=== PATIENT | female | born 1980 | race Two or more races ===

== ENCOUNTER → 2020-04-23 10:27 | Outpatient (BNVA) | payer MEDICAID, SELFPAY | PROVIDERS: PCP Internal Medicine Geriatric Medicine; Referring Provider Internal Medicine Geriatric Medicine; Visit Provider Physician Assistant | DX: K21.9 Gastro-esophageal reflux disease without esophagitis (principal); R19.7 Diarrhea, unspecified | CPT/HCPCS: 99213 ==

== ENCOUNTER 2020-05-05 09:58 | Outpatient (REF) | payer MEDICAID, SELFPAY ==
--- NOTE | 2020-05-05 | US_ITS ---
EXAMINATION: US RETROPERITONEAL LIMITED (RENAL ONLY) CLINICAL INFORMATION: Renal stones. COMPARISON: Limited retroperitoneal ultrasound study dated 12/25/2018 and 12/26/2017. KUB dated 03/03/2016. CT abdomen and pelvis without and with contrast dated 02/02/2016. TECHNIQUE: Real-time imaging of the kidneys. FINDINGS: RIGHT KIDNEY: 10.0 x 4.8 x 4.6 cm (SAG x AP x TRV). The kidney is normal in size, contour, and echogenicity. Renal cortical thickness is normal. No calculi or focal parenchymal lesions. No hydronephrosis. LEFT KIDNEY: 9.8 x 4.6 x 4.8 cm (SAG x AP x TRV). The kidney is normal in size, contour, and echogenicity. Renal cortical thickness is normal. No calculi or focal parenchymal lesions. No hydronephrosis. There is an extrarenal left kidney pelvis noted. US/US renal BI IMPRESSION: Unremarkable kidney exam. There is an extrarenal left kidney pelvis.
== END 2020-05-05 09:59 | disposition home or self-care (01) ==
LOC: HO.US 09:58
PROVIDERS: PCP Internal Medicine Geriatric Medicine; Visit Provider Urology
DX: N20.0 Calculus of kidney (principal); Z87.442 Personal history of urinary calculi
CPT/HCPCS: 76775

== ENCOUNTER → 2020-05-28 09:46 | Outpatient (BNVA) | payer MEDICAID, SELFPAY | PROVIDERS: PCP Internal Medicine Geriatric Medicine; Referring Provider Internal Medicine Geriatric Medicine; Visit Provider Internal Medicine Gastroenterology | DX: Z13.89 Encounter for screening for other disorder (principal) ==

== ENCOUNTER → 2020-06-30 08:06 | Outpatient (REF) | payer MEDICAID, SELFPAY ==
--- NOTE | 2020-06-30 08:09 | NM_ITS ---
EXAMINATION: RADIONUCLIDE SOLID FOOD GASTRIC EMPTYING 4-HOUR STUDY CLINICAL INFORMATION: Gastroesophageal reflux disease. GERD with esophagitis, bloated comment abdominal pain, COMPARISON: No previous gastric emptying study is available for comparison. TECHNIQUE: A standard meal consisting of 4 oz of Egg Beaters brand equivalent tagged with 1.0 mCi Tc-99m Sulfur Colloid, 8 oz water and 2 slices of toast with jelly was administered orally to the patient. Images were obtained using a dual head gamma camera in the anterior and posterior projections over of the stomach immediately post ingestion and at hourly intervals up to 4 hours post ingestion. The anterior and posterior counts at each time interval were averaged using the geometric mean and expressed as percentage of the immediate post ingestion counts. FINDINGS: There is good visualization of activity in the stomach immediately post ingestion. As the study progresses, there is fair clearance of activity from the stomach and visualization of progressively increasing small bowel activity there is however at the end of the study there is mild abnormal retention of activity in the stomach at 4 hours. Retention in the stomach at each time interval was: 1 hour 53% (normal 37%-90%) 2 hours 36% (normal 30%-60%) 3 hours 26% 4 hours 20% (normal 0%-10%) NM/NM gastric emptying study IMPRESSION: Abnormal study. There is mild abnormal retention of solid food in the stomach at 4 hours.
== END ==
LOC: HO.NUCMED 08:06
PROVIDERS: Visit Provider Internal Medicine Gastroenterology
DX: K21.9 Gastro-esophageal reflux disease without esophagitis (principal)
CPT/HCPCS: 78264; A9541

== ENCOUNTER → 2020-07-14 09:28 | Outpatient (BNVA) | payer MEDICAID, SELFPAY | PROVIDERS: PCP Internal Medicine Geriatric Medicine; Visit Provider Urology | DX: N20.0 Calculus of kidney (principal); R39.15 Urgency of urination; N39.3 Stress incontinence (female) (male) | CPT/HCPCS: 51798; 81002; 99212 ==

== ENCOUNTER → 2020-07-28 09:04 | Outpatient (BNVA) | payer MEDICAID, SELFPAY | PROVIDERS: PCP Internal Medicine Geriatric Medicine; Visit Provider Urology | DX: N39.3 Stress incontinence (female) (male) (principal); N20.0 Calculus of kidney; R39.15 Urgency of urination | CPT/HCPCS: 51798; 81002; 99212 ==

== ENCOUNTER 2020-08-07 09:11 | Outpatient (REF) | payer MEDICAID, SELFPAY ==
[2020-08-08 09:14] LABS: BV Int Neg Control Negative (Negative); BV Int Pos Control Positive (Positive)
[2020-08-08 13:13] LABS: C. trachomatis RNA TMA NOT DETECTED (NOT DETECTED); N. gonorrhoeae RNA TMA NOT DETECTED (NOT DETECTED)
== END 2020-08-07 09:12 | disposition home or self-care (01) ==
LOC: HO.LAB 09:11
PROVIDERS: PCP Internal Medicine Geriatric Medicine; Visit Provider Advanced Practice Midwife
DX: R10.2 Pelvic and perineal pain (principal)
CPT/HCPCS: 36415; 87480; 87491; 87510; 87591; 87660; 99212

== ENCOUNTER 2020-08-20 11:00 | Outpatient (REF) | payer MEDICAID, SELFPAY ==
--- NOTE | ~2020-08-20 | US_ITS ---
EXAMINATION: PELVIC ULTRASOUND CLINICAL INFORMATION: Pain COMPARISON: Previous pelvic ultrasound November 2019 TECHNIQUE: Transabdominal and transvaginal pelvic ultrasound was performed. Transvaginal exam was performed for better visualization of the uterus and ovaries. FINDINGS: The uterus is retroverted and measures 7.1 x 4.8 x 5.2 cm in dimension. There is a 2.5 x 2.3 x 2.3 cm hypoechoic lesion in the posterior upper uterine body and fundus suggestive of an intramural fibroid. This is minimally increased from November 2019 exam when this measured 2.1 x 1.9 x 2.2 cm. No other focal uterine lesion is seen. Endometrial thickness is normal measuring 0.5 cm. The ovaries are normal. The right ovary measures 3.1 x 1.9 x 1.9 cm and the left ovary measures 3.8 x 1.3 x 2.8 cm. There is no fluid in the pelvis. US/US pelvic complete IMPRESSION: Uterine fibroid slightly increased in size from November 2019 exam. Otherwise unremarkable exam.
--- NOTE | ~2020-08-20 | US_ITS ---
EXAMINATION: PELVIC ULTRASOUND CLINICAL INFORMATION: Pain COMPARISON: Previous pelvic ultrasound November 2019 TECHNIQUE: Transabdominal and transvaginal pelvic ultrasound was performed. Transvaginal exam was performed for better visualization of the uterus and ovaries. FINDINGS: The uterus is retroverted and measures 7.1 x 4.8 x 5.2 cm in dimension. There is a 2.5 x 2.3 x 2.3 cm hypoechoic lesion in the posterior upper uterine body and fundus suggestive of an intramural fibroid. This is minimally increased from November 2019 exam when this measured 2.1 x 1.9 x 2.2 cm. No other focal uterine lesion is seen. Endometrial thickness is normal measuring 0.5 cm. The ovaries are normal. The right ovary measures 3.1 x 1.9 x 1.9 cm and the left ovary measures 3.8 x 1.3 x 2.8 cm. There is no fluid in the pelvis. US/US transvaginal IMPRESSION: Uterine fibroid slightly increased in size from November 2019 exam. Otherwise unremarkable exam.
== END 2020-08-20 11:01 | disposition home or self-care (01) ==
LOC: HO.US 11:00
PROVIDERS: Visit Provider Advanced Practice Midwife
DX: R10.2 Pelvic and perineal pain (principal)
CPT/HCPCS: 76830; 76856

== ENCOUNTER → 2020-08-22 10:52 | Outpatient (BNV) | payer MEDICAID, SELFPAY | PROVIDERS: PCP Internal Medicine Geriatric Medicine; Visit Provider Internal Medicine Medical Oncology | DX: D50.9 Iron deficiency anemia, unspecified (principal) | CPT/HCPCS: 99213; 99214 ==

== ENCOUNTER 2020-09-03 08:48 | Outpatient (REF) | payer MEDICAID, SELFPAY ==
[2020-09-04 10:18] LABS: BV Int Neg Control Negative (Negative); BV Int Pos Control Positive (Positive)
[2020-09-06 06:12] LABS: HPV mRNA E6/E7 rflx Not Detected (Not Detected)
== END 2020-09-03 08:49 | disposition home or self-care (01) ==
LOC: HO.LAB 08:48
PROVIDERS: PCP Internal Medicine Geriatric Medicine; Visit Provider Advanced Practice Midwife
DX: Z01.419 Encounter for gynecological examination (general) (routine) without abnormal findings (principal); Z11.51 Encounter for screening for human papillomavirus (HPV); L98.9 Disorder of the skin and subcutaneous tissue, unspecified
CPT/HCPCS: 36415; 87255; 87480; 87510; 87624; 87660; 88142

== ENCOUNTER → 2020-09-10 09:42 | Outpatient (BNVA) | payer MEDICAID, SELFPAY | PROVIDERS: PCP Internal Medicine Geriatric Medicine; Visit Provider Internal Medicine | DX: R00.2 Palpitations (principal); R06.02 Shortness of breath | CPT/HCPCS: 93005; 99202 ==

== ENCOUNTER → 2020-09-12 08:53 | Outpatient (REF) | payer MEDICAID, SELFPAY ==
--- NOTE | 2020-09-12 12:00 | ECG_ITS ---
Hook-up date: 2020-09-12 10:10:00 Duration: 47:59:00 Test Indications: PALPITATIONS Medications: [id number] QRS complexes * Ventricular ectopics which represent % of total QRS comp. * Supraventricular ectopics which represent % of total QRS comp. * Paced QRS complexs which represent % of total QRS comp. VENTRICULAR ECTOPY * Isolated * Bigeminal Cycles * Couplets * Runs * Beats in Runs * Beats LONGEST at * BPM at :: -- * Beats FASTEST at * BPM at :: -- SUPRAVENTRICULAR ECTOPY * Isolated * Couplets * Runs * Beats in Runs * Beats LONGEST at * BPM at :: -- * Beats FASTEST at * BPM at :: -- HEART RATES 52 MIN at 23:54:29 2020-09-13 80 AVG 140 MAX at 12:13:40 2020-09-12 LONGEST RR 1.2560 secs at 23:54:25 2020-09-13 S-T LEVELS Channel 1 - 128 mm at 10:10:00 2020-09-12 - 128 mm at 10:10:00 2020-09-12 Channel 2 - 128 mm at 10:10:00 2020-09-12 - 128 mm at 10:10:00 2020-09-12 Channel 3 - 128 mm at 02:92:91 -- - 128 mm at 02:92:91 Underlying rhythm is sinus; Average ventricular rate 80/min; range 52 to 140/min; About 10% of the time, ventricular rate >100/min; No significant ectopy, tachy or ashwin arrhythmias; Patient diary not available for review. Referred By: Pina Blair Overread By: PINA BLAIR
== END ==
LOC: HO.CARD 08:53
PROVIDERS: PCP Internal Medicine Geriatric Medicine; Visit Provider Internal Medicine
DX: R00.2 Palpitations (principal)
CPT/HCPCS: 93226

== ENCOUNTER 2020-09-17 09:27 | Outpatient (REF) | payer MEDICAID, SELFPAY | END 2020-09-17 09:28 | disposition home or self-care (01) | LOC: HO.LAB 09:27 | PROVIDERS: PCP Internal Medicine Geriatric Medicine; Visit Provider Advanced Practice Midwife | DX: L98.9 Disorder of the skin and subcutaneous tissue, unspecified (principal) | CPT/HCPCS: 87255; 99212 ==

== ENCOUNTER → 2020-10-09 11:29 | Outpatient (BNVA) | payer MEDICAID, SELFPAY | PROVIDERS: Visit Provider Advanced Practice Midwife ==

== ENCOUNTER 2020-10-14 11:19 | Outpatient (REF) | payer MEDICAID, SELFPAY ==
[2020-10-14 12:22] LABS: COVID-19 Test Negative (Negative); IDNOW Serial# 55D5AD1C
== END 2020-10-14 11:20 | disposition home or self-care (01) ==
LOC: HO.LAB 11:19
PROVIDERS: Visit Provider Internal Medicine
DX: Z20.822 Contact with and (suspected) exposure to COVID-19 (principal)
CPT/HCPCS: 36415; 87635; C9803

== ENCOUNTER → 2020-10-21 09:37 | Outpatient (REF) | payer MEDICAID, SELFPAY ==
--- NOTE | 2020-10-21 09:40 | CA_ITS ---
Transthoracic Echocardiogram Patient (Last, First, Middle): Jen Marrero M Gender: Female Date of : 1980 Age: 40 Procedure Date: 10/21/2020 Procedure Type: Transthoracic Echocardiogram Location: OP Height: 149.86 cm Weight: 57.61 kg BSA: 1.52 m2 Heart Rate: bpm BP: 122 / 60 mmHg Sustainability Executive Director: Referring MD: Alton Pena MD Symptoms: R06.02 - Shortness of breath Study Quality: Good ECG Rhythm: Sinus Conclusions: - The left ventricular systolic function is normal. The visually estimated ejection fraction is between 60-65%. - No obvious valvular pathology seen on this study. Findings Left Ventricle Normal left ventricular cavity size. There is normal left ventricular wall thickness. The left ventricular systolic function is normal. The visually estimated ejection fraction is between 60-65%. There is no evidence of regional wall motion abnormalities. Diastolic function is normal for age. Right Ventricle Normal right ventricular cavity size and systolic function. Atria The left atrium is normal in size. The right atrium is normal in size. Aortic Valve The aortic valve was not well visualized. The aortic valve structure and function is likely normal. There is no aortic valve stenosis. There is no aortic valve regurgitation. Mitral Valve The mitral valve appears normal. There is trace mitral valve regurgitation. There is no mitral valve stenosis. Pulmonic Valve The pulmonic valve was not well visualized. Tricuspid Valve Normal tricuspid valve structure. There is mild tricuspid valve regurgitation. The pulmonary artery systolic pressure is normal. Great Vessels The aortic annulus, sinuses of valsalva, and asc aorta are normal in size. Venous The inferior vena cava is normal in size and collapses greater than 50% with inspiration. Pericardium/Pleural There is no evidence of pericardial effusion. Prior Study Comparison No prior study available for comparison. Recommendations, Care & Conclusions No obvious valvular pathology seen on this study. Measurements 2D Linear Measurements IVSd: 0.87 0.6-0.9/0.6-1.0 cm LVIDd: 3.70 3.9-5.3/4.2-5.9 cm LVIDd Index: 2.43 2.4-3.2/2.2-3.1 cm/m2 LVIDs: 2.34 2.0-3.6 cm LVPWd: 0.99 0.7-1.1 cm Ao Root: 2.00 2.1-3.5 cm LA Diam: 2.60 2.7-3.8/3.0-4.0 cm LAIDs Index: 1.71 1.5-2.3 cm/m2 LV Mass: 125.50 67-162/88-224 g LV Mass Index: 82.56 43-95/49-115 g/m2 LVOT Diam: 2.00 3.0+(-)1.3 cm 2D Systolic Function EF 4C: 68.20 >55% EF 2C: 57.60 >55% EF BiP: 60.80 >55% Mitral Valve MV Pk E: 1.01 MV PK A: 0.49 MV Decel Time: 243.00 E/A: 2.10 E'Lateral: 18.20 E'Medial: 10.90 E/E' Med: 9.30 E/E' Lat: 5.50 PHT: 71.00 MVA PHT: 3.10 Decel Rawlins: 4.18 Aortic Valve AoV Pk Manan: 1.27 AoV Mn Manan: 0.86 AoV VTI: 0.33 AoV Pk Grad: 6.00 Aov Mn Grad: 3.00 RYAN Cont.VTI: 2.24 LVOT LVOT Pk Manan: 0.92 LVOT Mn Manan: 0.62 LVOT VTI: 0.24 LVOT Pk Grad: 3.00 LVOT Mn Grad: 2.00 LVOT Diam: 2.00 LVOT Area: 3.14 Diastolic Function MV Pk E: 1.01 MV Pk A: 0.49 E/A: 2.10 E'Medial: 10.90 E/E' Med: 9.30 E' Laterial: 18.20 E/E' Lat: 5.50 Tricuspid Valve TR Pk Manan: 2.06 TR Pk Grad: 17.00 RA Press: 3.00 RVSP: 20.00 Great Vessels Aorta Ao Root-2D: 2.00 2.0-3.7 cm Ao Asc: 2.20 2.1-3.4 cm Pulmonary Valve PV Pk Manan: 0.88 Peak PV Grad: 3.00 Updated in Other Vendor System with Status of Final Alton Pena MD electronically signed on 10/21/2020 11:01:27 AM with status of Final
--- NOTE | 2020-10-21 10:30 | ECG_ITS ---
Hook-up date: 2020-10-21 10:46:00 Duration: 25:46:00 Test Indications: PALPITATIONS Medications: [id number] QRS complexes * Ventricular ectopics which represent % of total QRS comp. 5 Supraventricular ectopics which represent <1 % of total QRS comp. * Paced QRS complexs which represent % of total QRS comp. VENTRICULAR ECTOPY * Isolated * Bigeminal Cycles * Couplets * Runs * Beats in Runs * Beats LONGEST at * BPM at :: -- * Beats FASTEST at * BPM at :: -- SUPRAVENTRICULAR ECTOPY 5 Isolated 0 Couplets 0 Runs 0 Beats in Runs * Beats LONGEST at * BPM at :: -- * Beats FASTEST at * BPM at :: -- HEART RATES 53 MIN at 09:49:38 2020-10-22 80 AVG 132 MAX at 16:41:23 2020-10-21 LONGEST RR 1.2080 secs at 06:03:58 2020-10-22 S-T LEVELS Channel 1 - 128 mm at 10:46:00 2020-10-21 - 128 mm at 10:46:00 2020-10-21 Channel 2 - 128 mm at 10:46:00 2020-10-21 - 128 mm at 10:46:00 2020-10-21 Channel 3 - 128 mm at 03:00:51 -- - 128 mm at 03:00:51 Basic rhythm Normal sinus rhythm No long pause or profound bradycardia No dangerous dysrhythm periods Patient did not report any symptoms in the diary Referred By: Alton Pena Overread By: MARYBEL RICE MD
== END ==
LOC: HO.CARD 09:37
PROVIDERS: Visit Provider Internal Medicine
DX: R00.2 Palpitations (principal); R06.02 Shortness of breath
CPT/HCPCS: 93225; 93226; 93306

== ENCOUNTER → 2020-10-31 09:48 | Outpatient (BNVA) | payer MEDICAID, SELFPAY | PROVIDERS: Visit Provider Urology | DX: N39.3 Stress incontinence (female) (male) (principal); R39.15 Urgency of urination; N20.0 Calculus of kidney | CPT/HCPCS: 81002; 99212 ==

== ENCOUNTER → 2020-11-03 12:03 | Outpatient (BNVA) | payer MEDICAID, SELFPAY | PROVIDERS: PCP Internal Medicine Geriatric Medicine; Referring Provider Internal Medicine Geriatric Medicine; Visit Provider Nurse Practitioner Family | DX: R00.2 Palpitations (principal); R06.02 Shortness of breath | CPT/HCPCS: 99212 ==

== ENCOUNTER → 2020-11-19 10:48 | Outpatient (REF) | payer MEDICAID, SELFPAY ==
--- NOTE | 2020-11-19 11:11 | HM_ITS ---
INDICATION FOR TEST: Palpitations. INTERPRETATION: The patient was hooked up to cardiac event monitor from 11/19/2020 to 12/19/2020 for a total of 30 days. Only 1 rhythm strip presented which showed sinus rhythm. There were no other arrhythmias recorded or reported. There were no patient reported events. CONCLUSION: Event monitor is remarkable for: 1. Baseline normal sinus rhythm with no arrhythmias. 2. No patient reported events. Eric Sanchez MD NRS/MODL / [id number]
== END ==
LOC: HO.CARD 10:48
PROVIDERS: Visit Provider Nurse Practitioner Family
DX: R00.2 Palpitations (principal)
CPT/HCPCS: 93270

== ENCOUNTER 2020-12-22 10:16 | Outpatient (REF) | payer MEDICAID, SELFPAY ==
[2020-12-25 15:37] LABS: HPV mRNA E6/E7 rflx Not Detected (Not Detected)
== END 2020-12-22 10:17 | disposition home or self-care (01) ==
LOC: HO.LAB 10:16
PROVIDERS: Visit Provider Advanced Practice Midwife
DX: Z01.419 Encounter for gynecological examination (general) (routine) without abnormal findings (principal); E78.00 Pure hypercholesterolemia, unspecified; R00.2 Palpitations; Z79.899 Other long term (current) drug therapy
CPT/HCPCS: 87624; 88142; 99212

== ENCOUNTER → 2021-01-07 13:06 | Outpatient (BNVA) | payer MEDICAID, SELFPAY | PROVIDERS: PCP Internal Medicine Geriatric Medicine; Referring Provider Internal Medicine Geriatric Medicine; Visit Provider Nurse Practitioner Family | DX: Z01.810 Encounter for preprocedural cardiovascular examination (principal); R00.2 Palpitations; R06.02 Shortness of breath | CPT/HCPCS: 93005; 99212 ==

== ENCOUNTER → 2021-02-05 11:00 | Outpatient (BNVA) | payer MEDICAID, SELFPAY | PROVIDERS: PCP Internal Medicine Geriatric Medicine; Visit Provider Urology | DX: R10.2 Pelvic and perineal pain (principal); R39.15 Urgency of urination; N39.3 Stress incontinence (female) (male) | CPT/HCPCS: 99212 ==

== ENCOUNTER → 2021-03-30 09:08 | Outpatient (BNVA) | payer MEDICAID, SELFPAY | PROVIDERS: PCP Internal Medicine Geriatric Medicine; Visit Provider Advanced Practice Midwife | DX: D21.9 Benign neoplasm of connective and other soft tissue, unspecified (principal); N92.4 Excessive bleeding in the premenopausal period; D50.9 Iron deficiency anemia, unspecified; Z30.09 Encounter for other general counseling and advice on contraception | CPT/HCPCS: 99212 ==

== ENCOUNTER 2021-04-16 11:29 | Outpatient (REF) | payer MEDICAID, SELFPAY ==
--- NOTE | ~2021-04-16 | US_ITS ---
EXAMINATION: US PELVIC AND TRANSVAGINAL CLINICAL INFORMATION: Excessive bleeding. LMP 04/09/2021. COMPARISON: Pelvic ultrasound dated 08/20/2020 TECHNIQUE: Ultrasound of the pelvis is performed using both transabdominal and transvaginal transducers along with Doppler. Transvaginal imaging is performed due to inadequate visualization transabdominally. FINDINGS: Uterus: The uterus is anteverted and measures 9 x 3.4 x 5.1 cm. There are nabothian cysts. The double wall endometrial thickness is 0.6 mm. The uterus is smooth in contour and has normal myometrial echogenicity. Posterior uterine body fibroid measuring 2.9 x 2.6 x 3.2 cm (previously 2.5 x 2.3 x 2.3 cm). Adnexa: Both ovaries are visualized. There is normal color-flow to the adnexa. There is no ovarian torsion. There is no pelvic ascites or fluid collection. Right ovary measures 2.7 x 1.9 x 2.1 cm. Right ovarian volume of 5.6 mL. Left ovary measures 2.6 x 1.5 x 2.4 cm. Left ovarian volume of 4.9 mL. US/US pelvic and transvaginal IMPRESSION: Posterior uterine fibroid measuring up to 3.2 cm, slightly increased in size when compared to the prior examination. This previously measured up to 2.5 cm. No new myometrial lesion. Unremarkable endometrium and ovaries.
== END 2021-04-16 11:30 | disposition home or self-care (01) ==
LOC: HO.US 11:29
PROVIDERS: PCP Internal Medicine Geriatric Medicine; Visit Provider Advanced Practice Midwife
DX: N92.4 Excessive bleeding in the premenopausal period (principal); D21.9 Benign neoplasm of connective and other soft tissue, unspecified; D50.9 Iron deficiency anemia, unspecified
CPT/HCPCS: 76830; 76856

== ENCOUNTER 2021-04-30 10:06 | Outpatient (REF) | payer MEDICAID, SELFPAY ==
[2021-04-30 12:08] LABS: HCG Quantitative < 2 mIU/mL; TSH reflex Free T4 2.21 uIU/mL (0.32-4.0)
[2021-04-30 14:42] LABS: CT PCR NOT DETECTED (Not Detect.); NG PCR NOT DETECTED (Not Detect.)
== END 2021-04-30 10:07 | disposition home or self-care (01) ==
LOC: HO.LAB 10:06
PROVIDERS: PCP Internal Medicine Geriatric Medicine; Visit Provider Obstetrics & Gynecology
DX: Z11.3 Encounter for screening for infections with a predominantly sexual mode of transmission (principal); N92.4 Excessive bleeding in the premenopausal period; N93.9 Abnormal uterine and vaginal bleeding, unspecified; D21.9 Benign neoplasm of connective and other soft tissue, unspecified
CPT/HCPCS: 36415; 84443; 84702; 87491; 87591; 99212

== ENCOUNTER 2021-05-07 13:00 | Outpatient (RCR) | payer MEDICAID, SELFPAY ==
--- NOTE | 2020-11-14 10:37 | MHC.PT.EP ---
[place] Office [place] Office [place] Office [address] Sarah Lemus [address] [phone] F: [phone] F: [phone] F: [phone] F: [phone] Physical Therapy Plan of Care Date of Evaluation: Date of Surgery: Diagnosis: urinary incontinence Assessment: The patient arrived with c/o urinary incontinence and pain in her bladder after she urinates. She has significant weakness in her pelvic floor and 1st degree uterine prolapse. Her cervix is felt low in the vaginal canal. She had good pelvic floor excursion, but poor muscular endurance. Intiially she had poor kinesthetic awareness to make a good PF contraction, but this improved with cueing. I also introduced functional bracing and pre activation of the pelvic floor before coughing, laughing, sneezing. Education given to cross legs before cough laugh or sneeze to use hip adductors as a co contractor. She is an excellent candidate for skilled Pelvic floor therapy. Frequency and Duration: The patient will be seen 1x/week x 6 weeks Short Term Goals: 1. Pt to be able to correctly activate her PFM to allow improved support to bowel and bladder. 2. Pt to be able to demonstrate a pre contraction before a cough Electric Vehicle Electrician Goals: 1. Pt to be able to show improved PFM contraction during functional movements such as a bridge or squat to help prevent or limit POP. 2. Pt to reduce # of episodes of NICK during the day by 50% to help improve quality of life and reduce pad usage. 3. Pt to be independent with her final HEP for PFM in order to help maintain gains made in therapy. Treatment Plan: Modalities to reduce pain, spasms and effusion. Manual therapy to restore motion and function. Therapeutic exercise to improve strength and flexibility. Neuromuscular re-education for posture and balance. Therapeutic activities to return to functional activities of daily living. Electronically signed by: Sharon Quinones PT DPT Please sign and return to therapist. Thank you for your referral.
--- NOTE | 2021-03-06 15:43 | MHC.PT.RE ---
[facility] [place] Office [place] Office [place] Office [address] Sarah Lemus [address] [phone] F: [phone] F: [phone] F: [phone] F: [phone] Physical Therapy Re-evaluation Diagnosis: urinary incontinence Date of Surgery: Date of Evaluation: 11/14/20 Treatments to Date: 7 Cancellations to Date: No Shows to Date: Subjective: The patient has not been seen for 6 weeks. In this time she reports she has been globally more fatigued. She feels she has no energy. She has pain with penetration. She has not been exercising. She feels too tired to do anything. She has returned to her medical doctor who discussed the fatigue could be coming from her fibroids in her uterus. The patient was told to consider surgery. The patient has not been doing her PFM exercises. She reports a lot of pressure in her lower abdomen. She feels it is occurring internally. Pain Score: 2 Pain Location: Objective Measures: PERF 01/16/21 PERF 03/06/21 Assessment: The patient's uterus was felt at 1.5 knuckles deep in the vaginal. she has a Grade 1+ uterine prolapse. The patient would likely be a good candidate for pessary placement. I recommended she speak to her STEWARD/[employer]. I strongly urged her to medically manage her symptoms of fatigue. She will f/u with her STEWARD/[employer]/primary care doctor regarding her fibroids. She initially had pain in the anterior vaginal wall internally, but this soreness dissipated fairly quickly with sweeping and bimanual technique. The patient was encouraged to resume her pelvic floor HEP since she has had a decline in coordination and strength since January. Short Term Goals: 1. Pt to be able to correctly activate her PFM to allow improved support to bowel and bladder. 2. Pt to be able to demonstrate a pre contraction before a cough 3 Pt to have a consult with STEWARD/[employer] for pessary placement. 4. pt to be medically managed for new onset of fatigue. Nutritionist Public Health Goals: 1. Pt to be able to show improved PFM contraction during functional movements such as a bridge or squat to help prevent or limit POP. 2. Pt to reduce # of episodes of NICK during the day by 50% to help improve quality of life and reduce pad usage. 3. Pt to be independent with her final HEP for PFM in order to help maintain gains made in therapy. Frequency and Duration: The patient will be seen 1x every 2 weeks. Treatment Plan: Therapeutic Exercise Dynamic Therapeutic Activities Neuromuscular Re-ed Manual Therapies Home Exercise Program Patient Education Pelvic Floor Therapy Pelvic Floor Therapy Reviewed/ Agreed with Student Documentation: Therapist: Electronically signed by: Sharon Quinones PT DPT Please sign and return to therapist. Thank you for your referral.
--- NOTE | 2021-05-07 15:38 | MHC.PT.DC ---
[facility] [place] Office [place] Office [place] Office [address] Sarah Lemus [address] [phone] F: [phone] F: [phone] F: [phone] F: [phone] Physical Therapy Discharge Report Diagnosis: urinary incontinence Date of Surgery: Date of Evaluation: 11/14/20 Date of Discharge: Treatments to Date: 10 Cancellations to Date: No Shows to Date: Discharge Status: Discharge Summary: Pt's strength was reassessed. Overall, she has significant improvement in the endurance of her pelvic floor, but no improvement since April in her power. She no longer had pelvic pain today. No pain in her lower abdomen which has been consistent. She is very pleased with all of the information she has learned. She can comfortably have a bowel movement. No changes currently in her urine stream. The patient's cervix is still 2 knuckles away from her introitus. I educated her if she has trouble with urine stream, bowel movements, pelvic pain, or falling out she should return to her OBGYN and discuss a pessary as an option. The patient reports she has had to push her cervix back in manually with her finger This was a few months ago when she was ill. Pt educated on pressure modulation of her abdomen to reduce pressure or strain on the PFM. I reviewed safe ways to have a bowel movement, use of stool or squatty potty. She is independent with her exercises for pelvic floor muscle activation as well as how to safely progress them. She will be d/c from skilled PT at this time with a HEP. Electronically signed by: Please sign and return to therapist. Thank you for your referral.
== END 2021-05-07 15:42 | disposition home or self-care (01) ==
LOC: HO.PT 13:00
PROVIDERS: Visit Provider Urology
DX: Z13.89 Encounter for screening for other disorder (principal)
CPT/HCPCS: 97110; 97112; 97140; 97161; 97530

== ENCOUNTER 2021-05-18 11:33 | Outpatient (REF) | payer MEDICAID, SELFPAY ==
[2021-05-18 14:02] LABS: Syphilis Screen Nonreactive (Nonreactive)
[2021-05-18 14:53] LABS: CT PCR NOT DETECTED (Not Detect.); NG PCR NOT DETECTED (Not Detect.)
[2021-05-19 09:15] LABS: BV Int Neg Control Negative (Negative); BV Int Pos Control Positive (Positive)
[2021-05-20 08:53] LABS: HIV AB/AG Nonreactive (Nonreactive); HIV Num 1 0.07 S/CO (0.00-0.99)
[2021-05-20 09:08] LABS: HBsAGNum1 0.17 S/CO (0.00-0.99); Hepatitis B Surface Antigen Negative (Negative); ~HepC Num1 0.11 S/CO (0.00-0.79); ~Hepatitis C Antibody Nonreactive (Nonreactive)
== END 2021-05-18 11:34 | disposition home or self-care (01) ==
LOC: HO.LAB 11:33
PROVIDERS: PCP Internal Medicine Geriatric Medicine; Visit Provider Obstetrics & Gynecology
DX: N76.6 Ulceration of vulva (principal); N92.4 Excessive bleeding in the premenopausal period
CPT/HCPCS: 36415; 58100; 86780; 86803; 87255; 87340; 87389; 87480; 87491; 87510; 87591; 87660; 88305; 99212

== ENCOUNTER 2021-05-27 12:54 | Outpatient (REF) | payer MEDICAID, SELFPAY ==
--- NOTE | ~2021-05-27 | US_ITS ---
EXAMINATION: US RETROPERITONEAL LIMITED (RENAL ONLY) CLINICAL INFORMATION: Calculus of kidney. COMPARISON: Renal ultrasound 05/05/2020 and 12/25/2018. KUB 03/03/2016. CT abdomen and pelvis 02/02/2016. TECHNIQUE: Real-time imaging of the kidneys. FINDINGS: RIGHT KIDNEY: 9.3 x 3.9 x 3.6 cm (SAG x AP x TRV). The kidney is normal in size, contour, and echogenicity. Renal cortical thickness is normal. No focal parenchymal lesions or hydronephrosis. There are echogenic stones without shadowing. They measure 0.4 x 0.4 cm in upper pole, 0.3 cm in midpole and 0.4 cm in the lower pole. LEFT KIDNEY: 8.7 x 4.1 x 4.5 cm (SAG x AP x TRV). The kidney is normal in size, contour, and echogenicity. Renal cortical thickness is normal. No focal parenchymal lesions or hydronephrosis. There is an echogenic stone in the upper pole measuring 0.3 x 0.3 cm with an extrarenal kidney pelvis. US/US renal BI IMPRESSION: Nonobstructive bilateral echogenic renal calculi. No hydronephrosis seen. There is an extrarenal right kidney pelvis.
== END 2021-05-27 12:55 | disposition home or self-care (01) ==
LOC: HO.US 12:54
PROVIDERS: PCP Internal Medicine Geriatric Medicine; Visit Provider Urology
DX: N20.0 Calculus of kidney (principal)
CPT/HCPCS: 76775

== ENCOUNTER → 2021-06-03 09:01 | Outpatient (BNVA) | payer MEDICAID, SELFPAY | PROVIDERS: PCP Internal Medicine Geriatric Medicine | DX: N20.0 Calculus of kidney (principal); N39.46 Mixed incontinence | CPT/HCPCS: 51798; 99212 ==

== ENCOUNTER 2021-06-08 09:00 | Outpatient (REF) | payer MEDICAID, SELFPAY | END 2021-06-08 09:01 | disposition home or self-care (01) | LOC: HO.LAB 09:00 | PROVIDERS: PCP Internal Medicine Geriatric Medicine; Visit Provider Obstetrics & Gynecology | DX: N76.6 Ulceration of vulva (principal); N92.4 Excessive bleeding in the premenopausal period | CPT/HCPCS: 87255; 99212 ==

== ENCOUNTER → 2021-06-24 12:45 | Outpatient (BNVA) | payer MEDICAID, SELFPAY | PROVIDERS: PCP Internal Medicine Geriatric Medicine; Visit Provider Obstetrics & Gynecology | DX: N76.6 Ulceration of vulva (principal) | CPT/HCPCS: 99212 ==

== ENCOUNTER 2021-08-05 12:25 | Outpatient (REF) | payer MEDICAID, SELFPAY ==
--- NOTE | ~2021-08-05 | US_ITS ---
EXAMINATION: US RETROPERITONEAL LIMITED (RENAL ONLY) CLINICAL INFORMATION: Calculus of kidney. COMPARISON: Ultrasound renal 05/27/2021 and 05/05/2020. X-ray KUB 03/03/2016. TECHNIQUE: Real-time imaging of the kidneys. FINDINGS: RIGHT KIDNEY: 9.2 x 3.7 x 5.4 cm (SAG x AP x TRV). The kidney is normal in size, contour, and echogenicity. Renal cortical thickness is normal. No focal parenchymal lesions or hydronephrosis. There is multiple echogenic foci seen without shadowing. There are 2 small echogenic stones. A lower pole stone measures 0.2 x 0.12 cm, an upper pole stone measures 0.3 x 0.24 cm. LEFT KIDNEY: 10.2 x 4.5 x 4.4 cm (SAG x AP x TRV). The kidney is normal in size, contour, and echogenicity. Renal cortical thickness is normal. No focal parenchymal lesions or hydronephrosis. There is an echogenic stone in the midpole measuring 0.3 cm x 0.33 cm. There are several echogenic foci question calcification versus small stones. US/US renal BI IMPRESSION: Multiple echogenic foci or small stones versus calcification. There are slightly prominent echogenic stones in both kidneys but no caliectasis or hydronephrosis seen.
== END 2021-08-05 12:26 | disposition home or self-care (01) ==
LOC: HO.US 12:25
PROVIDERS: PCP Internal Medicine Geriatric Medicine
DX: N20.0 Calculus of kidney (principal)
CPT/HCPCS: 76775

== ENCOUNTER 2021-09-04 13:51 | Outpatient (REF) | payer MEDICAID, SELFPAY ==
[2021-09-05 06:22] LABS: CT PCR NOT DETECTED (Not Detect.); NG PCR NOT DETECTED (Not Detect.)
[2021-09-05 10:00] LABS: BV Int Neg Control Negative (Negative); BV Int Pos Control Positive (Positive)
== END 2021-09-04 13:52 | disposition home or self-care (01) ==
LOC: HO.LAB 13:51
PROVIDERS: PCP Internal Medicine Geriatric Medicine; Visit Provider Advanced Practice Midwife
DX: Z01.411 Encounter for gynecological examination (general) (routine) with abnormal findings (principal); Z20.2 Contact with and (suspected) exposure to infections with a predominantly sexual mode of transmission; D21.9 Benign neoplasm of connective and other soft tissue, unspecified; N92.4 Excessive bleeding in the premenopausal period; N76.6 Ulceration of vulva; B00.9 Herpesviral infection, unspecified
CPT/HCPCS: 87480; 87491; 87510; 87591; 87660

== ENCOUNTER → 2021-09-14 22:05 | Outpatient (REF) | payer MEDICAID, SELFPAY | LOC: HO.SL 22:05 | PROVIDERS: PCP Internal Medicine Geriatric Medicine; Visit Provider Emergency Medicine | DX: G47.19 Other hypersomnia (principal) | CPT/HCPCS: 95810 ==

== ENCOUNTER → 2021-09-18 10:38 | Outpatient (BNVA) | payer MEDICAID, SELFPAY | DX: Z13.89 Encounter for screening for other disorder (principal) ==

== ENCOUNTER 2021-10-07 11:36 | Outpatient (REF) | payer MEDICAID, SELFPAY ==
--- NOTE | ~2021-10-07 | US_ITS ---
EXAMINATION: US PELVIS CLINICAL INFORMATION: Follow-up fibroids COMPARISON: Previous pelvic ultrasound most recent April 2021 TECHNIQUE: Ultrasound of the pelvis is performed using both transabdominal and transvaginal transducers along with Doppler. Transvaginal imaging is performed due to inadequate visualization transabdominally. FINDINGS: The uterus is anteverted and retroflexed and measures 8.5 x 4.7 x 4.6 cm in dimension. There is a 3.3 x 2.4 x 3.4 cm lesion in the uterine body suggestive of a fibroid. This measured 2.9 x 2.6 x 3.2 cm on most recent previous exam. No other focal uterine lesion is seen. Endometrial thickness is normal measuring 0.5 cm. There are nabothian cysts in the cervix. The right ovary measures 2.7 x 1.6 x 1.7 cm. The left ovary measures 3.3 x 1.2 x 2.4 cm. There is a small amount of fluid in the pelvis. US/US pelvic and transvaginal IMPRESSION: Slight interval increase in size in the uterine fibroid.
== END 2021-10-07 11:37 | disposition home or self-care (01) ==
LOC: HO.US 11:36
PROVIDERS: Visit Provider Advanced Practice Midwife
DX: D21.9 Benign neoplasm of connective and other soft tissue, unspecified (principal); N92.4 Excessive bleeding in the premenopausal period
CPT/HCPCS: 76830; 76856

== ENCOUNTER → 2021-10-21 13:56 | Outpatient (BNVA) | payer MEDICAID, SELFPAY | PROVIDERS: Visit Provider Advanced Practice Midwife | DX: Z13.89 Encounter for screening for other disorder (principal) ==

== ENCOUNTER 2021-11-05 07:41 | Outpatient (REF) | payer MEDICAID, SELFPAY ==
--- NOTE | ~2021-11-05 | MM_ITS ---
EXAMINATION: MM SCREENING DIGITAL BREAST TOMOSYNTHESIS, BILATERAL CLINICAL INFORMATION: Screening. Asymptomatic. The lifetime risk of breast cancer based on the Tyrer-Cuzick Model is 15.3%. COMPARISON: Mammography: None TECHNIQUE: Digital breast tomosynthesis is performed in both the craniocaudal and mediolateral oblique views along with computer-aided detection (CAD). Synthesized 2D images are generated from the tomosynthesis. FINDINGS: The breasts are heterogeneously dense, which may obscure small masses (ACR BI-RADS breast composition Category c). There are no significant masses, abnormal calcifications, or other abnormalities. MM/MM tomosynthesis screening BI IMPRESSION: No mammographic evidence of malignancy. ASSESSMENT: BI-RADS 1: Negative RECOMMENDATION: Routine annual mammography screening. This patient's information was entered into a reminder system with a target due date for their next mammogram.
== END 2021-11-05 07:42 | disposition home or self-care (01) ==
LOC: HO.MAMMO 07:41
PROVIDERS: Visit Provider Internal Medicine Geriatric Medicine
DX: Z12.31 Encounter for screening mammogram for malignant neoplasm of breast (principal)
CPT/HCPCS: 77063; 77067

== ENCOUNTER 2021-11-18 08:03 | Outpatient (REF) | payer MEDICAID, SELFPAY | END 2021-11-18 08:04 | disposition home or self-care (01) | LOC: HO.LAB 08:03 | PROVIDERS: Visit Provider Obstetrics & Gynecology | DX: N93.9 Abnormal uterine and vaginal bleeding, unspecified (principal); D21.9 Benign neoplasm of connective and other soft tissue, unspecified | CPT/HCPCS: 58100; 88305; 99212 ==

== ENCOUNTER → 2021-12-02 08:31 | Outpatient (BNVA) | payer MEDICAID, SELFPAY | PROVIDERS: PCP Internal Medicine Geriatric Medicine; Visit Provider Obstetrics & Gynecology | DX: N93.9 Abnormal uterine and vaginal bleeding, unspecified (principal) | CPT/HCPCS: 99212 ==

== ENCOUNTER → 2021-12-03 09:12 | Outpatient (BNVA) | payer MEDICAID, SELFPAY | PROVIDERS: PCP Internal Medicine Geriatric Medicine; Referring Provider Internal Medicine Geriatric Medicine; Visit Provider Internal Medicine | DX: R06.02 Shortness of breath (principal) | CPT/HCPCS: 93005; 99212 ==

== ENCOUNTER → 2021-12-21 09:46 | Outpatient (REF) | payer MEDICAID, SELFPAY ==
--- NOTE | 2021-12-21 09:48 | CA_ITS ---
Acquisition Time: 2021-12-21 10:02:03 Total Exercise Time: 00:12:00 Test Indications: Weakness and tired Medications: see med sheet Protocol: YONG Max HR: 190 BPM 105% of Pred: 180 BPM Max BP: 156/072 mmHG Max Work Load: 13.7 METS Exercise stress test with exercise 12 min of Yong protocol, achieving 105% MPHR, 13.4 METs, without anginal symptoms, without arrythmia, with normotensive response to exercise, without EKG changes meeting criteria for ischemia. Test reviewed with Dr Sanchez. Referred By: Alton Pena Overread By: FLORA BARLOW
== END ==
LOC: HO.CARD 09:46
PROVIDERS: Visit Provider Internal Medicine
DX: R06.02 Shortness of breath (principal)
CPT/HCPCS: 93017

== ENCOUNTER → 2022-01-18 09:23 | Outpatient (REF) | payer MEDICAID, SELFPAY ==
--- NOTE | 2022-01-18 09:26 | CA_ITS ---
Transthoracic Echocardiogram Patient (Last, First, Middle): Jen Marrero M Gender: Female Date of : 1980 Age: 41 Procedure Date: 01/18/2022 Procedure Type: Transthoracic Echocardiogram Location: OP Height: 149.86 cm Weight: 61.24 kg BSA: 1.56 m2 Heart Rate: bpm BP: 124 / 70 mmHg Staging Technician: Referring MD: Alotn Pena MD Trash Truck Driver: Eric Sanchez MD Symptoms: R06.02 - Shortness of breath Study Quality: Good ECG Rhythm: Sinus Conclusions: - 1. Normal LV systolic function with grade 1 diastolic dysfunction 2. Normal cardiac valvular Doppler 3. Normal RV systolic pressure 4. No gross pericardial effusion Findings Left Ventricle Normal left ventricular size, thickness, and systolic function. The visually estimated ejection fraction is between 60-65%. Spectral Doppler is indicative of an impaired relaxation filling pattern. E/E prime ratio is <8, consistent with normal filling pressures. Right Ventricle Normal right ventricular cavity size and systolic function. Atria Both atria are normal in size. There is no evidence of interatrial shunt. Aortic Valve Normal aortic valve structure and function. There is no aortic valve stenosis. There is no aortic valve regurgitation. Mitral Valve Normal mitral valve structure and function. There is no mitral valve regurgitation. There is no mitral valve stenosis. Pulmonic Valve The pulmonic valve is likely normal. Tricuspid Valve Normal tricuspid valve structure. There is trace tricuspid valve regurgitation. The right ventricular systolic pressure is normal. The right ventricular systolic pressure is 16 mmHg. Normal right atrial pressure. There is no evidence of pulmonary hypertension. Great Vessels All visible segments of the aorta are normal in size. The pulmonary artery was not well visualized. Venous The inferior vena cava is normal in size and collapses greater than 50% with inspiration. Pericardium/Pleural There is no evidence of pericardial effusion. Prior Study Comparison No significant change compared to prior study dated: 10/21/2021. Measurements 2D Linear Measurements IVSd: 0.91 0.6-0.9/0.6-1.0 cm LVIDd: 4.01 3.9-5.3/4.2-5.9 cm LVIDd Index: 2.57 2.4-3.2/2.2-3.1 cm/m2 LVIDs: 2.67 2.0-3.6 cm LVPWd: 0.84 0.7-1.1 cm Ao Root: 2.00 2.1-3.5 cm LA Diam: 3.20 2.7-3.8/3.0-4.0 cm LAIDs Index: 2.05 1.5-2.3 cm/m2 LV Mass: 132.00 67-162/88-224 g LV Mass Index: 84.61 43-95/49-115 g/m2 LVOT Diam: 1.90 3.0+(-)1.3 cm Mitral Valve MV Pk E: 1.06 MV PK A: 0.44 MV Decel Time: 137.00 E/A: 2.40 E'Lateral: 15.60 E'Medial: 11.40 E/E' Med: 9.30 E/E' Lat: 6.80 PHT: 40.00 MVA PHT: 5.50 Decel Bethel: 7.76 Aortic Valve AoV Pk Manan: 1.19 AoV Mn Manan: 0.77 AoV VTI: 0.29 AoV Pk Grad: 6.00 Aov Mn Grad: 3.00 RYAN Cont.VTI: 2.02 LVOT LVOT Pk Manan: 0.87 LVOT Mn Manan: 0.56 LVOT VTI: 0.20 LVOT Pk Grad: 3.00 LVOT Mn Grad: 2.00 LVOT Diam: 1.90 LVOT Area: 2.84 Diastolic Function MV Pk E: 1.06 MV Pk A: 0.44 E/A: 2.40 E'Medial: 11.40 E/E' Med: 9.30 E' Laterial: 15.60 E/E' Lat: 6.80 Tricuspid Valve TR Pk Manan: 1.77 TR Pk Grad: 13.00 RA Press: 3.00 RVSP: 16.00 Great Vessels Aorta Ao Root-2D: 2.00 2.0-3.7 cm Pulmonary Valve PV Pk Manan: 0.92 Peak PV Grad: 3.00 Updated in Other Vendor System with Status of Final Eric Sanchez MD electronically signed on 01/18/2022 11:08:19 AM with status of Final
== END ==
LOC: HO.CARD 09:23
PROVIDERS: PCP Internal Medicine Geriatric Medicine; Visit Provider Internal Medicine
DX: R06.02 Shortness of breath (principal)
CPT/HCPCS: 93306

== ENCOUNTER 2022-02-15 09:25 | Outpatient (REF) | payer MEDICAID, SELFPAY ==
--- NOTE | ~2022-02-15 | US_ITS ---
EXAMINATION: US RETROPERITONEAL LIMITED (RENAL ONLY) CLINICAL INFORMATION: Calculus of kidney. COMPARISON: US retroperitoneal limited (renal only) 08/05/2021 and 05/27/2021. XR abdomen KUB 03/03/2016. CT abdomen and pelvis without and with contrast 02/02/2016. TECHNIQUE: Real-time imaging of the kidneys. FINDINGS: RIGHT KIDNEY: 10.7 x 4.1 x 4.8 cm (SAG x AP x TRV). The kidney is normal in size, contour, and echogenicity. Renal cortical thickness is normal. No calculi or focal parenchymal lesions. No hydronephrosis. LEFT KIDNEY: 10.0 x 4.2 x 5.0 cm (SAG x AP x TRV). The kidney is normal in size, contour, and echogenicity. Renal cortical thickness is normal. No renal calculi or hydronephrosis. A simple cyst of the lower pole measures up to 3.1 cm. No renal imaging follow-up is recommended for a simple cyst. US/US renal BI IMPRESSION: No renal calculi are identified on this follow-up examination. No hydronephrosis.
== END 2022-02-15 09:26 | disposition home or self-care (01) ==
LOC: HO.US 09:25
PROVIDERS: PCP Internal Medicine Geriatric Medicine
DX: N20.0 Calculus of kidney (principal)
CPT/HCPCS: 76775

== ENCOUNTER 2022-05-17 09:00 | Outpatient (RCR) | payer MEDICAID, SELFPAY ==
--- NOTE | 2022-04-29 10:24 | MHC.OT.OP ---
[address] [phone] F: [phone] Occupational Therapy Progress Note Diagnosis: Left DeQuervains tendonitis Date of Surgery: Date of Evaluation: 03/24/22 Treatments to Date: 6 Cancellations to Date: 1 No Shows to Date: 0 Subjective: 04/29: It's definitely getting better. I can use it more. Pt. reports starting new medication for joint pain/stiffness. Pt reports pain primarily at left thumb MP jt flexion Pain Score: 4 Pain Location: L thumb/wrist Objective Measures: L wrist flex/ext: 55/65 MCP flexion R: 50 degrees L: 45 degrees Opposition: Able to touch SF crease Gross grasp: R: 40# L: 10# Lateral pinch R: 14# L: 5# Functional Dexterity Test: L: 36.3 seconds Status: Progressing Assessment: Pt. was seen for OT re-eval this date. Jen is progressing well in OT and met 3/5 STG's set on admission. Functional gains as follows: Pt. is able to make full composite fist without pain. Wrist and thumb AROM is WFL's. Pt. reports improved functional use of left hand with ADL's/IADL's and fine motor improvement is improving as evidenced by 9 second improvement on FDT. Limitations remain 4/10 pain in left radial wrist, and decreased left grasp strength 10# (compared to 40 on the R). Pt. would benefit from continued OT services to for pain management and strengthening as tolerated. 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
--- NOTE | 2022-05-17 09:42 | MHC.OT.DC ---
[address] [phone] F: [phone] Occupational Therapy Discharge Note Provider: Rosa Perera Diagnosis: Left DeQuervains tendonitis Date of Surgery: Date of Evaluation: 03/24/22 Date of Discharge: Treatments to Date: 8 Cancellations to Date: No Shows to Date: Discharge Status: Achieved Goals Improved Function Discharge Summary: Left wrist and hand pain improved. 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 Improved hand dexterity now WNL Pt is indep with her HEP and should continue to improve LUE strength . Skilled OT not needed at this time Electronically Signed By: Jeanne Gasca OT CHT CLT Reviewed/agree with student documentation: N/A Therapist: Please Sign and return to therapist, thank you for your referral.
== END 2022-05-17 09:43 | disposition home or self-care (01) ==
LOC: HO.OT 09:00
PROVIDERS: PCP Internal Medicine Geriatric Medicine; Visit Provider Internal Medicine
DX: M65.4 Radial styloid tenosynovitis [de Quervain] (principal)
CPT/HCPCS: 97033; 97035; 97110; 97140; 97165

== ENCOUNTER → 2022-06-09 10:08 | Outpatient (BNVA) | payer MEDICAID, SELFPAY | PROVIDERS: PCP Internal Medicine Geriatric Medicine; Visit Provider Orthopaedic Surgery | DX: M25.532 Pain in left wrist (principal) | CPT/HCPCS: 99202 ==

== ENCOUNTER → 2022-07-30 15:22 | Outpatient (BNVA) | payer MEDICAID, SELFPAY | PROVIDERS: PCP Internal Medicine Geriatric Medicine; Visit Provider Orthopaedic Surgery | DX: M25.532 Pain in left wrist (principal) | CPT/HCPCS: 99212 ==

== ENCOUNTER 2023-03-11 11:36 | Outpatient (REF) | payer MEDICAID, SELFPAY ==
--- NOTE | ~2023-03-11 | US_ITS ---
EXAMINATION: US RETROPERITONEAL LIMITED (RENAL ONLY) CLINICAL INFORMATION: Calculus of kidney. COMPARISON: Renal ultrasound 02/15/2022 and 08/05/2021. X-ray KUB 03/03/2016. CT abdomen and pelvis 02/02/2016. TECHNIQUE: Real-time imaging of the kidneys. FINDINGS: RIGHT KIDNEY: 10.1 x 4.5 x 5.1 cm (SAG x AP x TRV). The kidney is normal in size, contour, and echogenicity. Renal cortical thickness is normal. No calculi or focal parenchymal lesions. No hydronephrosis. LEFT KIDNEY: 9.6 x 4.3 x 4.9 cm (SAG x AP x TRV). The kidney is normal in size, contour, and echogenicity. Renal cortical thickness is normal. No calculi or focal parenchymal lesions. No hydronephrosis. There is mild fullness of the renal pelvis. US/US renal BI IMPRESSION: No renal calculi identified.
== END 2023-03-11 11:37 | disposition home or self-care (01) ==
LOC: HO.US 11:36
PROVIDERS: PCP Internal Medicine Geriatric Medicine; Visit Provider Urology
DX: N20.0 Calculus of kidney (principal)
CPT/HCPCS: 76775

== ENCOUNTER → 2023-03-18 08:00 | Outpatient (BNV) | payer MEDICAID, SELFPAY | PROVIDERS: PCP Internal Medicine Geriatric Medicine; Visit Provider Radiology Diagnostic Radiology | DX: Z12.31 Encounter for screening mammogram for malignant neoplasm of breast (principal) | CPT/HCPCS: 77063; 77067 ==

== ENCOUNTER 2023-03-18 08:01 | Outpatient (REF) | payer MEDICAID, SELFPAY ==
--- NOTE | ~2023-03-18 | MM_ITS ---
EXAMINATION: MM SCREENING DIGITAL BREAST TOMOSYNTHESIS, BILATERAL CLINICAL INFORMATION: Screening. Asymptomatic. COMPARISON: Mammography: This study is compared with prior exams dating back to 2021. TECHNIQUE: Digital breast tomosynthesis is performed in both the craniocaudal and mediolateral oblique views along with computer-aided detection (CAD). Synthesized 2D images are generated from the tomosynthesis. FINDINGS: The breasts are heterogeneously dense, which may obscure small masses (ACR BI-RADS breast composition Category c). There are no significant masses, abnormal calcifications, or other abnormalities. MM/MM tomosynthesis screening BI IMPRESSION: No mammographic evidence of malignancy. ASSESSMENT: BI-RADS BI-RADS 1 - Negative RECOMMENDATION: Routine annual mammography screening. 1 year F/U This examination should not preclude the clinical evaluation of a suspicious palpable abnormality. This patient's information was entered into a reminder system with a target due date for their next mammogram.
== END 2023-03-18 08:02 | disposition home or self-care (01) ==
LOC: HO.MAMMO 08:01
PROVIDERS: PCP Internal Medicine Geriatric Medicine; Visit Provider Internal Medicine Geriatric Medicine
DX: Z12.31 Encounter for screening mammogram for malignant neoplasm of breast (principal)
CPT/HCPCS: 77063; 77067; 99212

== ENCOUNTER 2023-03-18 15:54 | Outpatient (AMB) | payer MEDICAID, SELFPAY ==
--- NOTE | 2023-03-18 15:56 | A.OFFVIS_ITS ---
Intake Intake Visit Reasons: 1Y US(set) Intake Note: Patient presents for follow up bilateral nephrolithiasis/ultrasound Urology Medications: Vitamin B6 Blood Thinner: none Community Living Instructor Required: No Accompanied by: Self / Same As Patient Allergies acetaminophen [Percocet] Adverse Reaction (Unknown, Verified 03/18/23 16:04) stomach pain oxycodone [Percocet] Adverse Reaction (Unknown, Verified 03/18/23 16:04) stomach pain wheat/egg Allergy (Unknown, Uncoded 03/18/23 16:04) throat irritation, stomach upset Medication List - Last Reconciled 03/18/23 by Trent Castellanos MD atorvastatin 40 mg PO DAILY cetirizine 10 mg PO DAILY cholecalciferol (vitamin D3) (Vitamin D3) 25 mcg PO DAILY diclofenac sodium 1% 2 grams topical TID iron,carbonyl-vitamin C 65 mg iron- 125 mg (Vitron-C) 1 tab PO DAILY norgestrel-ethinyl estradiol 0.3-30 mg-mcg 1 tab PO DAILY pyridoxine (vitamin B6) 100 mg PO DAILY 90 days HPI HPI Comments History of Present Illness Details Jen is a pleasant female. She is a patient of Dr Mcclendon. She is seen for the following urologic issues - nephrolithiasis - mixed urinary incontinence - pelvic floor pain Discussed ultrasound findings - no evidence of stones Has control of urination currently without medications Urine urgency and frequency is aggravated by coffee, chocolate and spicy food Completed pelvic floor physical therapy late 2020 12 month follow-up imaging Nephrolithiasis Imaging - 04/22 renal ultrasound NAD - 02/22 Renal US - no stones, cyst left c yst - 02/23 renal ultrasound evidence of ston es Remain on vitamin B6 Mixed urinary incontinence background of IBS Per patient does have mild stress incontinence and significant urge and frequency incontinence Failed oxybutynin 5 mg had trialed on 15 mg which she also failed Prior medications Toviaz 8 mg Completed pelvic floor physical therapy 04/23 [facility] Medical History Bilateral nephrolithiasis Urinary, incontinence, stress female Urgency of micturition Renal stone IBS (irritable colon syndrome) GERD (gastroesophageal reflux disease) Irritable bowel Acid reflux Surgical History Hx of section History of esophagogastroduodenoscopy (EGD) Family History Sister Breast cancer Social History Household Members: Children Housing: Apartment Are you a primary ambulatory care nurse to a significant other at home: No Do you presently have visiting nurse or other home services: No Alcohol intake: never Patient Tobacco Use Status: Never used Tobacco service: No Current occupational status: employed 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 Gender identity: Female Female Reproductive History Menstrual Age of Menarche: 14 Review of Systems Const Denies chills and Denies fever(s) Card Reports no additional complaints and Denies syncope Resp Denies cough GI Denies abdominal pain and Denies heartburn Reports as per HPI and Denies change in libido Neuro Denies syncope Psych Denies change in libido Endo Denies change in libido Physical Exam Const General: cooperative, healthy appearing, comfortable and no acute distress Orientation/consciousness: patient oriented x3 HEENT Face and sinus: Yes normal facial exam Mouth: moist mucous membranes Neck Neck: Yes normal visual inspection, Yes full ROM and Yes trachea midline Chest Chest palpation & inspection: normal inspection of the chest Resp Effort & Inspection: normal respiratory effort, able to speak in complete sentences and no respiratory distress GI Inspection: Yes normal to inspection Back/Spine/Pelvis Cervical Spine: normal cervical lordosis Thoracic/Lumbar Spine: thoracic and lumbar spine normal to inspection Skin General skin exam: no rashes or lesions noted Neuro General: patient oriented x3, gait normal, tone normal and moves all extremities Extrem General: Yes normal to inspection and Yes capillary refill normal Assessment & Plan Assessment & Plan (1) Bilateral nephrolithiasis: Code(s): N20.0 - Calculus of kidney Plan Twelve month follow-up Orders: Orders US renal BI 364 Days N20.0 - Calculus of kidney Patient Instructions: Imaging studies, laboratory and physical exam results were discussed and reviewed in detail. No major barriers to patient understanding were identified. An opportunity to ask questions regarding the treatment plan was provided. All questions were answered. The patient expressed understanding and agreement with the above treatment plan. The patient is aware they should contact our office by phone for worsening of their current condition or the appearance of new urologic symptoms. Compliance is encouraged with any medications and followup testing that is ordered. It is a privilege to participate in the urologic care of your patient. If you have any questions or concerns regarding treatment for the above conditions, or other urologic issues, please do not hesitate to contact me. The office telephone contact is [phone]. This note is constructed using voice recognition software. While every effort has been made to ensure accuracy feather cutting machine feeder errors may have been included. Yours sincerely, Dr Trent Castellanos MD, [facility] - Urology Providers of Expert, Compassionate Care for the Genitourinary System Coding Level of Care Code Est Pt Level 4 (24047) Diagnoses Bilateral nephrolithiasis N20.0
== END 2023-03-18 16:12 | disposition home or self-care (01) ==
PROVIDERS: PCP Internal Medicine Geriatric Medicine; Visit Provider Urology
DX: N20.0 Calculus of kidney (principal)
CPT/HCPCS: 99213

== ENCOUNTER 2023-03-31 14:46 | Outpatient (REF) | payer MEDICAID, SELFPAY ==
[2023-04-01 11:09] LABS: CT PCR NOT DETECTED (Not Detect.); NG PCR NOT DETECTED (Not Detect.)
[2023-04-01 11:15] LABS: BV Int Neg Control Negative (Negative); BV Int Pos Control Positive (Positive)
== END 2023-03-31 14:47 | disposition home or self-care (01) ==
LOC: HO.LNP 14:46
PROVIDERS: PCP Internal Medicine Geriatric Medicine; Visit Provider Obstetrics & Gynecology
DX: Z01.419 Encounter for gynecological examination (general) (routine) without abnormal findings (principal); R10.2 Pelvic and perineal pain; N76.0 Acute vaginitis
CPT/HCPCS: 0353U; 87480; 87510; 87660; 99396

== ENCOUNTER 2023-03-31 14:46 | Outpatient (AMB) | payer MEDICAID, SELFPAY ==
--- NOTE | 2023-03-31 14:48 | A.OFFVIS_ITS ---
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/DO NOT RS Construction Stonemason Required: Yes Construction Stonemason Language: Loader Unloader Name: Annel Hitchcock Information Interpreted: non-clinical & clinical Primary Operator: Primary Operator Present (Annel) Allergies acetaminophen [Percocet] Adverse Reaction (Unknown, Verified 03/31/23 14:58) stomach pain oxycodone [Percocet] Adverse Reaction (Unknown, Verified 03/31/23 14:58) stomach pain wheat/egg Allergy (Unknown, Uncoded 03/31/23 14:58) throat irritation, stomach upset Is last menstrual period known: Yes Last menstrual period: 03/17/23 Post menopausal: No HPI HPI Comments History of Present Illness Details Presenting for annual exam. Complaining of vulvar irritation with no discharge or odor, and pelvic pressure no associated GI or symptoms no nausea or vomiting or fever Last Pap/HPV was negative in 12/22 Last Mammogram was done in 03/18 the results are still pending [facility] Medical History Bilateral nephrolithiasis Urinary, incontinence, stress female Urgency of micturition Renal stone IBS (irritable colon syndrome) GERD (gastroesophageal reflux disease) Irritable bowel Acid reflux Surgical History Hx of section History of esophagogastroduodenoscopy (EGD) Family History Sister Breast cancer Social History Household Members: Children Housing: Apartment Are you a primary day care assistant to a significant other at home: No Do you presently have visiting nurse or other home services: No Alcohol intake: never Patient Tobacco Use Status: Never used Tobacco service: No Current occupational status: employed 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 Gender identity: Female Female Reproductive History Menstrual Age of Menarche: 14 Duration of menses: 6-7 days Date of last menstrual period: 03/17/23 control method: pills Total pregnancies: 2 Full term: 2 Number of Living Children: 2 Date of last pap smear: 12/23/20 (negative) Review of Systems Const All systems reviewed & are unremarkable except as noted in HPI and below Card Reports as per HPI Resp Reports as per HPI GI Reports as per HPI and Reports no additional complaints Reports as per HPI Physical Exam Vital Signs: Last Vital Signs BP 110/58 L 03/31/23 14:49 BMI result Body Mass Index 28.7 Const General: cooperative, healthy appearing and comfortable Chest Chest palpation & inspection: normal inspection of the chest and normal palpation of entire chest wall Breast/axilla inspection: normal inspection of the breasts and normal inspection of the axillae Breast/axilla palpation: normal palpation of the breasts, normal palpation of the axillae and no axillary lymphadenopathy Resp Effort & Inspection: normal respiratory effort Auscultation: clear to auscultation bilaterally Percussion: percussion normal Cardio Palpation: normal PMI Rate: regular rate Rhythm: regular rhythm Heart sounds: no murmurs and no rubs Peripheral pulses: Peripheral pulses 2+ throughout GI Inspection: Yes normal to inspection Palpation (GI): Soft to palpation, nontender, no guarding, not rigid and No hepatosplenomegaly present Percussion: Yes normal to percussion Auscultation: normal bowel sounds Rectal Exam - Female: deferred General: Yes bladder normal to palpation External Female Exam: No lesion Speculum Exam - Vagina: normal appearance of the vagina, normal palpation, normal vaginal discharge and not erythematous Speculum Exam - Cervix: normal appearance of the cervix and normal palpation Bimanual exam- vagina & uterus: normal bimanual exam, normal palpation, uterine size normal, bladder normal to palpation, consistency normal and normal palpation Bimanual Exam- Adnexa, other: normal adnexae, no masses and no tenderness Assessment & Plan Assessment & Plan (1) Well woman exam with routine gynecological exam: Code(s): Z01.419 - Encounter for gynecological examination (general) (routine) without abnormal findings Plan: Cotesting not indicated this. Mammogram up-to-date. Counseled the patient about the recommended dietary allowance of 1000 mg of Calcium & 600 IU of vitamin D. The patient was instructed to perform monthly self-breast exams and to schedule an annual exam in a year; All questions answered and the patient verbalized understanding. Instructed the patient to schedule annual exam in a year (2) Pelvic pain: Code(s): R10.2 - Pelvic and perineal pain Plan: Urine dip and test done in the office were both negative. GC and chlamydia taken and pelvic ultrasound ordered. Discussed with the patient the differential diagnosis of pelvic pain including but not limited to adnexal, uterine masses, pelvic infections (PID), GI the (Irritable bowel syndrome, diverticulitis, others), musculoskeletal, myofascial pain abdominal wall , adhesions, endometriosis, psychological and others causes. Will check results and treat accordingly. All questions answered, the patient verbalized understanding. Instructed the patient to schedule follow-up appointment in 2 weeks (3) Vulvovaginitis: Code(s): N76.0 - Acute vaginitis Plan: GC/CT, Bacterial Vaginosis panel taken, Terazol 0.8% q.h.s. for 3 days was sent to the patient's pharmacy. The patient was instructed to call if symptoms don't improve in 48 hours. Orders: Orders US pelvic and transvaginal Today R10.2 - Pelvic and perineal pain Medications: New terconazole 0.8% 1 appful vaginal BEDTIME 20 grams 0RF 3 days Coding Level of Care Code Est Pt Prev Care 40-64y(95715) Diagnoses Well woman exam with routine gynecological exam Z01.419 Pelvic pain R10.2 Vulvovaginitis N76.0
[2023-03-31 14:49] VITALS: BP 110/58; BMI 28.7
== END 2023-03-31 15:23 | disposition home or self-care (01) ==
PROVIDERS: PCP Internal Medicine Geriatric Medicine; Visit Provider Obstetrics & Gynecology
DX: Z01.419 Encounter for gynecological examination (general) (routine) without abnormal findings (principal); R10.2 Pelvic and perineal pain; N76.0 Acute vaginitis
CPT/HCPCS: 99396

== ENCOUNTER 2023-04-25 14:23 | Outpatient (REF) | payer MEDICAID, SELFPAY ==
--- NOTE | ~2023-04-25 | US_ITS ---
EXAMINATION: US PELVIS CLINICAL INFORMATION: Pelvic pain, last menstrual period 03/17/2023. COMPARISON: 10/07/2021 TECHNIQUE: Ultrasound of the pelvis is performed using both transabdominal and transvaginal transducers along with Doppler. Transvaginal imaging is performed due to inadequate visualization transabdominally. FINDINGS: The uterus is anteverted, retroflexed, heterogeneous and measures 8.3 x 4.2 x 4.6 cm, volume 83.96 mL. Endometrial thickness is 1.2 cm. Visualization of endometrium limited due to uterine retropositioning and bowel gas. A 1.9 x 1.9 x 2.2 cm lesion in the uterine body is characteristic of a fibroid, previously 3.3 x 2.4 x 3.4 cm. Right ovary measures 2.7 x 1.5 x 1.2 cm, volume 2.5 mL, and is unremarkable. Left ovary measures 2.6 x 0.8 x 1.8 cm, volume 1.96 mL, and demonstrate echogenic focus characteristic of a calcification which was not identified on the prior exam. There is no significant free fluid. US/US pelvic and transvaginal IMPRESSION: 1. Fibroid uterus. 2. Endometrial thickness is 1.2 cm. Visualization of endometrium limited due to uterine retropositioning and bowel gas. 3. Left ovarian echogenic focus characteristic of a calcification which was not identified on the prior exam.
== END 2023-04-25 14:24 | disposition home or self-care (01) ==
LOC: HO.US 14:23
PROVIDERS: PCP Internal Medicine Geriatric Medicine; Visit Provider Obstetrics & Gynecology
DX: R10.2 Pelvic and perineal pain (principal)
CPT/HCPCS: 76830; 76856

== ENCOUNTER 2023-05-19 15:00 | Outpatient (RCR) | payer MEDICAID, SELFPAY | END 2023-05-19 15:48 | disposition home or self-care (01) | LOC: HO.PT 15:00 | PROVIDERS: PCP Internal Medicine Geriatric Medicine; Visit Provider Physician Assistant Medical | DX: R19.4 Change in bowel habit (principal) | CPT/HCPCS: 97110; 97112; 97140; 97161 ==

== ENCOUNTER 2023-05-23 14:52 | Outpatient (AMB) | payer MEDICAID, SELFPAY ==
--- NOTE | 2023-05-23 14:58 | MHC.OFFVIS ---
Intake Vital Signs 05/23/23 15:02 Height 4 ft 11 in Weight 141 lb 1.533 oz BMI 28.5 BP 110/70 Intake Visit Reasons: Ultrasound follow up Keyboarding Teacher Required: Yes Keyboarding Teacher Language: Office Machine Technician Name: Annel COMBS Information Interpreted: non-clinical & clinical Accompanied by: Self / Same As Patient Allergies acetaminophen [Percocet] Adverse Reaction (Unknown, Verified 05/23/23 15:03) stomach pain oxycodone [Percocet] Adverse Reaction (Unknown, Verified 05/23/23 15:03) stomach pain wheat/egg Allergy (Unknown, Uncoded 05/23/23 15:03) throat irritation, stomach upset Is last menstrual period known: Yes Last menstrual period: 05/06/23 HPI HPI Comments History of Present Illness Details Presenting for follow-up regarding pelvic pain/pressure. Urine dip and urine test done last visit were negative. GC/chlamydia were negative. Pelvic ultrasound showed the following: The uterus is anteverted, retroflexed, heterogeneous and measures 8.3 x 4.2 x 4.6 cm, volume 83.96 mL. Endometrial thickness is 1.2 cm. Visualization of endometrium limited due to uterine retropositioning and bowel gas. A 1.9 x 1.9 x 2.2 cm lesion in the uterine body is characteristic of a fibroid, previously 3.3 x 2.4 x 3.4 cm. Right ovary measures 2.7 x 1.5 x 1.2 cm, volume 2.5 mL, and is unremarkable. Left ovary measures 2.6 x 0.8 x 1.8 cm, volume 1.96 mL, and demonstrate echogenic focus characteristic of a calcification which was not identified on the prior exam. There is no significant free fluid. Since then patient's pain/pressure has resolved completely [facility] Medical History Bilateral nephrolithiasis Urinary, incontinence, stress female Urgency of micturition Renal stone IBS (irritable colon syndrome) GERD (gastroesophageal reflux disease) Irritable bowel Acid reflux Surgical History Hx of section History of esophagogastroduodenoscopy (EGD) Family History Sister Breast cancer Social History Household Members: Children Housing: Apartment Are you a primary vision care associate to a significant other at home: No Do you presently have visiting nurse or other home services: No Alcohol intake: never Patient Tobacco Use Status: Never used Tobacco service: No Current occupational status: employed 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 Gender identity: Female Female Reproductive History Menstrual Age of Menarche: 14 Date of last menstrual period: 05/06/23 Review of Systems Const All systems reviewed & are unremarkable except as noted in HPI and below Reports as per HPI and Reports no additional complaints GI Reports no additional complaints Reports no additional complaints Physical Exam Vital Signs: Last Vital Signs BP 110/70 05/23/23 15:02 BMI result Body Mass Index 28.5 Assessment & Plan Assessment & Plan (1) Pelvic pain: Code(s): R10.2 - Pelvic and perineal pain Plan: Discussed with the patient the workup done for pelvic pain including negative urine test, urine dip an ultrasound except for calcification of the ovary. Instructions given to patient to call in case pelvic pain/pressure recurs. All questions answered, the patient verbalized understanding (2) Calcification of ovary: Code(s): N83.8 - Other noninflammatory disorders of ovary, fallopian tube and broad ligament Plan: Discussed with the patient the finding on ultrasound showing calcification of the ovary, discussed with the patient the differential diagnosis , recommended repeat ultrasound in 3 months. Will check the results and treat accordingly. Instructions given the patient to call in case pelvic pain persist or get worse enter schedule 3 months ultrasound follow-up appointment (3) Uterine myoma: Code(s): D25.9 - Leiomyoma of uterus, unspecified Plan: Discussed with the patient the findings on pelvic ultrasound & the risk of myosarcoma; discussed with the patient the options of treatment including expectant management versus hysterectomy; the pros and cons, risks benefits of each approach were discussed with the patient including the fact that in cases of myosarcoma, surgical treatment can lead to early diagnosis and positively affects the prognosis; after further discussion, the patient decided to proceed with expectant management. Will repeat pelvic ultrasound periodically. Instructions given to patient to call in case any of the following occurs: pressure symptoms, abnormal uterine bleeding, pelvic pain; and to schedule a future office follow-up appointment for reassessment and to order a repeat ultrasound . All questions answered, the patient verbalized understanding and agreed with the plan . Orders: Orders US pelvic and transvaginal 3 Months N83.8 - Other noninflammatory disorders of ovary, fallopian tube and broad ligament Coding Level of Care Code Est Pt Level 3 (63623) Diagnoses Pelvic pain R10.2 Calcification of ovary N83.8 Uterine myoma D25.9
[2023-05-23 15:02] VITALS: BP 110/70; BMI 28.5
== END 2023-05-23 15:14 | disposition home or self-care (01) ==
PROVIDERS: PCP Internal Medicine Geriatric Medicine; Visit Provider Obstetrics & Gynecology
DX: R10.2 Pelvic and perineal pain (principal); N83.8 Other noninflammatory disorders of ovary, fallopian tube and broad ligament; D25.9 Leiomyoma of uterus, unspecified
CPT/HCPCS: 99213

== ENCOUNTER → 2023-05-23 14:52 | Outpatient (BNVA) | payer MEDICAID, SELFPAY | PROVIDERS: PCP Internal Medicine Geriatric Medicine; Visit Provider Obstetrics & Gynecology | DX: R10.2 Pelvic and perineal pain (principal); N83.8 Other noninflammatory disorders of ovary, fallopian tube and broad ligament; D25.9 Leiomyoma of uterus, unspecified | CPT/HCPCS: 99212 ==

== ENCOUNTER 2023-08-23 14:49 | Outpatient (REF) | payer MEDICAID, SELFPAY ==
--- NOTE | ~2023-08-23 | US_ITS ---
EXAMINATION: US PELVIS CLINICAL INFORMATION: Calcification of ovary, last menstrual period 5 days ago, vaginal bleeding, still spotting today. COMPARISON: CT scan of April 2023. TECHNIQUE: Ultrasound of the pelvis is performed using both transabdominal and transvaginal transducers along with Doppler. Transvaginal imaging is performed due to inadequate visualization transabdominally. FINDINGS: The uterus measures 8.0 x 3.6 x 4.3 cm. A 1.8 x 2.2 x 1.8 cm fibroid previously measured 1.9 x 1.9 x 2.2 cm. Endometrial thickness is 12 mm. No significant free fluid. Right ovary measures 2.3 x 1.4 x 1.4 cm, volume 2.4 mL. Right ovary is grossly unremarkable, although visualization is limited due to bowel gas. Left ovary measures 2.2 x 1.6 x 1.5 cm, volume 2.8 mL. No definitive left ovarian calcifications are seen, although visualization is limited due to bowel gas. Prominent vessels in the left adnexal region raise the possibility of pelvic congestion syndrome. US/US pelvic and transvaginal IMPRESSION: 1. A 2.2 cm uterine fibroid. 2. Endometrial thickness is 12 mm. 3. No definitive left ovarian calcifications are seen, although visualization is limited due to bowel gas. 4. Prominent vessels in the left adnexal region raise the possibility of pelvic congestion syndrome.
== END 2023-08-23 14:50 | disposition home or self-care (01) ==
LOC: HO.US 14:49
PROVIDERS: PCP Internal Medicine Geriatric Medicine; Visit Provider Obstetrics & Gynecology
DX: N83.8 Other noninflammatory disorders of ovary, fallopian tube and broad ligament (principal)
CPT/HCPCS: 76830; 76856

== ENCOUNTER 2023-09-05 09:20 | Outpatient (AMB) | payer MEDICAID, SELFPAY ==
[2023-09-05 09:28] VITALS: BP 112/70; BMI 28.5
--- NOTE | 2023-09-05 09:28 | MHC.OFFVIS ---
Intake Vital Signs 09/05/23 09:28 Height 4 ft 11 in Weight 141 lb BMI 28.5 BP 112/70 Intake Visit Reasons: US follow up Convenience Store Clerk Required: Yes Convenience Store Clerk Language: Registered Land Surveyor Name: Annel Hitchcock Information Interpreted: non-clinical & clinical Parts Counter Sales Person: Parts Counter Sales Person Present (Annel) Allergies acetaminophen [Percocet] Adverse Reaction (Unknown, Verified 09/05/23 09:34) stomach pain oxycodone [Percocet] Adverse Reaction (Unknown, Verified 09/05/23 09:34) stomach pain wheat/egg Allergy (Unknown, Uncoded 09/05/23 09:34) throat irritation, stomach upset Post menopausal: No Patient : No HPI HPI Comments History of Present Illness Details Presenting for ultrasound follow-up complaining of irregular menstrual cycles. Pelvic ultrasound done recently showed the following: IMPRESSION: 1. A 2.2 cm uterine fibroid. 2. Endometrial thickness is 12 mm. 3. No definitive left ovarian calcifications are seen, although visualization is limited due to bowel gas. 4. Prominent vessels in the left adnexal region raise the possibility of pelvic congestion syndrome. Last co testing was [place] [id number] negative PFSH Medical History Bilateral nephrolithiasis Urinary, incontinence, stress female Urgency of micturition Renal stone IBS (irritable colon syndrome) GERD (gastroesophageal reflux disease) Irritable bowel Acid reflux Surgical History Hx of section History of esophagogastroduodenoscopy (EGD) Family History Sister Breast cancer Social History Household Members: Children Housing: Apartment Are you a primary assisted living care manager to a significant other at home: No Do you presently have visiting nurse or other home services: No Alcohol intake: never Patient Tobacco Use Status: Never used Tobacco Patient : No service: No Current occupational status: employed 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 Gender identity: Female Female Reproductive History Menstrual Age of Menarche: 14 control method: pills Date of last pap smear: 12/23/20 (negative) Review of Systems Const All systems reviewed & are unremarkable except as noted in HPI and below Physical Exam Vital Signs: Last Vital Signs BP 112/70 09/05/23 09:28 BMI result Body Mass Index 28.5 General: Yes no CVA tenderness External Female Exam: normal external appearance and normal appearance of the urethra Speculum Exam - Vagina: normal appearance of the vagina, normal palpation, no lesions and no masses Speculum Exam - Cervix: normal appearance of the cervix, normal palpation, no lesions, no masses and nontender Bimanual exam- vagina & uterus: normal bimanual exam, normal palpation, uterine size normal, normal palpation, uterine shape normal, No Cervical tenderness present and non-tender Bimanual Exam- Adnexa, other: normal adnexae Back/Spine/Pelvis Back: no CVA tenderness Assessment & Plan Assessment & Plan (1) Uterine myoma: Code(s): D25.9 - Leiomyoma of uterus, unspecified Plan: Insert plan myoma options of treat (2) Abnormal uterine bleeding: Comment: With myoma Code(s): N93.9 - Abnormal uterine and vaginal bleeding, unspecified Plan: Co testing up-to-date, GC and chlamydia taken CBC, TSH, prolactin, HCG, . Discussed with the patient the different causes of abnormal bleeding including thyroid disorders, uterine and ovarian pathology, endometrial hyperplasia, carcinoma and other potential causes. Discussed with the patient the work up including CBC (to r/o anemia), TSH, pelvic Ultrasound, endometrial biopsy to r/o endometrial pathology. All questions answered and the patient verbalized understanding. Instructed the patient to schedule an appointment for an endometrial biopsy in 2 weeks. (3) Calcification of ovary: Code(s): N83.8 - Other noninflammatory disorders of ovary, fallopian tube and broad ligament Plan: Discussed with the patient ultrasound findings showing the previously identified ovarian calcification has resolved. The patient was instructed to call if symptoms recur. All questions were answered the patient verbalized understanding. Orders: Orders CT NG by PCR Today N93.9 - Abnormal uterine and vaginal bleeding, unspecified Complete Blood Count no Diff Today N93.9 - Abnormal uterine and vaginal bleeding, unspecified TSH reflex Free T4 Today N93.9 - Abnormal uterine and vaginal bleeding, unspecified Prolactin Today N93.9 - Abnormal uterine and vaginal bleeding, unspecified HCG Quantitative Today N93.9 - Abnormal uterine and vaginal bleeding, unspecified Coding Level of Care Code Est Pt Level 3 (65865) Diagnoses Uterine myoma D25.9 Abnormal uterine bleeding N93.9 Calcification of ovary N83.8
== END 2023-09-05 10:21 | disposition home or self-care (01) ==
LOC: HO.HWS 09:22
PROVIDERS: PCP Internal Medicine Geriatric Medicine; Visit Provider Obstetrics & Gynecology
DX: D25.9 Leiomyoma of uterus, unspecified (principal); N93.9 Abnormal uterine and vaginal bleeding, unspecified; N83.8 Other noninflammatory disorders of ovary, fallopian tube and broad ligament
CPT/HCPCS: 99213

== ENCOUNTER 2023-09-05 09:20 | Outpatient (REF) | payer MEDICAID, SELFPAY | END 2023-09-05 09:21 | disposition home or self-care (01) | LOC: HO.LNP 09:20 | PROVIDERS: PCP Internal Medicine Geriatric Medicine; Visit Provider Obstetrics & Gynecology | DX: D25.9 Leiomyoma of uterus, unspecified (principal); N93.9 Abnormal uterine and vaginal bleeding, unspecified; N83.8 Other noninflammatory disorders of ovary, fallopian tube and broad ligament | CPT/HCPCS: 0353U; 36415; 84146; 84443; 84702; 85027; 99212 ==

== ENCOUNTER 2023-09-05 10:32 | Outpatient (REF) | payer MEDICAID, SELFPAY ==
[2023-09-05 12:06] LABS: Hematocrit 42.3 % (37.0-47.0); Hemoglobin 13.8 g/dl (12.0-16.0); Mean Corpuscular HGB Conc 32.6 g/dl (31.0-35.0); Mean Corpuscular Hemoglobin 26.5 pg (27.0-33.0); Mean Corpuscular Volume 81.2 fL (80.0-98.0); Mean Platelet Volume 12.2 fL (9.4-12.3); Platelet Count 232 X10*3/uL (160-400); Red Blood Count 5.21 X10*6/uL (4.20-5.50); White Blood Count 7.9 X10*3/uL (4.8-10.8)
[2023-09-05 13:13] LABS: HCG Quantitative < 2 mIU/mL; TSH reflex Free T4 1.88 uIU/mL (0.32-4.0)
[2023-09-05 13:35] LABS: CT PCR NOT DETECTED (Not Detect.); NG PCR NOT DETECTED (Not Detect.)
[2023-09-06 14:49] LABS: Prolactin 6.2 ng/mL
== END 2023-09-05 10:33 | disposition home or self-care (01) ==
LOC: HO.LAB 10:32
PROVIDERS: PCP Internal Medicine Geriatric Medicine; Visit Provider Obstetrics & Gynecology
DX: N93.9 Abnormal uterine and vaginal bleeding, unspecified (principal)
CPT/HCPCS: 0353U; 36415; 84146; 84443; 84702; 85027

== ENCOUNTER 2023-09-29 07:22 | Outpatient (REF) | payer MEDICAID, SELFPAY | END 2023-09-29 07:23 | disposition home or self-care (01) | LOC: HO.LNP 07:22 | PROVIDERS: PCP Internal Medicine Geriatric Medicine; Visit Provider Obstetrics & Gynecology | DX: N64.3 Galactorrhea not associated with childbirth (principal); N93.9 Abnormal uterine and vaginal bleeding, unspecified | CPT/HCPCS: 58100; 81025; 88305; 99212 ==

== ENCOUNTER 2023-09-29 07:22 | Outpatient (AMB) | payer MEDICAID, SELFPAY ==
--- NOTE | 2023-09-29 07:35 | A.OFFVIS_ITS ---
Intake Vital Signs 09/29/23 07:38 Height 4 ft 11 in Weight 138 lb 14.259 oz BMI 28.0 BP 92/60 Intake Visit Reasons: EMB Research Executive Required: Yes Research Executive Language: Air Route Traffic Controller Name: Annel COMBS Information Interpreted: non-clinical & clinical Furniture Assembler: Furniture Assembler Present (Annel COMBS) Accompanied by: Self / Same As Patient Allergies acetaminophen [Percocet] Adverse Reaction (Unknown, Verified 09/29/23 07:47) stomach pain oxycodone [Percocet] Adverse Reaction (Unknown, Verified 09/29/23 07:47) stomach pain wheat/egg Allergy (Unknown, Uncoded 09/29/23 07:47) throat irritation, stomach upset Is last menstrual period known: Yes Last menstrual period: 09/05/23 HPI HPI Comments History of Present Illness Details Presenting for endometrial biopsy complaining of a right nipple whitish discharge, not bloody and not spontaneous. Last TSH/prolactin in 09/24 were within normal. Last screening mammogram in 03/26 was within normal [facility] Medical History Bilateral nephrolithiasis Urinary, incontinence, stress female Urgency of micturition Renal stone IBS (irritable colon syndrome) GERD (gastroesophageal reflux disease) Irritable bowel Acid reflux Surgical History Hx of section History of esophagogastroduodenoscopy (EGD) Family History Sister Breast cancer Social History Household Members: Children Housing: Apartment Are you a primary intensive care anaesthetist to a significant other at home: No Do you presently have visiting nurse or other home services: No Alcohol intake: never Patient Tobacco Use Status: Never used Tobacco service: No Current occupational status: employed 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 Gender identity: Female Female Reproductive History Menstrual Age of Menarche: 14 Date of last menstrual period: 09/05/23 Physical Exam Vital Signs: Last Vital Signs BP 92/60 09/29/23 07:38 BMI result Body Mass Index 28.0 Chest Breast/axilla inspection: normal inspection of the breasts Breast/axilla palpation: normal palpation of the breasts and normal palpation of the axillae Office Procedures Endometrial Biopsy Details: The patient was counseled regarding the indication and benefits of endometrial sampling to rule out endometrial pathology including not limited to endometrial hyperplasia or endometrial cancer and others; The alternatives (Either do nothing vs. hysteroscopy D&C) & the risks were discussed with the patient including but not limited: pain, uterine perforation, bleeding, infection, possible injury to bladder, bowel, ureter, possible need for blood transfusion with all its possible risks. The patient verbalized understanding all questions answered and signed consent. Urine test done in the office was negative The patient was placed into the dorsal lithotomy position; a speculum was inserted in the vagina. Using aseptic technique for the procedure, the cervix was cleansed with Betadine. The anterior lip of the cervix was grasped with a single tooth tenaculum. The uterus was sounded to 7 cm with a 4 mm Pipelle was used. Tissues samples were obtained and placed in formalin, in a patient labeled container and sent to the pathology department. At the end of the procedure, there was minimal bleeding noted The patient tolerated the procedure well and was discharged in good condition with the following instructions: Nothing in the vagina until the bleeding stops. No sex until the bleeding stops, to call if any of the following occurs: fever (>100.4), flu-like symptoms, abdominal pain, heavy bleeding, four smelling va ginal discharge. The patient was instructed to schedule a Follow up appointment in 2 weeks to discuss pathology results of the biopsy and treatment options. This note was generated with a voice recognition program. Some errors may have been overlooked during the review of this note. Sometimes these errors may affect the content or meaning of a given sentence. [id number] Biopsy Results AMB Test Urine AMB Test Urine Negative Last Edit by Annel Hitchcock CMA on 07:49 Results Reviewed Results Reviewed: Laboratory Last Values Tst Clinic Negative 09/29/23 07:49 Assessment & Plan Assessment & Plan (1) Galactorrhea: Comment: Right Code(s): N64.3 - Galactorrhea not associated with childbirth Plan: Repeat TSH/prolactin hCG, and order diagnostic right mammogram and breast ultrasound. Instructions given the patient to schedule a 2 week follow-up appointment (2) Abnormal uterine bleeding: Comment: With myoma Code(s): N93.9 - Abnormal uterine and vaginal bleeding, unspecified Plan: EMB done, see procedure note Orders: Orders AMB HCG Urine Test Today Z32.02 - Encounter for test, result negative Thyroid Stimulating Hormone Today N64.3 - Galactorrhea not associated with childbirth US breast RT complete Today N64.3 - Galactorrhea not associated with childbirth AMB Endometrial Biopsy Today N93.9 - Abnormal uterine and vaginal bleeding, unspecified HCG Quantitative Today N64.3 - Galactorrhea not associated with childbirth Prolactin Today N64.3 - Galactorrhea not associated with childbirth MM tomosynthesis diagnostic RT Today N64.3 - Galactorrhea not associated with childbirth Coding Level of Care Code Est Pt Level 3 (45273) Procedure Only Diagnoses Galactorrhea N64.3 Abnormal uterine bleeding N93.9 CPT Codes Endometrial Biopsy - CPT: 69362-[id number] Biopsy ([id number])
[2023-09-29 07:38] VITALS: BP 92/60; BMI 28.0
== END 2023-09-29 08:04 | disposition home or self-care (01) ==
PROVIDERS: PCP Internal Medicine Geriatric Medicine; Visit Provider Obstetrics & Gynecology
DX: N64.3 Galactorrhea not associated with childbirth (principal); N93.9 Abnormal uterine and vaginal bleeding, unspecified; Z32.02 Encounter for pregnancy test, result negative
CPT/HCPCS: 58100; 99213

== ENCOUNTER → 2023-09-30 08:30 | Outpatient (BNV) | payer MEDICAID, SELFPAY | PROVIDERS: PCP Internal Medicine Geriatric Medicine; Visit Provider Radiology Diagnostic Radiology | DX: N64.52 Nipple discharge (principal) | CPT/HCPCS: 76642; 77061; 77065 ==

== ENCOUNTER 2023-09-30 08:34 | Outpatient (REF) | payer MEDICAID, SELFPAY ==
--- NOTE | ~2023-09-30 | US_ITS ---
EXAMINATION: MM DIAGNOSTIC DIGITAL BREAST TOMOSYNTHESIS, RIGHT US BREAST LIMITED, RIGHT MAMMOGRAPHY: CLINICAL INFORMATION: 43-year-old female, history of breast cancer in sister in age 40 is, complaining of right nipple itchiness which is mildly relieved by manual expression of a white discharge from the nipple. Patient states no rash on the nipple but symptoms continue. No history of bloody discharge. Patient states several episodes over past few weeks. COMPARISON: Mammography: 03/18/2023, 11/05/2021 (baseline exam) TECHNIQUE: Digital right breast tomosynthesis is performed in both the craniocaudal and mediolateral oblique views along with computer-aided detection (CAD). Synthesized 2D images are generated from the tomosynthesis. In addition, full-field 3-D right ML view was obtained. FINDINGS: The breasts are heterogeneously dense, which may obscure small masses (ACR BI-RADS breast composition Category c). There are no suspicious masses, suspicious grouped calcifications, or areas of architectural distortion in either breast. The parenchymal pattern is stable from prior exams. No mammographic abnormality is noted involving the nipple or retroareolar region. ULTRASOUND: CLINICAL INFORMATION: As detailed above. COMPARISON: No prior ultrasound. TECHNIQUE: Targeted sonographic evaluation was performed using a high frequency linear transducer. Attention was focused on the right retroareolar region. Selected archived documentation. FINDINGS: RIGHT BREAST: -Imaging of the retroareolar region and nipple demonstrate no evidence of nipple thickening or edema. No significant masses, cystic abnormalities, or abnormal shadowing identified. Minimal duct ectasia noted without filling defect, or debris. No discrete intraductal mass is evident. No sonographic abnormality is present to explain the patient's symptomatology or galactorrhea. US/US breast RT limited mamm only IMPRESSION: There are no findings in the right breast suspicious for malignancy. There is no mammographic or sonographic abnormality in the right nipple or retroareolar region to explain the patient's symptomatology. Recommend clinical management and follow-up. Otherwise, recommend the patient resume routine annual screening mammography to include both breasts. OVERALL ASSESSMENT: Mammography: BI-RADS 1 - Negative Ultrasound: BI-RADS 1 - Negative RECOMMENDATION: 1. Patient should be managed based on the clinical impression. 2. Otherwise, routine annual screening mammography. This patient's information was entered into a reminder system with a target due date for their next mammogram.
== END 2023-09-30 08:35 | disposition home or self-care (01) ==
LOC: HO.MAMMO 08:34
PROVIDERS: PCP Internal Medicine Geriatric Medicine; Visit Provider Obstetrics & Gynecology
DX: N64.3 Galactorrhea not associated with childbirth (principal)
CPT/HCPCS: 76642; 77061; 77065

== ENCOUNTER 2023-10-03 10:48 | Outpatient (REF) | payer MEDICAID, SELFPAY ==
[2023-10-03 12:19] LABS: HCG Quantitative < 2 mIU/mL; Thyroid Stimulating Hormone 1.72 uIU/mL (0.32-4.0)
[2023-10-04 08:14] LABS: Prolactin 10.2 ng/mL
== END 2023-10-03 10:49 | disposition home or self-care (01) ==
LOC: HO.LAB 10:48
PROVIDERS: PCP Internal Medicine Geriatric Medicine; Visit Provider Obstetrics & Gynecology
DX: N64.3 Galactorrhea not associated with childbirth (principal)
CPT/HCPCS: 36415; 84146; 84443; 84702

== ENCOUNTER 2023-12-09 11:04 | Outpatient (REF) | payer MEDICAID, SELFPAY ==
[2023-12-09 13:05] LABS: MANUAL DIFF FLAG NO
[2023-12-09 13:07] LABS: Basophils Absolute Auto 0.1 X10*3/uL (0.0-0.2); Eosinophils Percent Auto 0.6 % (0-4); Hemoglobin 13.7 g/dl (12.0-16.0); Imm Gran Abs Auto 0.01 X10*3/uL (0.00-0.03); Imm Gran Pct Auto 0.2 % (0.0-0.4); Lymphocytes Absolute Auto 1.5 X10*3/uL (1.2-4.9); Lymphocytes Percent Auto 30.4 % (20-40); Mean Corpuscular HGB Conc 32.6 g/dl (31.0-35.0); Mean Corpuscular Hemoglobin 26.7 pg (27.0-33.0); Mean Corpuscular Volume 81.7 fL (80.0-98.0); Mean Platelet Volume 12.1 fL (9.4-12.3); Monocytes Absolute Auto 0.4 X10*3/uL (0.1-1.2); Monocytes Percent Auto 6.9 % (2-11); Neutrophils Absolute Auto 3.1 x10*3/uL (2.0-8.3); Neutrophils Percent Auto 60.9 % (45-73); Platelet Count 187 X10*3/uL (160-400); Red Blood Count 5.14 X10*6/uL (4.20-5.50); Red Cell Distribution Width 13.4 % (11.0-16.0); White Blood Count 5.1 X10*3/uL (4.8-10.8)
[2023-12-09 13:20] LABS: Alanine Aminotransferase 27 U/L (0-31); Alkaline Phosphatase 70 U/L (39-117); Anion Gap 9 (12-20); Aspartate Amino Transferase 24 U/L (5-31); Bilirubin Total 0.4 mg/dL (0.0-1.0); Blood Urea Nitrogen 9 mg/dL (9-16); Calcium 9.3 mg/dL (8.4-10.2); Carbon Dioxide 29 mmol/L (22-29); Chloride 105 mmol/L (96-108); Cholesterol 169 mg/dL (<200); Estimated Glomerular Filt Rate > 60; Glucose Random 78 mg/dL (60-115); HDL Cholesterol 65 mg/dL (>40); LDL Cholesterol Calculated 94 mg/dL (<100); Potassium 3.9 mmol/L (3.3-5.1); Sodium 139 mmol/L (135-145); Total Protein 7.2 g/dL (6.5-8.0); Triglycerides 51 mg/dL (<150)
== END 2023-12-09 11:05 | disposition home or self-care (01) ==
LOC: HO.HHCL 11:04
PROVIDERS: Visit Provider Internal Medicine Geriatric Medicine
DX: E78.5 Hyperlipidemia, unspecified (principal); Z86.2 Personal history of diseases of the blood and blood-forming organs and certain disorders involving the immune mechanism
CPT/HCPCS: 36415; 80053; 80061; 85025

== ENCOUNTER 2023-12-13 11:50 | Outpatient (AMB) | payer MEDICAID, SELFPAY ==
--- NOTE | 2023-12-13 11:52 | A.OFFVIS_ITS ---
Vital Signs 12/13/23 11:54 Height 4 ft 11 in Weight 138 lb 14.259 oz BMI 28.0 BP 102/60 Intake Visit Reasons: EMB follow up/DO NOT RS Farm Equipment Service Technician Required: Yes Farm Equipment Service Technician Language: Director Clinical Information Services Name: Annel COMBS Information Interpreted: non-clinical & clinical Accompanied by: Self / Same As Patient Allergies acetaminophen [Percocet] Adverse Reaction (Unknown, Verified 12/13/23 11:55) stomach pain oxycodone [Percocet] Adverse Reaction (Unknown, Verified 12/13/23 11:55) stomach pain wheat/egg Allergy (Unknown, Uncoded 12/13/23 11:55) throat irritation, stomach upset Is last menstrual period known: Yes Last menstrual period: 11/25/23 HPI Comments Details: The patient is presenting for follow-up to discuss the results of her abnormal uterine bleeding workup and options of treatment. The following workup was done.: H&H= 13.7/42 TSH, prolactin, hCG, GC and chlamydia were negative. Endometrial biopsy pathology showed early secretory endometrium with no evidence of hyperplasia and/or malignancy. Co testing was done in 12/22 was negative. Mammogram was BI-RADS 1 Pelvic ultrasound showed the following: IMPRESSION: 1. A 2.2 cm uterine fibroid. 2. Endometrial thickness is 12 mm. 3. No definitive left ovarian calcifications are seen, although visualization is limited due to bowel gas. 4. Prominent vessels in the left adnexal region raise the possibility of pelvic congestion syndrome. [facility] Medical History Bilateral nephrolithiasis Urinary, incontinence, stress female Urgency of micturition Renal stone IBS (irritable colon syndrome) GERD (gastroesophageal reflux disease) Irritable bowel Acid reflux Surgical History Hx of section History of esophagogastroduodenoscopy (EGD) Family History Sister Breast cancer Social History Household Members: Children Housing: Apartment Are you a primary healthcare management consultant to a significant other at home: No Do you presently have visiting nurse or other home services: No Alcohol intake: never Patient Tobacco Use Status: Never used Tobacco service: No Current occupational status: employed 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 Gender identity: Female Female Reproductive History Menstrual Age of Menarche: 14 Date of last menstrual period: 11/25/23 Review of Systems Const All systems reviewed & are unremarkable except as noted in HPI and below Reports as per HPI and Reports no additional complaints GI Reports no additional complaints Reports no additional complaints Physical Exam Vital Signs: BMI result Body Mass Index 28.0 Assessment & Plan Assessment & Plan (1) Uterine myoma: Code(s): D25.9 - Leiomyoma of uterus, unspecified Category: Medical Plan: Discussed with the patient the findings on pelvic ultrasound & the risk of myosarcoma; discussed with the patient the options of treatment including expectant management versus hysterectomy; the pros and cons, risks benefits of each approach were discussed with the patient including the fact that in cases of myosarcoma, surgical treatment can lead to early diagnosis and positively affects the prognosis; after further discussion, the patient decided to proceed with expectant management. Will repeat pelvic ultrasound periodically. Instructions given to patient to call in case any of the following occurs: pressure symptoms, abnormal uterine bleeding, pelvic pain; and to schedule an 11 months ultrasound and a follow-up appointment . All questions answered, the patient verbalized understanding and agreed with the plan . (2) Abnormal uterine bleeding: Comment: With myoma Code(s): N93.9 - Abnormal uterine and vaginal bleeding, unspecified Category: Medical Plan: Discussed with the patient the results of the work up done and options of treatment including Lysteda, control pills, Mirena IUD, endometrial ablation and hysterectomy. All pros, cons, risks and benefits if each option was discussed with the patient and the patient decided to go ahead with Mirena IUD so a more detailed discussion about it was conducted including mechanism of action, risks (uterine perforation, infection, injury to bladder, bowel, displacement, and others) benefits (hypo menorrhea, amenorrhea, ...). GC/CT were taken and the patient was instructed to schedule Mirena IUD insertion on day 1- 5 of next cycle . All questions answered, the patient verbalized understanding Orders: Orders US pelvic and transvaginal 11 Months D25.9 - Leiomyoma of uterus, unspecified Coding Level of Care Code Est Pt Level 3 (54571) Diagnoses Uterine myoma D25.9 Abnormal uterine bleeding N93.9
[2023-12-13 11:54] VITALS: BP 102/60; BMI 28.0
== END 2023-12-13 12:09 | disposition home or self-care (01) ==
LOC: HO.HWS 11:50
PROVIDERS: PCP Internal Medicine Geriatric Medicine; Visit Provider Obstetrics & Gynecology
DX: D25.9 Leiomyoma of uterus, unspecified (principal); N93.9 Abnormal uterine and vaginal bleeding, unspecified
CPT/HCPCS: 99213

== ENCOUNTER → 2023-12-13 11:50 | Outpatient (BNVA) | payer MEDICAID, SELFPAY | PROVIDERS: PCP Internal Medicine Geriatric Medicine; Visit Provider Obstetrics & Gynecology | DX: N93.9 Abnormal uterine and vaginal bleeding, unspecified (principal); D25.9 Leiomyoma of uterus, unspecified | CPT/HCPCS: 99212 ==

== ENCOUNTER 2024-01-10 13:08 | Outpatient (AMB) | payer MEDICAID, SELFPAY ==
--- NOTE | 2024-01-10 13:16 | MHC.OFFVIS ---
Vital Signs 01/10/24 13:21 Height 4 ft 11 in Weight 138 lb 14.259 oz BMI 28.0 BP 112/66 Intake Visit Reasons: IUD Insertion Vice President Of Operations Required: Yes Vice President Of Operations Language: Intelligence Operations Specialist Services: Vice President Of Operations Present Vice President Of Operations Name: Annel COMBS Information Interpreted: non-clinical & clinical Apron Operator: Apron Operator Present (Annel COMBS) Accompanied by: Self / Same As Patient Allergies acetaminophen [Percocet] Adverse Reaction (Unknown, Verified 01/10/24 13:37) stomach pain oxycodone [Percocet] Adverse Reaction (Unknown, Verified 01/10/24 13:37) stomach pain wheat/egg Allergy (Unknown, Uncoded 01/10/24 13:37) throat irritation, stomach upset Is last menstrual period known: Yes Last menstrual period: 01/08/24 HPI Comments Details: Presenting for Mirena IUD insertion [facility] Medical History Bilateral nephrolithiasis Urinary, incontinence, stress female Urgency of micturition Renal stone IBS (irritable colon syndrome) GERD (gastroesophageal reflux disease) Irritable bowel Acid reflux Surgical History Hx of section History of esophagogastroduodenoscopy (EGD) Family History Sister Breast cancer Social History Household Members: Children Housing: Apartment Are you a primary patient centered care specialist to a significant other at home: No Do you presently have visiting nurse or other home services: No Alcohol intake: never Patient Tobacco Use Status: Never used Tobacco service: No Current occupational status: employed 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 Gender identity: Female Female Reproductive History Menstrual Age of Menarche: 14 Date of last menstrual period: 01/08/24 control method: progestin IUCD Review of Systems Const All systems reviewed & are unremarkable except as noted in HPI and below Reports as per HPI and Reports no additional complaints GI Reports no additional complaints Reports no additional complaints Physical Exam Vital Signs: Last Vital Signs BP 112/66 01/10/24 13:21 BMI result Body Mass Index 28.0 Office Procedures IUD Insert/Removal Details Details: The patient is presenting for Mirena IUD insertion Urine test was done in the office and was negative; All the contraindications were excluded. The following possible complications were discussed with the patient: Intrauterine , Ectopic , Sepsis, Pelvic Infection, Irregular Bleeding and Amenorrhea, Perforation, Expulsion, Ovarian Cysts, Breast Cancer, The following adverse effects were discussed with the patient: alteration of menstrual bleeding pattern, including: unscheduled uterine bleeding decreased uterine bleeding increased scheduled uterine bleeding female genital tract bleeding ,amenorrhea , genital discharge , vulvovaginitis , breast pain , benign ovarian cyst and associated complications , dysmenorrhea , Gastrointestinal disorders abdominal/pelvic pain, headache/migraine , back pain , acne , depression Alternative options were discussed with the patient including but not limited: control pills, patch, NuvaRing, Depo-medroxyprogesterone acetate, Nexplanon, copper IUD, sterilization, vasectomy, others The procedure was explained in detail to patient , at the end patient signed the informed consent obtained. A no touch technique was used throughout the procedure. A speculum was placed into vagina and cervix was cleaned with betadine). A tenaculum was placed. A plastic sound was advanced through the external and internal os until it reached the fundus of the uterus, the depth was 8 cm. The sound was then withdrawn. The IUD was loaded in a sterile manner and advanced into position. The string was visualized and cut to 3 cm. Tenaculum site hemostatic. All instruments removed from vagina. Patient tolerated the procedure well. NO complications were noted. Patient was instructed to call for fever over 100.4, significant pain unrelieved by Motrin, IUD expulsion, heavy bleeding, or abnormal discharge. In addition, the following clinical considerations were discussed with the patient to call for removal: A stroke or heart attack ,Very severe or migraine headaches ,Unexplained fever ,Yellowing of the skin or whites of the eyes, as these may be signs of serious liver problems , or suspected , Pelvic pain or pain during sex ,HIV positive seroconversion in herself or her partner , Possible exposure to sexually transmitted infections Unusual vaginal discharge or genital sores , severe vaginal bleeding or bleeding that lasts a long time, or if she misses a menstrual period, Inability to feel Mirena's threads Counseled the patient that the IUD does not protect against STI's, recommended use of condoms for the first 7 days post insertion and explained to the patient that condoms are recommended for patients at risk for sexually transmitted infections. Informed the patient that Mirena IUD is FDA approved for 8 years for contraception for 5 years for the treatment of heavy menses Instructed the patient to schedule a Follow up appointment in 4 to 6 weeks following insertion. This note was generated with a voice recognition program. Some errors may have been overlooked during the review of this note. Sometimes these errors may affect the content or meaning of a given sentence. [id number] Insertion Procedure code (CPT) selection complete Office Meds Mirena 21 mcg/24 hr (up to 8 years) 52 mg intrauterine device Performing Provider: Del Amador MD Performing Location: [facility] Documented (not given) by: Del Amador MD on 01/10/24 13:54 Dose Route Admin Location Dispensed Lot Number Expiration Date NDC Division Commander 1 device intrauterine ea Results AMB Test Urine AMB Test Urine Negative Last Edit by Annel Hitchcock CMA on 01/10/24 13:39 Results Reviewed Results Reviewed: Laboratory Last Values [facility]st Clinic Negative 01/10/24 13:39 Assessment & Plan Assessment & Plan (1) Abnormal uterine bleeding: Comment: With myoma Code(s): N93.9 - Abnormal uterine and vaginal bleeding, unspecified Category: Medical Plan: Mirena IUD inserted, see procedure note Orders: Orders AMB IUD Insertion/Removal - Practice Supplied Today N93.9 - Abnormal uterine and vaginal bleeding, unspecified AMB HCG Urine Test Today Z32.02 - Encounter for test, result negative Medications: New Mirena (levonorgestrel) 1 device intrauterine ONCE 1 ea 0RF AUB NS N93.9 - Abnormal uterine and vaginal bleeding, unspecified Coding Level of Care Code Procedure Only Diagnoses Abnormal uterine bleeding N93.9 CPT Codes Details - CPT: 67677-BGY Insertion ([id number])
[2024-01-10 13:21] VITALS: BP 112/66; BMI 28.0
== END 2024-01-10 14:06 | disposition home or self-care (01) ==
LOC: HO.HWS 13:08
PROVIDERS: PCP Internal Medicine Geriatric Medicine; Visit Provider Obstetrics & Gynecology
DX: Z30.430 Encounter for insertion of intrauterine contraceptive device (principal); N93.9 Abnormal uterine and vaginal bleeding, unspecified; Z32.02 Encounter for pregnancy test, result negative
CPT/HCPCS: 58300

== ENCOUNTER → 2024-01-10 13:08 | Outpatient (BNVA) | payer MEDICAID, SELFPAY | PROVIDERS: PCP Internal Medicine Geriatric Medicine; Visit Provider Obstetrics & Gynecology | DX: Z30.430 Encounter for insertion of intrauterine contraceptive device (principal); N93.9 Abnormal uterine and vaginal bleeding, unspecified; D25.9 Leiomyoma of uterus, unspecified | CPT/HCPCS: 58300; 81025; J7298 ==

== ENCOUNTER 2024-02-14 13:57 | Outpatient (REF) | payer MEDICAID, SELFPAY ==
--- NOTE | ~2024-02-14 | XR_ITS ---
EXAMINATION: XR SHOULDER, RIGHT CLINICAL INFORMATION: Pain in right shoulder and neck pain right side. Patient reports pain for 2 weeks COMPARISON: Right shoulder 08/10/2018 TECHNIQUE: AP external rotation, Grashey, scapular Y, and axillary views of the right shoulder. FINDINGS: There are no fractures or dislocations. The humeral head is seated within a well-formed glenoid. The AC joint is intact. No abnormal soft tissue calcifications. XR/XR shoulder RT min 2V IMPRESSION: Unremarkable right shoulder radiographs.
--- NOTE | ~2024-02-14 | XR_ITS ---
EXAMINATION: XR CERVICAL SPINE CLINICAL INFORMATION: Pain in right shoulder and neck pain on right side COMPARISON: Same-day right shoulder TECHNIQUE: 3 views of the cervical spine were obtained. FINDINGS: There is no fracture or subluxation. Prevertebral soft tissues are within normal limits. The height of the vertebral bodies and disc spaces is well-maintained. There is slight straightening of the usual cervical lordosis which can be seen with muscle spasm or be due to patient positioning. XR/XR cervical spine 3V IMPRESSION: Slight straightening of the usual cervical lordosis which can be seen with muscle spasm or be due to patient positioning.
== END 2024-02-14 13:58 | disposition home or self-care (01) ==
LOC: HO.HHCX 13:57
PROVIDERS: Visit Provider Internal Medicine
DX: M25.511 Pain in right shoulder (principal); M54.2 Cervicalgia
CPT/HCPCS: 72040; 73030

== ENCOUNTER 2024-03-06 12:50 | Outpatient (REF) | payer MEDICAID, SELFPAY ==
--- NOTE | ~2024-03-06 | US_ITS ---
EXAMINATION: US RETROPERITONEAL COMPLETE (RENAL) CLINICAL INFORMATION: Calculus of kidney. COMPARISON: 03/11/2023, 02/15/2022. TECHNIQUE: Real-time imaging of the kidneys and bladder. Limited visualization due to bowel gas. FINDINGS: RIGHT KIDNEY: 10.5 x 5.0 x 5.3 cm (SAG x AP x TRV). No hydronephrosis. No renal calculi. Renal cortical thickness is normal. Limited visualization. LEFT KIDNEY: 10.1 x 4.6 x 5.0 cm (SAG x AP x TRV). Left extrarenal pelvis. No hydronephrosis. No renal calculi. Renal cortical thickness is normal. Limited visualization. US/US renal BI IMPRESSION: Left extrarenal pelvis. No obstructing renal calculi. Electronically signed by: Usha Orr MD 03/07/2024 04:51 PM EDT
== END 2024-03-06 12:51 | disposition home or self-care (01) ==
LOC: HO.US 12:50
PROVIDERS: PCP Internal Medicine Geriatric Medicine; Visit Provider Urology
DX: N20.0 Calculus of kidney (principal)
CPT/HCPCS: 76775

== ENCOUNTER 2024-03-19 09:39 | Outpatient (REF) | payer MEDICAID, SELFPAY ==
[2024-03-19 17:04] LABS: Urine Cytology See Pathology rpt
== END 2024-03-19 09:40 | disposition home or self-care (01) ==
LOC: HO.LNP 09:39
PROVIDERS: PCP Internal Medicine Geriatric Medicine; Visit Provider Nurse Practitioner Family
DX: N20.0 Calculus of kidney (principal); N39.46 Mixed incontinence
CPT/HCPCS: 81003; 88112; 99212

== ENCOUNTER 2024-03-19 09:39 | Outpatient (AMB) | payer MEDICAID, SELFPAY ==
--- NOTE | 2024-03-19 09:40 | MHC.OFFVIS ---
Intake Visit Reasons: 1y/US(set) Intake Note: Patient presents for follow up bilateral nephrolithiasis/ultrasound Imaging Completed: 03/06/24 Urology Medications: none Blood Thinner: none Gang Supervisor Required: No Accompanied by: Self / Same As Patient Allergies acetaminophen [Percocet] Adverse Reaction (Unknown, Verified 03/19/24 10:01) stomach pain oxycodone [Percocet] Adverse Reaction (Unknown, Verified 03/19/24 10:01) stomach pain wheat/egg Allergy (Unknown, Uncoded 03/19/24 10:01) throat irritation, stomach upset HPI Comments Details: Jen is a pleasant 43-year-old female patient of Dr. Mcclendon. She has a past medical history of nephrolithiasis, stress incontinence, IBS, and GERD. She presents to the office today for follow-up of her nephrolithiasis as well as mixed urinary incontinence. In discussion with the patient today she reports to be doing and feeling well. She reports since her last office visit here approximately 1 year ago she has had no bothersome urinary issues or concerns. Recent renal imaging results reviewed with the patient today. Bilateral kidneys with no renal calculi or hydronephrosis. She reports episodes of mixed urinary incontinence however does not find them bothersome and does not wish to undergo further treatment options at this time. When asked she denies nocturia, hematuria, dysuria, foul smelling urine, changes to urinary stream, flank pain, fever, and or chills. She is happy with her current voiding parameters. In office urinalysis results reviewed with the patient today 3+ microscopic hematuria however patient reports she is currently on her menses. When asked she denies any previous smoking history and or workplace chemical exposure. She otherwise offers no other issues or concerns at this time. PREVIOUS OFFICE NOTE: Has control of urination currently without medications Urine urgency and frequency is aggravated by coffee, chocolate and spicy food Completed pelvic floor physical therapy late 2020 Nephrolithiasis Imaging - 04/22 renal ultrasound NAD - 02/22 Renal US - no stones, cyst left cyst - 02/23 renal ultrasound evidence of stones Remain on vitamin B6 Mixed urinary incontinence background of IBS Per patient does have mild stress incontinence and significant urge and frequency incontinence Failed oxybutynin 5 mg had trialed on 15 mg which she also failed Prior medications Toviaz 8 mg Completed pelvic floor physical therapy 04/23 [facility] Medical History Bilateral nephrolithiasis Urinary, incontinence, stress female Urgency of micturition Renal stone IBS (irritable colon syndrome) GERD (gastroesophageal reflux disease) Irritable bowel Acid reflux Surgical History Hx of section History of esophagogastroduodenoscopy (EGD) Family History Sister Breast cancer Social History Household Members: Children Housing: Apartment Are you a primary health care law specialist to a significant other at home: No Do you presently have visiting nurse or other home services: No Alcohol intake: never Patient Tobacco Use Status: Never used Tobacco service: No Current occupational status: employed 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 Gender identity: Female Female Reproductive History Menstrual Age of Menarche: 14 Review of Systems Const All systems reviewed & are unremarkable except as noted in HPI and below Physical Exam Const General: cooperative, comfortable, no acute distress, well developed, alert and awake Orientation/consciousness: patient oriented x3 HEENT Head: Yes normal to inspection, Yes normocephalic and Yes atraumatic Ears: hearing grossly normal bilaterally Eyes General: appearance normal, both eyes and all related structures Neck Neck: Yes normal visual inspection and Yes trachea midline Chest Chest palpation & inspection: normal inspection of the chest Resp Effort & Inspection: normal respiratory effort and able to speak in complete sentences Cardio Rate: regular rate GI Inspection: Yes normal to inspection General: Yes no CVA tenderness Back/Spine/Pelvis Back: no CVA tenderness Skin General skin exam: no rashes or lesions noted Neuro General: patient oriented x3 Extrem General: Yes normal to inspection Psych Appearance: grossly normal and well kempt Mental Status: mental status grossly normal Speech and movement: Normal speech and movement present and Clear speech present Affect: normal affect Attitude: cooperative Thought process: Normal thought process present Thought content: Normal thought content present Results AMB Urinalysis, Automated UA Leukoctes 0 Ashley/uL Last Edit by Melissa Chaney on 03/19/24 10:03 UA Nitrite Last Edit by Melissa Chaney on 03/19/24 10:03 UA Urobilinogen 0.2 mg/dL Last Edit by Melissa Chaney on 03/19/24 10:03 UA Protein 0 mg/dL Last Edit by Melissa Chaney on 03/19/24 10:03 UA pH 6.0 Last Edit by Melissa Chaney on 03/19/24 10:03 UA Blood 200 Nate/uL Last Edit by Melissa Chaney on 03/19/24 10:03 UA Specific [place] 1.000 Last Edit by Melissa Chaney on 03/19/24 10:03 UA Ketone Negative Last Edit by Melissa Chaney on 03/19/24 10:03 UA Bilirubin 0 mg/dL Last Edit by Melissa Chaney on 03/19/24 10:03 UA Glucose 0 mg/dL Last Edit by Melissa Chaney on 03/19/24 10:03 Results Reviewed Results Reviewed: Date of Service: 03/06/24 EXAMINATION: US RETROPERITONEAL COMPLETE (RENAL) FINDINGS: RIGHT KIDNEY: 10.5 x 5.0 x 5.3 cm (SAG x AP x TRV). No hydronephrosis. No renal calculi. Renal cortical thickness is normal. Limited visualization. LEFT KIDNEY: 10.1 x 4.6 x 5.0 cm (SAG x AP x TRV). Left extrarenal pelvis. No hydronephrosis. No renal calculi. Renal cortical thickness is normal. Limited visualization. IMPRESSION: Left extrarenal pelvis. No obstructing renal calculi. Assessment & Plan Assessment & Plan (1) Urinary, incontinence, stress female: Comment: Failed oxybutynin 15 mg ER Code(s): N39.3 - Stress incontinence (female) (male) Category: Medical (2) Renal stone: Code(s): N20.0 - Calculus of kidney Category: Medical Plan In office urinalysis results reviewed with the patient today; as noted above. Recent renal imaging results reviewed with the patient today; as noted above. Patient currently denies any bothersome urinary issues or concerns. She reports be happy with current voiding parameters. Discussed, educated, and stressed the importance of adequate hydration in relation to nephrolithiasis as well as overall health and well-being. Discussed adding 1 oz of lemon juice to water daily. Follow-up in 1 year with renal ultrasound to be completed prior; or sooner with any issues, concerns, and or questions. Orders: Orders US renal BI 1 Year N20.0 - Calculus of kidney AMB Urinalysis Automated Today Z13.9 - Encounter for screening, unspecified Patient Instructions: The patient had an opportunity to ask questions regarding the treatment plan. All questions were answered. Physical exam, labs, and imaging were discussed and reviewed in detail. As well as risks, benefits, and discussion of treatment choices. No major barriers to understanding were identified. The patient expressed understanding and agreement with the above treatment plan. The patient was made aware they should contact our office by phone for worsening of their current condition, the appearance of new symptoms, or with any questions or concerns. Compliance is encouraged with any medications and follow up testing that is ordered. It is a privilege to be allowed the opportunity to participate in? your urological care.? Again, if you have any questions or concerns If you have any questions or concerns please do not hesitate to contact me. The office is [phone]. This note is constructed using voice recognition software. While every effort has been made to ensure accuracy flight information expediter errors may have been included. Yours sincerely, JUANPABLO Burger Coding Level of Care Code Est Pt Level 3 (96489) Diagnoses Urinary, incontinence, stress female N39.3 Renal stone N20.0
== END 2024-03-19 10:07 | disposition home or self-care (01) ==
PROVIDERS: PCP Internal Medicine Geriatric Medicine; Visit Provider Nurse Practitioner Family
DX: N39.3 Stress incontinence (female) (male) (principal); N20.0 Calculus of kidney; Z13.9 Encounter for screening, unspecified
CPT/HCPCS: 99213

== ENCOUNTER 2024-03-30 09:56 | Outpatient (REF) | payer MEDICAID, SELFPAY ==
--- NOTE | ~2024-03-30 | MM_ITS ---
EXAMINATION: MM SCREENING DIGITAL BREAST TOMOSYNTHESIS, BILATERAL CLINICAL INFORMATION: Screening. Asymptomatic. COMPARISON: Mammography: Comparison is made with available priors TECHNIQUE: Digital breast mammography with tomosynthesis is performed in both the craniocaudal and mediolateral oblique views along with computer-aided detection (CAD). FINDINGS: The breasts are heterogeneously dense, which may obscure small masses (ACR BI-RADS breast composition Category c). There are no significant masses, abnormal calcifications, or other abnormalities. MM/MM tomosynthesis screening BI IMPRESSION: No mammographic evidence of malignancy. ASSESSMENT: BI-RADS BI-RADS 1 - Negative RECOMMENDATION: Routine annual mammography screening. 1 year F/U This examination should not preclude the clinical evaluation of a suspicious palpable abnormality. This patient's information was entered into a reminder system with a target due date for their next mammogram. Electronically signed by: Noemi Javier DO 04/11/2024 09:24 AM EDT
== END 2024-03-30 09:57 | disposition home or self-care (01) ==
LOC: HO.MAMMO 09:56
PROVIDERS: PCP Internal Medicine Geriatric Medicine; Visit Provider Internal Medicine Geriatric Medicine
DX: Z12.31 Encounter for screening mammogram for malignant neoplasm of breast (principal)
CPT/HCPCS: 77063; 77067

== ENCOUNTER → 2024-03-30 10:00 | Outpatient (BNV) | payer MEDICAID, SELFPAY | PROVIDERS: PCP Internal Medicine Geriatric Medicine; Visit Provider Internal Medicine | DX: Z12.31 Encounter for screening mammogram for malignant neoplasm of breast (principal) | CPT/HCPCS: 77063; 77067 ==

== ENCOUNTER 2024-04-03 13:13 | Outpatient (AMB) | payer MEDICAID, SELFPAY ==
--- NOTE | 2024-04-03 13:21 | A.OFFVIS_ITS ---
Vital Signs 04/03/24 13:22 Height 4 ft 11 in Weight 129 lb BMI 26.1 BP 118/70 Intake Visit Reasons: Annual Watch Crystal Edge Grinder Required: No Information Interpreted: clinical only Full Time Babysitter: Full Time Babysitter Present Allergies acetaminophen [Percocet] Adverse Reaction (Unknown, Verified 03/19/24 10:01) stomach pain oxycodone [Percocet] Adverse Reaction (Unknown, Verified 03/19/24 10:01) stomach pain wheat/egg Allergy (Unknown, Uncoded 03/19/24 10:01) throat irritation, stomach upset Is last menstrual period known: Yes Last menstrual period: 04/06/24 HPI Comments Details: Presenting for annual exam and for IUD check. No complaints. Last Pap/HPV was negative in 12/22 Last Mammogram was done in 03/30/2024, the results still pending [facility] Medical History Bilateral nephrolithiasis Urinary, incontinence, stress female Urgency of micturition Renal stone IBS (irritable colon syndrome) GERD (gastroesophageal reflux disease) Irritable bowel Acid reflux Surgical History Hx of section History of esophagogastroduodenoscopy (EGD) Family History Sister Breast cancer Social History Household Members: Children Housing: Apartment Are you a primary career development specialist to a significant other at home: No Do you presently have visiting nurse or other home services: No Alcohol intake: never Patient Tobacco Use Status: Never used Tobacco service: No Current occupational status: employed 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 Gender identity: Female Female Reproductive History Menstrual Age of Menarche: 14 Date of last menstrual period: 04/06/24 control method: progestin IUCD Total pregnancies: 2 Full term: 2 Date of last pap smear: 12/22/20 (negative) Review of Systems Const All systems reviewed & are unremarkable except as noted in HPI and below Card Reports as per HPI Resp Reports as per HPI GI Reports as per HPI and Reports no additional complaints Reports as per HPI Physical Exam Vital Signs: Last Vital Signs BP 118/70 04/03/24 13:22 BMI result Body Mass Index 26.1 Const General: cooperative, healthy appearing and comfortable Chest Chest palpation & inspection: normal inspection of the chest and normal palpation of entire chest wall Breast/axilla inspection: normal inspection of the breasts and normal inspection of the axillae Breast/axilla palpation: normal palpation of the breasts, normal palpation of the axillae and no axillary lymphadenopathy Resp Effort & Inspection: normal respiratory effort Auscultation: clear to auscultation bilaterally Percussion: percussion normal Cardio Palpation: normal PMI Rate: regular rate Rhythm: regular rhythm Heart sounds: no murmurs and no rubs Peripheral pulses: Peripheral pulses 2+ throughout GI Inspection: Yes normal to inspection Palpation (GI): Soft to palpation, nontender, no guarding, not rigid and No hepatosplenomegaly present Percussion: Yes normal to percussion Auscultation: normal bowel sounds Rectal Exam - Female: deferred General: Yes bladder normal to palpation External Female Exam: No lesion Speculum Exam - Vagina: normal appearance of the vagina, normal palpation, normal vaginal discharge and not erythematous Speculum Exam - Cervix: normal appearance of the cervix, normal palpation and Other cervical findings present (IUD string seen) Bimanual exam- vagina & uterus: normal bimanual exam, normal palpation, uterine size normal, bladder normal to palpation, consistency normal and normal palpation Bimanual Exam- Adnexa, other: normal adnexae, no masses and no tenderness Results AMB Test Urine AMB Test Urine Negative Last Edit by Melba Acevedo CMA on 04/03/24 13:55 Results Reviewed Results Reviewed: Laboratory Last Values Tst Clinic Negative 04/03/24 13:54 Assessment & Plan Assessment & Plan (1) Well woman exam with routine gynecological exam: Code(s): Z01.419 - Encounter for gynecological examination (general) (routine) without abnormal findings Category: Medical Plan: Co testing Not indicated this year Instructions given the patient to schedule next screening Mammogram in 01/25. Counseled the patient about the recommended dietary allowance of 1000 mg of Calcium & 600 IU of vitamin D. The patient was instructed to perform monthly self-breast exams and to schedule an annual exam in a year; All questions answered and the patient verbalized understanding. Instructed the patient to schedule annual exam in a year (2) IUD check up: Code(s): Z30.431 - Encounter for routine checking of intrauterine contraceptive device Category: Medical Plan: Discussed with the patient the finding on physical exam, IUD string in place, the patient was reassured. Instructions given to patient to call in case of temperature above 100.4, severe cramping/pelvic pain, abnormal discharge or abnormal uterine bleeding or if she misses her menstrual cycle. Otherwise follow-up at her annual exam appointment. All questions answered, the patient verbalized understanding. Orders: Orders AMB HCG Urine Test 04/03/24 Z30.431 - Encounter for routine checking of intrauterine contraceptive device Coding Level of Care Code Est Pt Prev Care 40-64y(70091) Diagnoses Well woman exam with routine gynecological exam Z01.419 IUD check up Z30.431
[2024-04-03 13:22] VITALS: BP 118/70; BMI 26.1
== END 2024-04-03 13:38 | disposition home or self-care (01) ==
PROVIDERS: PCP Internal Medicine Geriatric Medicine; Visit Provider Obstetrics & Gynecology
DX: Z01.419 Encounter for gynecological examination (general) (routine) without abnormal findings (principal); Z30.431 Encounter for routine checking of intrauterine contraceptive device
CPT/HCPCS: 99396

== ENCOUNTER → 2024-04-03 13:13 | Outpatient (BNVA) | payer MEDICAID, SELFPAY | PROVIDERS: PCP Internal Medicine Geriatric Medicine; Visit Provider Obstetrics & Gynecology | DX: Z01.419 Encounter for gynecological examination (general) (routine) without abnormal findings (principal) | CPT/HCPCS: 81025; 99396 ==

== ENCOUNTER 2024-05-14 11:44 | Outpatient (REF) | payer MEDICAID, SELFPAY ==
--- NOTE | ~2024-05-14 | XR_ITS ---
EXAMINATION: XR FINGER, RIGHT CLINICAL INFORMATION: Pain. COMPARISON: None available. TECHNIQUE: Three views of the right thumb. FINDINGS: The bones and soft tissues are normal. No fracture. Alignment is anatomic. Joint spaces are maintained. XR/XR finger RT min 2V IMPRESSION: Normal finger radiographs. Electronically signed by: Heather Antonio MD 05/14/2024 03:37 PM [facility]
== END 2024-05-14 11:45 | disposition home or self-care (01) ==
LOC: HO.HHCX 11:44
PROVIDERS: Visit Provider Internal Medicine
DX: M79.644 Pain in right finger(s) (principal); G89.29 Other chronic pain
CPT/HCPCS: 73140

== ENCOUNTER 2024-11-12 10:41 | Outpatient (REF) | payer MEDICAID, SELFPAY ==
--- NOTE | ~2024-11-12 | US_ITS ---
CLINICAL HISTORY: D25.9 - Leiomyoma of uterus, unspecified,UNTERINE MYOMA Transabdominal and transvaginal pelvic ultrasound Comparison: 08/23/2023 Findings: Uterus 9.8 x 5.0 x 5.2 cm. Endometrium 6 mm. IUD in normal position. 2.3 x 2.5 fundal fibroid noted. Small volume free fluid in cul-de-sac. Right ovary 2.5 x 1.5 x 1.5 cm. No significant focal abnormality. Left ovary 4.2 x 3.2 x 3.6 cm. 3.2 x 3.4 cm simple cyst. Impression: Fundal fibroid and left ovarian cyst as above Otherwise unremarkable This document has been electronically signed by: Bienvenido Jaeger MD on 11/12/2024 19:45:20
--- OUTSIDE RECORDS SUMMARY | 2024-11-12 11:26 | XMS_ITS | Encounter Summary ---
Author Organization [employer] Address [address] [place] [address] Care Team Providers Care Roofing Laborer Name Role Phone Name, Luis ECHEVARRIA Primary Care Provider [phone] Reason for Visit * Reason Comments Med Refill Encounter Details Date Type Department Care Team ([facility] st Contact Info) Description 10/10/2024 Refill [facility] [address] [place], [place] [phone] Name, MD Luis [address] [place] [address] Social History Tobacco Use Types Packs/Day Years Used Date Smoking Tobacco: Never Smokeless Tobacco: Never Alcohol Use Standard Drinks/Week Comments Never 0 (1 standard drink = 0.6 oz pur e alcohol) Alcohol Answer Date Recorded Frequency of Alcohol Consumption Not on file 12/20/2023 Average Number of Drinks Not on file 024 Frequency of Binge Drinking Not on file 12/02 Score 0 12/20/2023 Depression Answer Date Recorded Patient Health Questionnaire-9 Score 0 08/12/2023 Patient Health Questionnaire-9 Score 0 08/12/2023 Last PHQ-9: Questionnaire Data Not on file 0 08/12/2023 Housing Stability Answer Date Recorded What is your housing situation today? I have otto wall 08/12/[address] you li ve. Do you have problems with any of the following? None of the above 08/12/2023 Food Insecurity Answer Date Recorded Within the past 12 months, y ou worried that your food would run out before you got money to buy more: Never True 08/12/2023 Within the past 12 months,th e food you bought just didn't last and you didn't have enough money to get more: Never True 03/2024 Transportation Answer Date Recorded In the past 12 months, has l ack of transportation kept you from medical appts, meetings, work or from getting things needed for daily living? No 08/12/2023 Utilities Answer Date Recorded In the past 12 months, has t he electric, gas, oil or water company threatened to shut off services in your home? No 08/12/2023 Depression Answer Date Recorded Patient Health Questionnaire-2 Score 0 08/12/2023 Comments Unknown Sex and Gender Information Value Date Recorded Sex Assigned at Female 05/03/2022 10:17 AM EDT Legal Sex Female 10:17 AM EDT Gender Identity Female 05/03/2022 10:17 AM EDT Sexual Orientation Straight 05/03/2022 10 :17 AM EDT documented as of this encounter Plan of Treatment Upcoming Encounters Date Type Department Care Team (Late st Contact Info) Description 12/28/2024 3:00 PM EDT Office Visit [facility] ADULT D[facility]AL [address] [place] [address] Amelia Dillon [address] [place] [address] documented as of this encounter Visit Diagnoses Not on filedocumented in this encounter Additional Health Concerns Assessment Noted Time PHQ-9 Depression Total Score: 0 08/12/19 24 9:27 AM EST documented as of this encounter Care Teams Roofing Laborer Relationship Specialty Start Date End Date Name, MD Luis [address] [place] [address] PCP - General Family Medicine 09/05/15 documented as of this encounter
--- OUTSIDE RECORDS SUMMARY | 2024-11-12 11:26 | XMS_ITS | Encounter Summary ---
Author Organization [email or web address] Address [address] [place] [address] Care Team Providers Care Stamp Machine Servicer Name Role Phone Name, Luis ECHEVARRAI Primary Care Provider [phone] Reason for Visit * Reason Comments Med Refill Encounter Details Date Type Department Care Team (Late st Contact Info) Description 06/29/2023 Refill [facility] [address] [place], [place] [phone] Rosa Perera MD [address] [place], [place] [phone] Sciatic leg pain Social History Tobacco Use Types Packs/Day Years Used Date Smoking Tobacco: Never Smokeless Tobacco: Never Alcohol Use Standard Drinks/Week Comments Never 0 (1 standard drink = 0.6 oz pur e alcohol) Depression Answer Date Recorded Patient Health Questionnaire-9 Score 0 07/30/2022 Housing Stability Answer Date Recorded What is your housing situation today? I have otto wall 04/26/[address] you li ve. Do you have problems with any of the following? None of the above 04/26/2023 Food Insecurity Answer Date Recorded Within the past 12 months, y ou worried that your food would run out before you got money to buy more: Never True 04/26/2023 Within the past 12 months,th e food you bought just didn't last and you didn't have enough money to get more: Never True Transportation Answer Date Recorded In the past 12 months, has l ack of transportation kept you from medical appts, meetings, work or from getting things needed for daily living? No 04/26/2023 Utilities Answer Date Recorded In the past 12 months, has t he electric, gas, oil or water company threatened to shut off services in your home? No 04/26/2023 Depression Answer Date Recorded Patient Health Questionnaire-2 Score 0 07/30/2022 Comments Unknown Sex and Gender Information Value [...] Description 12/28/2024 3:00 PM EDT Office Visit [facility] [address] [place] [address] Wilma, Amelia [address] [place] [address] documented as of this encounter Visit Diagnoses Diagnosis Sciatic leg pain documented in this encounter Additional Health Concerns Assessment Noted Time PHQ-9 Depression Total Score: 0 07/30/19 23 10:15 AM EST documented as of this encounter Care Teams Stamp Machine Servicer Relationship Specialty Start Date End Date Name, MD Luis [address] [place] [address] PCP - General Family Medicine 09/05/15 documented as of this encounter
--- OUTSIDE RECORDS SUMMARY | 2024-11-12 11:26 | XMS_ITS | Encounter Summary ---
Author Organization [employer] Address [address] [place] [address] Care Team Providers Care Wireless Operator Name Role Phone Name, Luis ECHEVARRIA Primary Care Provider [phone] Encounter Details Date Type Department Care Team (Late st Contact Info) Description 10/19/2024 Telephone [facility] MED[facility]INE [address] [place], [place] [phone] Name, MD Luis [address] [place] [address] Social History Tobacco Use Types Packs/Day Years [...] Description 12/28/2024 3:00 PM EDT Office Visit [facility] ADULT [facility] [address] [place] [address] Amelia Dillon [address] [place] [address] documented as of this encounter Visit Diagnoses Not on filedocumented in this encounter Additional Health Concerns Assessment Noted Time PHQ-9 Depression Total Score: 0 08/12/19 24 9:27 AM EST documented as of this encounter Care Teams Wireless Operator Relationship Specialty Start Date End Date Name, MD Luis [address] [place] [address] PCP - General Family Medicine 09/05/15 documented as of this encounter
--- OUTSIDE RECORDS SUMMARY | 2024-11-12 11:26 | XMS_ITS | Clinical Summary ---
Author Organization [employer] [facility] Address [address] 7[address] [place] [address] Care Team Providers Care Grey Goods Marker Name Role Phone Name, Luis ECHEVARRIA Primary Care Provider [phone] Allergies Active Allergy Reactions Criticality Noted Date Comments Acetaminophen 12/31/2013 Other reaction(s): UPSET STOMACH Murcia Pod Extract 12/03/2020 Egg White (Egg Protein) 02/29/2020 Milk (Cow) 12/03/2020 Other 04/15/2023 Other reaction(s): eggs: rash Oxycodone 12/31/2013 Other reaction(s): UPSET STOMACH Oxycodone-Acetaminophen 08/29/2021 Peanut-Containing Drug Products 02/29/2020 Wheat 12/03/2020 Medications cetirizine (ZyrTEC) 10 MG tablet Take 10 mg by mouth in the morning. 2 Active [facility] B6 100 MG tablet TAKE 1 TABLET BY MOUTH EVERY DAY OTC DRUG NOT COVERED 2 Active Low-Ogestrel 0.3-30 MG-MCG tablet TAKE 1 TABLET BY MOUTH EVERY DAY FOR 84 DAYS 2 Active valACYclovir (Valtrex) 500 MG tabletIndications: Herpes Take 1 tablet by mouth twice a day 6 tablet 4 4 Active atorvastatin (Lipitor) 40 MG tabletIndications: Hyperlipidemia, unspecified hyperlipidemia type Take 1 tablet (40 mg) by mouth Once per day. 90 tablet 1 4 Active meloxicam (Mobic) 15 MG tabletIndications: Acute pain of right shoulder Take 1 tablet (15 mg) by mouth Once per day. 30 tablet 11 4 02/14/20 25 Active cyclobenzaprine (Flexeril) 10 MG tabletIndications: Acute pain of right shoulder Take 1 tablet (10 mg) by mouth if needed in the morning, at noon, and at bedtime for muscle spasms for up to 10 days. 30 tablet 4 Active cholecalciferol (Vitamin D3) 25 MCG (1000 UT) tablet TAKE 1 TABLET BY MOUTH EVERY DAY 90 tablet 4 Active Diclofenac Sodium 1 % gelIndications:Sunshine mb pain, right,Sciatic leg pain apply (2G) by topical route 3 times every day to the affected area(s) 100 g 4 Active triamcinolone (Kenalog) 0.1 % cream Apply topically if needed in the morning and at bedtime (pain and swelling). 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 On exam evidence of muscle spasm Etiology? 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 On exam evidence of muscle spasm Etiology? Likely musculoskeletal Plan: NSAIDS, Muscle relaxant, PT eval pt requested [facility] in [place] Fractured dental christian with loss of materi al 07/22/2023 Localized gingival recession, minimal 12/30/2022 Erosion of teeth, limited to enamel 12/30/2022 Dupuytren's contracture 07/30/2022 Hand pain 07/30/2022 Iron deficiency anemia due to chronic blood loss 07/30/2022 Radial styloid tenosynovitis 07/30/2022 Uterine leiomyoma 07/30/2022 Urge incontinence of urine 03/22/2018 Neck pain 09/05/2017 Backache 06/14/2017 Ganglion of hand 10/12/2016 Kidney stone 12/10/2015 Miguel hematuria 11/24/2015 Depressive disorder 07/17/2013 Anemia 05/21/2013 Hyperlipidemia 10/23/2012 NICK (stress urinary incontinence, female) 2012 Resolved Problems Problem Noted Date Diagnosed Date Resolved Date Abnormal uterine bleeding 07/30/2022 Encounters Date Type Department Care Team Description 10/19/2024 Telephone [facility] MEDICINE [address] [place], [place] [phone] Name, MD Luis 10/10/2024 Refill [facility] [address] [place] [address] Name, MD Luis 09/14/2024 Population Health Risk Score [facility] () Department [address] [place] [phone] Provider, Population Health Generic from Last 3 Months Immunizations Name Administration Dates Next Due Influenza Injectable Quadriv alant Preservative Free IIV4 MDCK 04/24/2020 Influenza injectable quadriv alent IIV4 with preservative 05/04/2017 Influenza injectable quadriv alent preservative free 04/15/2023,04/07/2022,04/30/2021,2015 Influenza, IIV3, injectable 04/15/2014, 1 MMR 03/23/2019,04/14/2012 Moderna Covid-19 Vaccine 12+ 05/30/2021,10/28/19 21,09/29/2020 Pfizer Covid-19 Vaccine 12+ 12/10/2021 TD (adult), 2 Lf tetanus tox oid, preservative free, adsorbed 04/30/2022 Tdap 04/14/2012 Varicella 03/23/2019 Social History Tobacco Use Types Packs/Day Years Used Date Smoking Tobacco: Never Smokeless Tobacco: Never Tobacco Cessation:Counseling Given: Not Answered Alcohol Use Standard Drinks/Week Comments Never 0 [...] Orientation Straight 05/03/2022 10 :17 AM EDT Last Filed Vital Signs Vital Sign Reading Time Taken Comments Blood Pressure 111/57 06/20/2024 2:21 PM EST Pulse 69 06/20/2024 2:21 PM EST Temperature 36.6 ??C (97.9 ??F) 06/20/2024 2:21 PM ES T Respiratory Rate 16 06/20/2024 2:21 PM EST Oxygen Saturation 97% 06/20/2024 2:21 PM EST Inhaled Oxygen Concentration - - Weight 59.4 kg (131 lb) 06/20/2024 2:21 PM EST Height 154.9 cm (5' 1 ) 12/20/2023 9:04 AM EDT Body Mass Index 24.75 12/20/2023 9:04 AM EDT Plan of Treatment Upcoming Encounters Date Type Department Care Team (Late st Contact Info) Description 12/28/2024 3:00 PM EDT Office Visit [facility] ADULT DENTAL [address] [place] [address] Emmanuel Dillonaris [address] [place] [address] Health Maintenance Due Date Last Done Comments Family Planning (PISQ) 1996 Hepatitis B Vaccines (1 of 3 - 19+ 3-dose series) 2000 Pap Smear 2002 Dental X-Ray: Bitewings 01/01/2024 12/31/19 23, 04/06/2021, 06/15/2019, Additional history exists Dental Oral Exam 01/20/2024 07/21/2023, , 04/06/2021, Additional history exists Dental Prophylaxis 01/20/2024 07/21/2023, 0 12/30/2022, 04/06/2021, Additional history exists COVID-19 Vaccine ( season) 2024 12/10/2021, 05/30/2021, 10/27/2020, Additional history exists Influenza Vaccine (#1) 2024 , 04/07/2022, 04/30/2021, Additional history exists Dental X-Ray: Full Mouth 04/07/2024 04/06/2021, 08/2014 Depression Screening 08/12/2024 08/12/2023, 08/12/19 24 SDOH Screening 08/12/2024 08/12/2023 Alcohol/Substance Use Screening 12/19/2024 12/20/2023 Mammogram 03/30/2025 03/30/2024, 09/02, 09/30/2023, Additional history exists Tobacco Screening 05/14/2025 05/14/2024 Cervical Cancer Screening 12/22/2025 HPV/Cotest 12/22/2025 12/22/2020, 12/03, 09/03/2020, Additional history exists Zoster Vaccines (1 of 2) 09/19/2031 DTaP/Tdap/Td Vaccines (3 - Td or Tdap) 04/30/2032 04/30/2022, 04/14/2012 RSV Patients and Patients Aged 60 years or older (1 - 1-dose 75+ series) 2056 HIV Screening Completed 04/30/2022, 05/18/2021 Hepatitis C Screening Completed 04/30/2022, 021 HIB Vaccines Aged Out No longer eligi ble based on patient's age to complete this topic HPV Vaccines Aged Out No longer eligi ble based on patient's age to complete this topic Hepatitis A Vaccines Aged Out No long er eligible based on patient's age to complete this topic IPV Vaccines Aged Out No longer eligi ble based on patient's age to complete this topic Meningococcal Vaccine Aged Out No dominga alicia eligible based on patient's age to complete this topic Pneumococcal Vaccine: Pediatrics (0 to 5 Years) and At-Risk Patients (6 to 49) Years) Aged Out No longer eligible based on patient's age to complete this topic RSV under 20 months Aged Out No longe r eligible based on patient's age to complete this topic Rotavirus Vaccines Aged Out No longer eligible based on patient's age to complete this topic Procedures Procedure Name Priority Date/Time Associated Diagnosis Comments BI MAMMOGRAM SCREENING TOMOSYNTHESIS BILATERAL Routine 03/30/2024 10:00 AM EDT PROPHYLAXIS - ADULT Routine 07/21/2023 3 :00 PM EST PERIODIC ORAL EVALUATION - ESTABLISHED PATIENT Routine 07/21/2023 3:00 PM EST BITEWINGS - 4 RADIOGRAPHIC IMAGES Routine 12/30/2022 8:00 AM EDT Localized gingival recession, minimal ZZZ HISTORICAL HEPATITIS C AB W/REFL TO HCV RNA, QN, PCR Routine 04/30/2022 11:36 AM EDT HIV 1/2 ANTIGEN/ANTIBODY, FOURTH GENERATION W/RFL Routine 04/30/2022 11:36 AM EDT INTRAORAL - COMPLETE SERIES OF RADIOGRAPHIC IMAGES Routine 04/06/2021 12:00 AM EDT ZZZ HISTORICAL HPV E6/E7 RFLX JENNIFER 16 18/45 Routine 12/22/2020 11:23 AM EDT from Last 3 Months or Most Recently Relevant to Health Maintenance Results * BI Mammogram Screening Tomosynthesis Bilateral (03/30/2024 10:00 AM EDT) Anatomical Region Laterality Modality Breast Bilateral Mammography 03/30/2024 10:0 0 AM EDT Narrative 04/11/2024 9:27 AM EDT ? [facility] ? [address] ?[place], [place] [address] ? Mammography Report ? Signed ? Patient: Janes,Jen M ?MR#: MM ?? [id number] ? : 1980 ?Acct:[id number] ? Age/Sex: 43 / F ?ADM Date: 03/30/24 ? Loc: HO.MAMMO ? Attending Dr: Luis Name MD ? Ordering Physician: Name,Luis MD ?Results: 1Negative ? Date of Service: 03/30/24 ?Follow Up: 1 Year From Orig ?? inal Mammogram ? Procedure(s): MM tomosynthesis screening BI ?? Accession Number(s): [id number] ? cc: Name,Luis ECHEVARRIA ? EXAMINATION: ?? MM SCREENING DIGITAL BREAST TOMOSYNTHESIS, BILATERAL ? CLINICAL INFORMATION: ? Screening. Asymptomatic. ? COMPARISON: ?? Mammography: Comparison is made with available priors ? TECHNIQUE: ?? Digital breast mammography with tomosynthesis is performed in both the ?? craniocaudal and mediolateral oblique views along with computer-aided ?? detection (CAD). ? FINDINGS: ?? The breasts are heterogeneously dense, which may obscure small masses ?? (ACR BI-RADS breast composition Category c). ? There are no significant masses, abnormal calcifications, or other ?? abnormalities. ? MM/MM tomosynthesis screening BI ?? IMPRESSION: ?? No mammographic evidence of malignancy. ? ASSESSMENT: ? BI-RADS BI-RADS 1 - Negative ? RECOMMENDATION: ?? Routine annual mammography screening. ? 1 year F/U ? This examination should not preclude the clinical evaluation of a ?? suspicious palpable abnormality. ? This patient's information was entered into a reminder system with a ?? target due date for their next mammogram. ? Electronically signed by: ??Noemi Javier DO ??04/11/2024 09:24 AM EDT ? Dictated By: ?Noemi Javier DO ? Signed By: ?<Electronically signed by Nomei Javier, DO in OV> ? 04/11/24 0924 ? DD/ 1000 ? TD/TT: 03/30/24 1012 ? Tank Worker: ? Procedure Note Donerendirater, Image - 04/11/2024 [facility] [address] [place] [address] Mammography Report Signed Patient: Jen Marrero [facility]#: [id number] : 1980Acct:[id number] Age/Sex: 43 / FADM Date: 03/30/24 Loc: HO.MAMMO Attending Dr: Luis Mcclendon MD Ordering Physician: Luis Mcclendonesults: 1Negative Date of Service: 03/30/24Follow Up: 1 Year From Orig inal Mammogram Procedure(s): MM tomosynthesis screening BI Accession Number(s): [id number] cc: Luis Mcclendon MD EXAMINATION: MM SCREENING DIGITAL BREAST TOMOSYNTHESIS, BILATERAL CLINICAL INFORMATION: Screening. Asymptomatic. COMPARISON: Mammography: Comparison is made with available priors TECHNIQUE: Digital breast mammography with tomosynthesis is performed in both the craniocaudal and mediolateral oblique views along with computer-aided detection (CAD). FINDINGS: The breasts are heterogeneously dense, which may obscure small masses (ACR BI-RADS breast composition Category c). There are no significant masses, abnormal calcifications, or other abnormalities. MM/MM tomosynthesis screening BI IMPRESSION: No mammographic evidence of malignancy. ASSESSMENT: BI-RADS BI-RADS 1 - Negative RECOMMENDATION: Routine annual mammography screening. 1 year F/U This examination should not preclude the clinical evaluation of a suspicious palpable abnormality. This patient's information was entered into a reminder system with a target due date for their next mammogram. Electronically signed by: Noemi Javier DO 04/11/2024 09:24 AM EDT RP Dictated By: Noemi Javier DO Signed By: <Electronically signed by Noemi Javier DO in OV> 04/11/24 0924 DD/ 1000 TD/TT: 03/30/24 1012 Tank Worker: us Luis Mcclendon MD IMG BI PROCEDURES Final Result * HEPATITIS C AB W/REFL TO HCV RNA, QN, PCR (04/30/2022 11:36 AM EDT) HEPATITIS C ANTIBODY NON-REACTI VE NON-REACT JEAN PIERRE CONVERTED LEGACY LABS INDEX 0.04 <1.00 CONVERTED LEGACY LABS Comment: ?? HCV antibody was non-reactive. There is no laboratory ?? evidence of HCV infection. ?? In most cases, no further action is required. However, if recent HCV exposure is suspected, a test for HCV RNA (test code 63684) is suggested. ?? For additional information please refer to http://education.[employer]vesting.[employer]pluck/faq/DWC26b9 (This link is being provided for informational/ educational purposes only.) ?? 04/30/2022 11:3 6 AM EDT Luis Mcclendon MD HISTORICAL/NON ORDERABLE LABS Fi nal Result CONVERTED LEGACY LABS * HIV 1/2 ANTIGEN/ANTIBODY,FOURTH GENERATION W/RFL (04/30/2022 11:36 AM EDT) HIV-1/2 ANTIGEN AND ANTIBODIES, 4TH GENERATION W/ REFLEX NON-REACT JEAN PIERRE NON-REACT JEAN PIERRE CONVERTED LEGACY LABS Comment: HIV-1 antigen and HIV-1/HIV-2 antibodies were not detected. There is no laboratory evidence of HIV infection. ?? PLEASE NOTE: This information has been disclosed to you from records whose confidentiality may be protected by state law. ??If your state requires such protection, then the state law prohibits you from making any further disclosure of the information without the specific written consent of the person to whom it pertains, or as otherwise permitted by law. A general authorization for the release of medical or other information is NOT sufficient for this purpose. ? For additional information please refer to http://EdeniQ.[employer]/faq/REC133 (This link is being provided for informational/ educational purposes only.) ? The performance of this assay has not been clinically validated in patients less than 2 years old. ?? 04/30/2022 11:3 6 AM EDT us Luis Name LAB BLOOD ORDERABLES Final Resul t CONVERTED LEGACY LABS * HPV E6/E7 RFLX JENNIFER 16 18/45 (12/22/2020 11:23 AM EDT) Pathologist [facility] HPV 16 RNA [facility] HPV 18/45 RNA [facility] HPV E6 E7 ADD [facility] HPV mRNA E6/E7 rflx Not Detected Not Detected [facility] Comment: Methodology: Irish Moss Bleacher-Mediated Amplification This assay detects E6/E7 viral messenger RNA (mRNA) from 14 high-risk HPV types (16,18,31,33,35,39,45,51,52,56,58,59,66,68). The analytical performance characteristics of this assay have been determined by [employer]. The modifications have not been cleared or approved by the FDA. This assay has been validated pursuant to the CLIA regulations and is used for clinical purposes. For additional information, please refer to http://education.[employer]/faq/KXK083w5 (This link if provided for information/ educational purposes only.) THIS TEST WAS PERFORMED AT: [employer] [address] [place] [address] [address] [place], [place] ??[phone] KARUNA ROGERS MD 12/22/2020 11:2 3 AM EDT us [place] HISTORICAL/NON ORDERABLE LABS Fi nal Result [facility] [address] [place] [address], from Last 3 Months or Most Recently Relevant to Health Maintenance Insurance [facility] C3 DENTAL-[facility] [place] [place] [address] [place] [address] [place] [address] Care Teams Grey Goods Marker Relationship Specialty Start Date End Date Name, MD Luis [address] [place] [address] PCP - General Family Medicine 09/05/15
--- OUTSIDE RECORDS SUMMARY | 2024-11-12 11:26 | XMS_ITS | Encounter Summary ---
Author Organization [employer] [facility] Address [address] 7[address] [place] [address] Care Team Providers Care Supervisor Packing Room Name Role Phone Name, Luis ECHEVARRIA Primary Care Provider Encounter Details Date Type Department Care Team (Latest Contact Info) Description 06/15/2019 Abstract [facility] CONVERSIONS Dental, Provider, DDS Social History Tobacco Use Types Packs/Day Years Used Date Smoking Tobacco: Never Assessed Comments Unknown Sex and Gender Information Value [...] Description 12/28/2024 3:00 PM EDT Office Visit [facility] ADULT DENTAL [address] [place] [address] WilmaEmmanuelAmelia [address] [place] [address] documented as of this encounter Visit Diagnoses Not on filedocumented in this encounter Care Teams Supervisor Packing Room Relationship Specialty Start Date End Date Name, MD Luis [address] [place] [address] PCP - General Family Medicine 09/05/15 documented as of this encounter
--- OUTSIDE RECORDS SUMMARY | 2024-11-12 11:26 | XMS_ITS | Encounter Summary ---
Author Organization [facility] Address [address] 7t [place] [address] Care Team Providers Care Service Restorer Emergency Name Role Phone Name, Luis ECHEVARRIA Primary Care Provider [phone] Encounter Details Date Type Department Care Team (Latest Contact Info) Description 04/06/2021 Abstract [facility] CONVERSIONS Dental, Provider, DDS Social History Tobacco [...] Description 12/28/2024 3:00 PM EDT Office Visit [facility] ADULT DENTAL [address] [place] [address] WilmaEmmanuelAmelia [address] [place] [address] documented as of this encounter Visit Diagnoses Not on filedocumented in this encounter Care Teams Service Restorer Emergency Relationship Specialty Start Date End Date Name, MD Luis [address] [place] [address] PCP - General Family Medicine 09/05/15 documented as of this encounter
== END 2024-11-12 10:42 | disposition home or self-care (01) ==
LOC: HO.US 10:41
PROVIDERS: PCP Internal Medicine Geriatric Medicine; Visit Provider Obstetrics & Gynecology
DX: D25.9 Leiomyoma of uterus, unspecified (principal)
CPT/HCPCS: 76830; 76856

== ENCOUNTER → 2024-11-12 10:43 | Outpatient (BNV) | payer MEDICAID, SELFPAY | PROVIDERS: PCP Internal Medicine Geriatric Medicine; Visit Provider Radiology Diagnostic Radiology | DX: D25.9 Leiomyoma of uterus, unspecified (principal); N83.202 Unspecified ovarian cyst, left side | CPT/HCPCS: 76856 ==

== ENCOUNTER 2024-12-24 08:48 | Outpatient (AMB) | payer MEDICAID, SELFPAY ==
[2024-12-24 08:53] VITALS: BP 112/68; BMI 26.9
--- NOTE | 2024-12-24 08:53 | A.OFFVIS_ITS ---
Vital Signs 12/24/24 08:53 Height 4 ft 11 in Weight 133 lb BMI 26.9 BP 112/68 Intake Visit Reasons: US follow up Intake Note: c/o of rt breast rash Furniture Salesperson Required: Yes Furniture Salesperson Language: Air Cargo Specialist Services: Furniture Salesperson Present (in person) Furniture Salesperson Name: Annel COMBS Information Interpreted: non-clinical & clinical Fuel Handler: Fuel Handler Present (Annel COMBS) Accompanied by: Self / Same As Patient Allergies acetaminophen (Percocet) Adverse Reaction (Unknown, Verified 12/24/24 08:58) stomach pain oxycodone (Percocet) Adverse Reaction (Unknown, Verified 12/24/24 08:58) stomach pain wheat/egg Allergy (Unknown, Uncoded 12/24/24 08:58) throat irritation, stomach upset Is last menstrual period known: No (mirena) HPI Comments Details: Presenting for follow-up ultrasound regarding uterine myoma seen on previous pelvic ultrasound. The patient is doing well with no complaints no abnormal uterine bleeding, pelvic pressure or pain. Pelvic ultrasound done recently showed the following: Uterus 9.8 x 5.0 x 5.2 cm. Endometrium 6 mm. IUD in normal position. 2.3 x 2.5 fundal fibroid noted. Small volume free fluid in cul-de-sac. Right ovary 2.5 x 1.5 x 1.5 cm. No significant focal abnormality. Left ovary 4.2 x 3.2 x 3.6 cm. 3.2 x 3.4 cm simple cyst. In addition, the patient has been complaining of right areolar irritation/itching over the last few months no associated breast lumps or nipple discharge Last screening mammogram in 03/27 was BI-RADS 1 [facility] Medical History Bilateral nephrolithiasis Urinary, incontinence, stress female Urgency of micturition Renal stone IBS (irritable colon syndrome) GERD (gastroesophageal reflux disease) Irritable bowel Acid reflux Surgical History Hx of section History of esophagogastroduodenoscopy (EGD) Family History Sister Breast cancer Social History Household Members: Children Housing: Apartment Are you a primary child day care teacher to a significant other at home: No Do you presently have visiting nurse or other home services: No Alcohol intake: never Patient Tobacco Use Status: Never used Tobacco service: No Current occupational status: employed 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 Gender identity: Female Female Reproductive History Menstrual Age of Menarche: 14 Review of Systems Const All systems reviewed & are unremarkable except as noted in HPI and below Reports as per HPI and Reports no additional complaints GI Reports no additional complaints Reports no additional complaints Physical Exam Vital Signs: Last Vital Signs BP 112/68 12/24/24 08:53 BMI result Body Mass Index 26.9 Chest Chest palpation & inspection: normal inspection of the chest Breast/axilla inspection: inspection of breasts abnormal (Right areola inflamm ation, right breast within normal, left breast wnl) Assessment & Plan Assessment & Plan (1) Uterine myoma: Code(s): D25.9 - Leiomyoma of uterus, unspecified Category: Medical Plan: Discussed with the patient the findings on pelvic ultrasound & the risk of myosarcoma; in addition reviewed with the patient that malignancy and pre malignancy cannot be ruled out without hysterectomy for pathological evaluation ; furthermore, explained to the patient the limitation of pelvic ultrasound and endometrial biopsy in the setting. Discussed with the patient the options of treatment including expectant management versus hysterectomy; the pros and cons, risks benefits of each approach were discussed with the patient including the fact that in cases of myosarcoma, surgical treatment can lead to early diagnosis and positively affects the prognosis; after further discussion, the patient decided to proceed with expectant management. Will repeat pelvic ultrasound periodically. Instructions given to patient to call in case any of the following occurs: pressure symptoms, abnormal uterine bleeding, pelvic pain; and to schedule a 12 months pelvic ultrasound (order placed) and a follow-up appointment . All ques tions answered, the patient verbalized understanding and agreed with the plan . (2) Breast inflammation: Comment: Right areola Code(s): N61.0 - Mastitis without abscess Category: Medical Plan: Discussed with the patient the finding on breast exam right areolar inflammation possible causes including inflammatory changes , eczema or inflammatory breast cancer were discussed with the patient. Diagnostic right breast mammogram ordered and referral general surgery was placed. Instructed the patient to call our office back in case a referral appointment is not scheduled, missed or canceled so that we will assist on rescheduling another appointment, the patient verbalized understanding agreed with the plan. Orders: Orders US pelvic and transvaginal Today D25.9 - Leiomyoma of uterus, unspecified MM tomosynthesis diagnostic RT Today N61.0 - Mastitis without abscess Referrals General Surgery Referral N61.0 - Mastitis without abscess Coding Level of Care Code Est Pt Level 3 (94996) Diagnoses Uterine myoma D25.9 Breast inflammation N61.0
--- OUTSIDE RECORDS SUMMARY | 2024-12-24 09:15 | XMS_ITS | Encounter Summary ---
Author Organization [facility] Address [address] [facility] 7[address] [place] [address] Care Team Providers Care Vegetable Farmworker Name Role Phone Name, Luis ECHEVARRIA Primary Care Provider [phone] Encounter Details Date Type Department Care Team (Latest Contact Info) Description 06/15/2019 Abstract [facility] CONVERSIONS Dental, Provider, DDS Social History [...] Description 12/28/2024 3:00 PM EDT Office Visit [facility] ADULT DENTAL [address] [place] [address] WilmaEmmanuelAmelia [address] [place] [address] documented as of this encounter Visit Diagnoses Not on filedocumented in this encounter Care Teams Vegetable Farmworker Relationship Specialty Start Date End Date Name, MD Luis [address] [place] [address] PCP - General Family Medicine 09/05/15 documented as of this encounter
== END 2024-12-24 09:17 | disposition home or self-care (01) ==
LOC: HO.HWS 08:48
PROVIDERS: PCP Internal Medicine Geriatric Medicine; Visit Provider Obstetrics & Gynecology
DX: D25.9 Leiomyoma of uterus, unspecified (principal); N61.0 Mastitis without abscess
CPT/HCPCS: 99213

== ENCOUNTER → 2024-12-24 08:48 | Outpatient (BNVA) | payer MEDICAID, SELFPAY | PROVIDERS: PCP Internal Medicine Geriatric Medicine; Visit Provider Obstetrics & Gynecology | DX: D25.9 Leiomyoma of uterus, unspecified (principal); N61.0 Mastitis without abscess | CPT/HCPCS: 99212 ==

== ENCOUNTER 2025-01-31 15:06 | Outpatient (AMB) | payer MEDICAID, SELFPAY ==
--- NOTE | 2025-01-31 15:11 | MHC.OFFVIS ---
Vital Signs 01/31/25 15:19 Height 4 ft 11 in Weight 139 lb BMI 28.1 BP 117/57 L Blood Pressure Location Lt brachial Position Sitting Pulse 75 Intake Visit Reasons: Mastitis without abscess Intake Note: Patient is seen in office for evaluation of the breast. Pt c/o: right breast is very itchy around the nipple area for the past, when itchy has nipple discharge feels relieves pressure denies redness, infection, discoloration, discharge, no prior breast surgery, fm hx breast cancer- sister @ 40yrs old mm sche:04/01/25 Engine Cleaner Required: Yes Engine Cleaner Language: Waste Cotton Cleaner Services: Engine Cleaner Present Engine Cleaner Name: Guillermina COMBS Information Interpreted: clinical only Route Delivery Service Driver: Route Delivery Service Driver Present Accompanied by: Self / Same As Patient Allergies acetaminophen (Percocet) Adverse Reaction (Unknown, Verified 01/31/25 15:18) stomach pain oxycodone (Percocet) Adverse Reaction (Unknown, Verified 01/31/25 15:18) stomach pain wheat/egg Allergy (Unknown, Uncoded 01/31/25 15:18) throat irritation, stomach upset Medication List - Last Reconciled 02/06/25 by Moy Norris MD atorvastatin 40 mg PO DAILY cholecalciferol (vitamin D3) (Vitamin D3) 25 mcg PO DAILY iron,carbonyl-vitamin C 65 mg iron- 125 mg (Vitron-C) 1 tab PO DAILY levonorgestrel (Mirena) 21 mcg intrauterine DAILY HPI Comments Details: 44-year-old female patient presenting for evaluation of complain of itchy nipples. The symptoms are intermittent and occasionally result in increased pressure behind the nipple. She occasionally needs to squeeze the nipple to relieve the pressure. She reports some whitish discharge when this occurs. After she developed a discharge, the nipple pressure is relieved and she can go several weeks or months without any additional symptoms. She denies any bleeding from the nipples or surrounding redness in the skin. She does not experience pain in the nipples or other parts of the breast. Her family history is significant for a sister with breast cancer at the age of 40. She denies a family history of ovarian cancer. Her most recent mammogram of 03/30/2024 revealed no mammographic evidence of malignancy (BI-RADS 1). She denies previous history of breast problems or breast surgeries. She is . [facility] Medical History Bilateral nephrolithiasis Urinary, incontinence, stress female Urgency of micturition Renal stone IBS (irritable colon syndrome) GERD (gastroesophageal reflux disease) Irritable bowel Acid reflux Surgical History Hx of section History of esophagogastroduodenoscopy (EGD) Family History Sister Breast cancer, Onset Age: 40 Social History Household Members: Children Housing: Apartment Are you a primary restorative care technician to a significant other at home: No Do you presently have visiting nurse or other home services: No Alcohol intake: never Patient Tobacco Use Status: Never used Tobacco service: No Current occupational status: employed 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 Gender identity: Female Female Reproductive History Menstrual Age of Menarche: 14 Review of Systems Const All systems reviewed & are unremarkable except as noted in HPI and below Physical Exam Vital Signs: Last Vital Signs Pulse 75 01/31/25 15:19 BP 117/57 L 01/31/25 15:19 BMI result Body Mass Index 28.1 Const General: cooperative and no acute distress Nutritional Appearance: well nourished Orientation/consciousness: patient oriented x3 Limitations: no limitations HEENT Head: Yes normocephalic and Yes atraumatic Ears: hearing grossly normal bilaterally Chest Other: Left breast: No skin change, no nipple retraction, no nipple discharge, no palpable mass, no enlarged lymph nodes. Right breast: No skin change, no nipple retraction, no nipple discharge, no palpable mass, no enlarged lymph nodes Resp Effort & Inspection: normal respiratory effort, no audible wheezes, no cough and no respiratory distress Cardio Jugular venous distension: no JVD GI Inspection: Yes normal to inspection Skin Other: Warm, dry, no rash Neuro General: patient oriented x3 Extrem General: Yes no clubbing, cyanosis or edema Assessment & Plan Assessment & Plan (1) Family history of breast cancer: Code(s): Z80.3 - Family history of malignant neoplasm of breast Category: Medical (2) Galactorrhea: Comment: Right Code(s): N64.3 - Galactorrhea not associated with childbirth Category: Medical Plan 44-year-old female patient presenting with complaints of itchy nipples with a occasional discharge when the nipples were squeezed. Her most recent mammogram revealed no suspicious findings in either breast. She is scheduled for her annual mammogram on 04/01/2025. Examination today revealed no suspicious findings and no evidence of discharge with the nipple. No enlarged lymph nodes were appreciated as well. We will await her annual mammogram results and I have asked her to return in approximately 6 months for follow-up breast examination. She is welcome to call sooner for any new concerns. Coding Level of Care Code New Pt Level 4 (80526) Diagnoses Family history of breast cancer Z80.3 Galactorrhea N64.3
--- OUTSIDE RECORDS SUMMARY | 2025-01-31 15:11 | XMS_ITS | Encounter Summary ---
Author Organization [facility] Address [address] [place] [address] Phone Care Team Providers Care Armoring Machine Operator Name Role Phone Name, Luis ECHEVARRIA Primary Care Provider [phone] Encounter Details Date Type Department Care Team (Late st Contact Info) Description 02/02/2021 Procedure Pass [facility] Endoscopy Admitting Dept Virtual Department [address] [place] [address] Social History Tobacco Use Types Packs/Day Years Used Date Smoking Tobacco: Never Smokeless Tobacco: Never Alcohol Use Standard Drinks/Week Comments Yes 0 (1 standard drink = 0.6 oz pur e alcohol) once every 3 months Comments No Sex and Gender Information Value Date Recorded Sex Assigned at Female 02/29/2020 5:19 PM EDT Legal Sex Female 9:20 PM EDT Gender Identity Female 02/29/2020 5:19 PM EDT Sexual Orientation Don't know 11/04/2024 10 :26 PM EDT Sexual Orientation Straight 11/04/2024 10 :26 PM EDT documented as of this encounter Plan of Treatment Not on file documented as of this encounter Visit Diagnoses Not on filedocumented in this encounter Additional Health Concerns Infection Onset Date Last Indicated Resolved Time CoV-Risk Comment:Per Ambulatory Triage Form 06/19/2021 06/20/202106/30 1:22 AM EST documented as of this encounter Care Teams Armoring Machine Operator Relationship Specialty Start Date End Date Name, MD Luis [address] [place] [address] PCP - General 02/29/20 documented as of this encounter Additional Source Comments The information contained in this document represents components of the legal health record. It is not the complete legal health record.[facility]
--- OUTSIDE RECORDS SUMMARY | 2025-01-31 15:11 | XMS_ITS | Encounter Summary ---
Author Organization [facility] Address [address] [place] [address] Care Team Providers Care Clinical Investigator Name Role Phone Name, Luis ECHEVARRIA Primary Care Provider [phone] Encounter Details Date Type Department Care Team (Latest Contact Info) Description 06/15/2019 Abstract [facility] CONVERSIONS Dental, Provider, DDS Social History Tobacco [...] Upcoming Encounters Date Type Department Care Team ( st Contact Info) Description 02/08/2025 8:00 AM EDT Office Visit [facility] ADULT DENTAL [address] [place] [address] Hermilo Munroe DDS [address] [place] [address] 07/11/2025 3:00 PM EST Office Visit [facility] ADULT DENTAL [address] [place] [address] Wilma, Amelia [address] [place] [address] documented as of this encounter Visit Diagnoses Not on filedocumented in this encounter Care Teams Clinical Investigator Relationship Specialty Start Date End Date Name, MD Luis [address] [place] [address] PCP - General Family Medicine 09/05/15 documented as of this encounter
[2025-01-31 15:19] VITALS: BP 117/57; PULSE 75; BMI 28.1
== END 2025-01-31 15:39 | disposition home or self-care (01) ==
LOC: HO.HGS 15:07
PROVIDERS: PCP Internal Medicine Geriatric Medicine; Visit Provider Surgery
DX: Z80.3 Family history of malignant neoplasm of breast (principal); N64.3 Galactorrhea not associated with childbirth
CPT/HCPCS: 99204

== ENCOUNTER → 2025-01-31 15:06 | Outpatient (BNVA) | payer MEDICAID, SELFPAY | PROVIDERS: PCP Internal Medicine Geriatric Medicine; Visit Provider Surgery | DX: N61.0 Mastitis without abscess (principal); N64.3 Galactorrhea not associated with childbirth; Z80.3 Family history of malignant neoplasm of breast | CPT/HCPCS: 99202 ==

== ENCOUNTER 2025-03-12 12:23 | Outpatient (REF) | payer MEDICAID, SELFPAY ==
--- NOTE | ~2025-03-12 | US_ITS ---
EXAMINATION(S): MM DIAGNOSTIC DIGITAL BREAST TOMOSYNTHESIS, BILATERAL Targeted ultrasound of the right breast CLINICAL INFORMATION: Reason for Exam-N61.0 - Mastitis without abscess According to the patient: Right nipple itchiness, sometimes associated with white discharge. Patient denies history of breast redness or any treatment with antibiotics. COMPARISON: Comparison made to multiple prior, most recent March 30, 2024, and most remote November 05, 2021. TECHNIQUE: Digital breast tomosynthesis is performed in both the mediolateral oblique and craniocaudal views along with computer-aided detection (CAD). Synthesized 2D images are generated from the tomosynthesis. FINDINGS: BREAST COMPOSITION: The breasts are heterogeneously dense, which may obscure small masses (ACR BI-RADS breast composition Category c). RIGHT BREAST: No significant masses, suspicious calcifications or other abnormalities are seen. In particular, no suspicious findings in the vicinity of the nipple areola complex. Targeted ultrasound of the right breast was performed in the region of the nipple and subareolar region. No masses, dilated ducts or abnormal vascularity with color Doppler evaluation. LEFT BREAST: No significant masses, suspicious calcifications or other abnormalities are seen. US/US breast RT limited mamm only IMPRESSION: RIGHT BREAST: Negative, no evidence of malignancy. Clinical follow-up is recommended. Otherwise, normal interval follow-up is recommended in 12 months. LEFT BREAST: Negative, no mammographic evidence of malignancy. Normal interval follow-up is recommended in 12 months. ASSESSMENT: BI-RADS 1 - Negative RECOMMENDATION: 1. Patient should be managed based on the clinical impression. 2. Otherwise, routine annual screening mammography. Results were provided to the patient at time of visit by the technologist. This patient's information was entered into a reminder system with a target due date for their next mammogram. Electronically signed by: Bonifacio Zepeda MD 03/12/2025 01:54 PM EDT
--- OUTSIDE RECORDS SUMMARY | 2025-03-12 14:47 | XMS_ITS | Clinical Summary ---
Author Organization [facility] Address [address] [place] [address] Phone Care Team Providers Care Program Director/Air Personality Name Role Phone Name, Luis ECHEVARRIA Primary Care Provider [phone] Allergies Active Allergy Reactions Criticality Noted Date Comments Egg 02/29/2020 Milk 12/03/2020 [place] 12/03/2020 Peanut 02/29/2020 Oxycodone-Acetaminophen 08/29/2021 Wheat 12/03/2020 Medications ferrous sulfate 143 mg (45 mg [employer] [place] iron) TbER Take 143 mg by mouth daily. Active cholecalciferol (VITAMIN D3) 25 MCG (1,000 unit) tablet Take 1,000 Units by mouth daily. Active simvastatin (ZOCOR) 40 MG tablet Take 40 mg by mouth nightly at bedtime. Active azelastine (OPTIVAR) 0.05 % ophthalmic solution Place 1 drop into each eye 2 (two) times a day. 6 mL 12 1 Active triamcinolone acetonide 0.1 % ointment Apply topically 2 (two) times a day. 30 g 1 4 Active Active Problems No known active problems Social History Tobacco Use Types Packs/Day Years Used Date Smoking Tobacco: Never Smokeless Tobacco: Never Alcohol Use Standard Drinks/Week Comments Yes 0 (1 standard drink = 0.6 oz pur e alcohol) once every 3 months Education Answer Date Recorded Are you interested in more education? Not on braeden e 10/29/2022 Are you concerned about learning? Not on file 10/29/2022 No 10/29/2022 No 10/29/2022 Digital Access Answer Date Recorded No 11/26/2022 No 11/26/2022 No 11/26/2022 Reliable internet access at home? Not on file 11/26/2022 Device with a working camera? Not on file Intimate Partner Violence Answer Date R ecorded Are you denied basic needs s uch as food, clothing, or medical care? No 07/03/2024 In the past 12 months have y ou been in a relationship with a person who hurts, threatens, or tries to control you? No 07/03/2024 Are you denied basic needs s uch as food, clothing, or medical care? No 07/03/2024 In the past 12 months have y ou been in a relationship with a person who hurts, threatens, or tries to control you? No 07/03/2024 Comments No Sex and Gender Information Value Date Recorded Sex Assigned at Female 02/29/2020 5:19 PM EDT Legal Sex Female 9:20 PM EDT Gender Identity Female 02/29/2020 5:19 PM EDT Sexual Orientation Don't know 11/04/2024 10 :26 PM EDT Sexual Orientation Straight 11/04/2024 10 :26 PM EDT Last Filed Vital Signs Vital Sign Reading Time Taken Comments Blood Pressure 114/75 07/03/2024 11:16 PM EST Pulse 74 07/03/2024 11:16 PM EST Temperature 36.8 C (98.2 F) 07/03/2024 11:16 PM EST Respiratory Rate 18 07/03/2024 11:16 PM EST Oxygen Saturation 99% 07/03/2024 11:16 PM EST Inhaled Oxygen Concentration - - Weight 60.8 kg (134 lb) 11/05/2024 1:47 PM EDT Height 149.9 cm (4' 11 ) 11/05/2024 1:47 PM EDT Body Mass Index 27.06 11/05/2024 1:47 PM EDT Plan of Treatment Health Maintenance Due Date Last Done Comments DEPRESSION SCREENING 1993 HEPATITIS C SCREENING 09/19/1999 HIV ONE-TIME SCREENING (18-65 YEARS) 09/19/1999 PAP SMEAR 2002 Adult Td,Tdap Booster 04/14/2022 04/14/2012 SCREENING FOR DIABETES 12/30/2024 12/30/2021 INFLUENZA VACCINE (#1) 2025 , 05/04/2017, 10/22/2015, Additional history exists COVID-19 VACCINE (2024- season) 2025 10/27/2020, 09/29/2020 MAMMOGRAM 03/18/2025 03/18/2023 SMOKING STATUS SCREENING (Once After 26 Yrs) Completed 08/29/2021 HEPATITIS A VACCINES Aged Out No long er eligible based on patient's age to complete this topic HIB VACCINES Aged Out No longer eligi ble based on patient's age to complete this topic MENINGOCOCCAL VACCINES (ACWY) Aged Out No longer eligible based on patient's age to complete this topic MENINGOCOCCAL VACCINES (B) Aged Out N o longer eligible based on patient's age to complete this topic PNEUMOCOCCAL VACCINES (0-49 years) Aged Out No longer eligible based on patient's age to complete this topic Medical Devices Not on file Insurance [facility] [address] [place] [address] [place] [id number] [facility] [employer] [facility] [employer] [employer] [employer] [facility] [address] [place] [address] [address] [place] [id number] [facility] [employer] [facility] [employer] ACO Care Teams Program Director/Air Personality Relationship Specialty Start Date End Date Name, MD Luis [address] [place] [address] PCP - General 02/29/20 Additional Source Comments The information contained in this document represents components of the legal health record. It is not the complete legal health record.[facility]
--- OUTSIDE RECORDS SUMMARY | 2025-03-12 14:47 | XMS_ITS | Encounter Summary ---
Author Organization [facility] Address [address] [place] [address] Care Team Providers Care Demand Manager Name Role Phone Name, Luis ECHEVARRIA Primary Care Provider [phone] Reason for Visit * Reason Comments Med Refill Encounter Details Date Type Department Care Team ([facility] st Contact Info) Description 10/10/2024 Refill [facility] MEDICINE [address] [place], [place] [phone] Name, MD Luis [address] [place] [address] Social History Tobacco Use Types Packs/Day Years [...] Care Team (Late st Contact Info) Description 03/22/2025 8:00 AM EDT Office Visit [facility] ADULT DENTAL [address] [place] [address] Hermilo Munroe DDS [address] [place] [address] 07/11/2025 3:00 PM EST Office Visit [facility] ADULT DENTAL [address] [place] [address] Amelia Dillon [address] [place] [address] documented as of this encounter Visit Diagnoses Not on filedocumented in this encounter Additional Health Concerns Assessment Noted Time PHQ-9 Depression Total Score: 0 08/12/19 24 9:27 AM EST documented as of this encounter Care Teams Demand Manager Relationship Specialty Start Date End Date Name, MD Luis [address] [place] [address] PCP - General Family Medicine 09/05/15 documented as of this encounter
--- OUTSIDE RECORDS SUMMARY | 2025-03-12 14:47 | XMS_ITS | Encounter Summary ---
Author Organization [facility] Address [address] [place] [address] Care Team Providers Care Fbi Special Agent Name Role Phone Name, Luis ECHEVARRIA Primary Care Provider [phone] Encounter Details Date Type Department Care Team (Latest Contact Info) Description 06/15/2019 Abstract [facility] CONVERSIONS Dental, Provider, DDS Social [...] Care Team ( st Contact Info) Description 03/22/2025 8:00 AM EDT Office Visit [facility] ADULT DENTAL [address] [place] [address] Hermilo Munroe DDS [address] [place] [address] 07/11/2025 3:00 PM EST Office Visit [facility] ADULT DENTAL [address] [place] [address] Wilma, Amelia [address] [place] [address] documented as of this encounter Visit Diagnoses Not on filedocumented in this encounter Care Teams Fbi Special Agent Relationship Specialty Start Date End Date Name, MD Luis [address] [place] [address] PCP - General Family Medicine 09/05/15 documented as of this encounter
--- OUTSIDE RECORDS SUMMARY | 2025-03-12 14:47 | XMS_ITS | Encounter Summary ---
Author Organization [facility] Address [address] [place] [address] Phone Care Team Providers Care Operations Specialist Name Role Phone Name, Luis ECHEVARRIA Primary Care Provider [phone] Reason for Referral * MRI/CAT Scan - Closed Specialty Diagnoses / Procedures Referred By Geeta morales Referred To Contact Radiology Diagnoses Other spondylosis with radiculopathy, cervical region Procedures MRI Cervical Spine Mari Suggs PA [address] [place] [address] Phone: tel: [email or web address] Referral ID Status Reason Start Date Expiration Date Visits Re quested Visits Authorized [id number] Closed 10/22/2024 10/22/2025 1 1 Encounter Details Date Type Department Care Team (Latest Contact Info) Description 10/22/2024 Transcribe Orders Virtual Department [address] [place] [address] Mari Suggs PA [address] [place] [address] [email or web address] Other spondylosis with radiculopathy, cervical region (Primary Dx) Social History Tobacco Use Types Packs/Day Years [...] on file documented as of this encounter Results * MRI CERVICAL SPINE (NEURO) FOCUS WITHOUT CONTRAST (11/11/2024 7:39 AM EDT) Anatomical Region Laterality Modality C-spine Magnetic Resonan ce 11/13/2024 4:37 PM EDT Impressions 11/13/2024 4:46 PM EDT 1. Degenerative disc disease and uncovertebral hypertrophy at C5-6 and C6-7. 2. Mild spinal canal stenosis and mild right and moderate left foraminal stenosis at C5-C6. 3. Mild spinal canal stenosis and moderate left foraminal stenosis at C6-7. Narrative 11/13/2024 4:46 PM EDT MRI CERVICAL SPINE (NEURO) FOCUS WITHOUT CONTRAST Referring clinician's provided indication for this examination in Epic: Outside Radiology Order; spondylosis TECHNIQUE: MRI CERVICAL SPINE (NEURO) FOCUS WITHOUT CONTRAST Multi-sequence, multi-planar MRI of the cervical spine was performed without intravenous contrast. COMPARISON: FINDINGS: CERVICAL SPINE: Alignment and Vertebrae: Straightening of the cervical lordosis. No compression fracture. Marrow: No bone marrow replacing lesion. Discs and Endplates: Multilevel disc desiccation. Mild disc height loss at C5-6 and C6-7. No endplate edema. Spinal Cord: No spinal cord compression or signal abnormality. Imaged posterior fossa structures are normal. Soft Tissue: Normal. No prevertebral edema. Findings by level: C2-C3: No spinal canal or foraminal stenosis. C3-C4: Trace posterior disc bulge. No spinal canal or foraminal stenosis. C4-C5: Trace posterior disc bulge and minimal uncovertebral hypertrophy. No spinal canal or foraminal stenosis. C5-C6: Posterior disc osteophyte complex and uncovertebral hypertrophy. Mild spinal canal stenosis. Mild right and moderate left foraminal stenosis. C6-C7: Posterior disc osteophyte complex and uncovertebral hypertrophy. Mild spinal canal stenosis. Moderate left foraminal stenosis. C7-T1: No spinal canal or foraminal stenosis. Procedure Note Rey Delvalle MD - 11/13/2024 MRI CERVICAL SPINE (NEURO) FOCUS WITHOUT CONTRAST Referring clinician's provided indication for this examination in [facility]:Outside Radiology Order; spondylosis TECHNIQUE: MRI CERVICAL SPINE (NEURO) FOCUS WITHOUT CONTRAST Multi-sequence, multi-planar MRI of the cervical spine was performedwithout intravenous contrast. COMPARISON: FINDINGS: CERVICAL SPINE: Alignment and Vertebrae: Straightening of the cervical lordosis. Nocompression fracture. Marrow: No bone marrow replacing lesion. Discs and Endplates: Multilevel disc desiccation. Mild disc height loss atC5-6 and C6-7. No endplate edema. Spinal Cord: No spinal cord compression or signal abnormality. Imagedposterior fossa structures are normal. Soft Tissue: Normal. No prevertebral edema. Findings by level: C2-C3: No spinal canal or foraminal stenosis. C3-C4: Trace posterior disc bulge. No spinal canal or foraminalstenosis. C4-C5: Trace posterior disc bulge and minimal uncovertebral hypertrophy.No spinal canal or foraminal stenosis. C5-C6: Posterior disc osteophyte complex and uncovertebral hypertrophy.Mild spinal canal stenosis. Mild right and moderate left foraminalstenosis. C6-C7: Posterior disc osteophyte complex and uncovertebral hypertrophy.Mild spinal canal stenosis. Moderate left foraminal stenosis. C7-T1: No spinal canal or foraminal stenosis. IMPRESSION: 1. Degenerative disc disease and uncovertebral hypertrophy at C5-6 andC6-7. 2. Mild spinal canal stenosis and mild right and moderate left foraminalstenosis at C5-C6. 3. Mild spinal canal stenosis and moderate left foraminal stenosis atC6-7. Mari HANNAH MR XSPECIALTY Final Resul t documented in this encounter Visit Diagnoses Diagnosis Other spondylosis with radiculopathy, cervical region- Primary Other spondylosis with radiculopathy, cervical region documented in this encounter Care Teams Operations Specialist Relationship Specialty Start Date End Date Name, MD Luis [address] [place] [address] PCP - General 02/29/20 documented as of this encounter Additional Source Comments The information contained in this document represents components of the legal health record. It is not the complete legal health record.[facility]
--- OUTSIDE RECORDS SUMMARY | 2025-03-12 14:47 | XMS_ITS | Encounter Summary ---
Author Organization [facility] Address [address] [place] [address] Care Team Providers Care Master Police Detective Name Role Phone Name, Luis ECHEVARRIA Primary Care Provider [phone] Encounter Details Date Type Department Care Team (Latest Contact Info) Description 04/06/2021 Abstract [facility] CONVERSIONS Dental, Provider, DDS Social History [...] Description 03/22/2025 8:00 AM EDT Office Visit [facility] ADULT DENTAL [address] [place] [address] Hermilo Munroe DDS [address] [place] [address] 07/11/2025 3:00 PM EST Office Visit [facility] ADULT DENTAL [address] [place] [address] Wilma, Amelia [address] [place] [address] documented as of this encounter Visit Diagnoses Not on filedocumented in this encounter Care Teams Master Police Detective Relationship Specialty Start Date End Date Name, MD Luis [address] [place] [address] PCP - General Family Medicine 09/05/15 documented as of this encounter
--- OUTSIDE RECORDS SUMMARY | 2025-03-12 14:47 | XMS_ITS | Encounter Summary ---
Author Organization [facility] Address [address] [place] [address] Phone Care Team Providers Care Rn Transport Name Role Phone Name, Luis ECHEVARRIA Primary Care Provider [phone] Encounter Details Date Type Department Care Team (Late st Contact Info) Description 02/02/2021 Procedure Pass [facility] Endoscopy Admitting Dept Virtual Department [address] [place] [address] Social History Tobacco Use Types Packs/Day Years [...] documented as of this encounter Care Teams Rn Transport Relationship Specialty Start Date End Date Name, MD Luis [address] [place] [address] PCP - General 02/29/20 documented as of this encounter Additional Source Comments The information contained in this document represents components of the legal health record. It is not the complete legal health record.[facility]
--- OUTSIDE RECORDS SUMMARY | 2025-03-12 14:47 | XMS_ITS | Encounter Summary ---
Author Organization [employer] Address [address] [place] [address] Care Team Providers Care Anesthesia Director Name Role Phone Name, Luis ECHEVARRIA Primary Care Provider [phone] Reason for Visit * Reason Comments Med Refill Encounter Details Date Type Department Care Team (Late st Contact Info) Description 06/29/2023 Refill [facility] [address] [place], [place] [phone] Rosa Perera MD [address] [place], [place] [phone] Sciatic leg pain Social History Tobacco Use [...] Description 03/22/2025 8:00 AM EDT Office Visit [facility] ADULT DENTAL [address] [place] [address] Hermilo Munroe DDS [address] [place] [address] 07/11/2025 3:00 PM EST Office Visit [facility] ADULT DENT[facility] [address] [place] [address] Amelia Dillon [address] [place] [address] documented as of this encounter Visit Diagnoses Diagnosis Sciatic leg pain documented in this encounter Additional Health Concerns Assessment Noted Time PHQ-9 Depression Total Score: 0 07/30/19 23 10:15 AM EST documented as of this encounter Care Teams Anesthesia Director Relationship Specialty Start Date End Date Name, MD Luis [address] [place] [address] PCP - General Family Medicine 09/05/15 documented as of this encounter
--- OUTSIDE RECORDS SUMMARY | 2025-03-12 14:47 | XMS_ITS | Encounter Summary ---
Author Organization [facility] Address [address] [place] [address] Care Team Providers Care Gear Lapping Machine Operator Name Role Phone Name, Luis ECHEVARRIA Primary Care Provider [phone] Encounter Details Date Type Department Care Team (Late st Contact Info) Description 03/12/2025 Orders Only [facility] External Provider, [facility] [place] Social History Tobacco Use Types Packs/Day Years [...] Description 03/22/2025 8:00 AM EDT Office Visit [facility] ADULT DENTAL [address] [place] [address] Hermilo Munroe DDS [address] [place] [address] 07/11/2025 3:00 PM EST Office Visit [facility] ADULT DENTAL [address] [place] [address] Wilma, Amelia [address] [place] [address] documented as of this encounter Procedures Procedure Name Priority Date/Time Associated Diagnosis Comments BI MAMMOGRAM DIAGNOSTIC TOMOSYNTHESIS BILATERAL Routine 03/12/2025 1:01 PM EDT documented in this encounter Results * BI Mammogram Diagnostic Tomosynthesis Bilateral (03/12/2025 1:01 PM EDT) Anatomical Region Laterality Modality Breast Bilateral Mammography 03/12/2025 1:01 PM EDT Narrative 03/12/2025 1:56 PM EDT [facility] [address] [place] [address] Mammography Report Signed Patient: Jen Marrero MR#: [id number] : 1980 Acct:[id number] Age/Sex: 44 / F ADM Date: 03/12/25 Loc: [facility] Attending Dr: Del Amador MD Ordering Physician: Del Amador MD Results: 1Negativ e Date of Service: 03/12/25 Follow Up: 1 Year From [facility] Mammogram Procedure(s): MM tomosynthesis diagnostic BI Accession Number(s): [id number] cc: Name,Luis ECHEVARRIA; Del Amador MD EXAMINATION(S): MM DIAGNOSTIC DIGITAL BREAST TOMOSYNTHESIS, BILATERAL Targeted ultrasound of the right breast CLINICAL INFORMATION: Reason for Exam-N61.0 - Mastitis without abscess According to the patient: Right nipple itchiness, sometimes associated with white discharge. Patient denies history of breast redness or any treatment with antibiotics. COMPARISON: Comparison made to multiple prior, most recent March 30, 2024, and most remote November 05, 2021. TECHNIQUE: Digital breast tomosynthesis is performed in both the mediolateral oblique and craniocaudal views along with computer-aided detection (CAD). Synthesized 2D images are generated from the tomosynthesis. FINDINGS: BREAST COMPOSITION: The breasts are heterogeneously dense, which may obscure small masses (ACR BI-RADS breast composition Category c). RIGHT BREAST: No significant masses, suspicious calcifications or other abnormalities are seen. In particular, no suspicious findings in the vicinity of the nipple areola complex. Targeted ultrasound of the right breast was performed in the region of the nipple and subareolar region. No masses, dilated ducts or abnormal vascularity with color Doppler evaluation. LEFT BREAST: No significant masses, suspicious calcifications or other abnormalities are seen. MM/MM tomosynthesis diagnostic BI IMPRESSION: RIGHT BREAST: Negative, no evidence of malignancy. Clinical follow-up is recommended. Otherwise, normal interval follow-up is recommended in 12 months. LEFT BREAST: Negative, no mammographic evidence of malignancy. Normal interval follow-up is recommended in 12 months. ASSESSMENT: BI-RADS 1 - Negative RECOMMENDATION: 1. Patient should be managed based on the clinical impression. 2. Otherwise, routine annual screening mammography. Results were provided to the patient at time of visit by the technologist. This patient's information was entered into a reminder system with a target due date for their next mammogram. Electronically signed by: Bonifacio Zepeda MD 03/12/2025 01:54 PM EDT Dictated By: Bonifacio Zepeda MD Signed By: <Electronically signed by Bonifacio Zepeda MD in OV> 03/12/25 1354 DD/ 1301 TD/TT: 03/12/25 1306 [employer] Hatcher[employer] Worker: Procedure Note Donotuseinterpreter, Image - 03/12/2025 [facility] [address] [place], [place] [address] Mammography Report Signed Patient: Jen Marrero MMR#: [id number] : 1980Acct:[id number] Age/Sex: 44 / FADM Date: 03/12/25 Loc: HO.MAMMO Attending Dr: Del Amador MD Ordering Physician: Del Amador MDResults: 1Negativ e Date of Service: 03/12/25Follow Up: 1 Year From Orig ina Mammogram Procedure(s): MM tomosynthesis diagnostic BI Accession Number(s): [id number] cc: Luis Mcclendon MD; Del Amador MD EXAMINATION(S): MM DIAGNOSTIC DIGITAL BREAST TOMOSYNTHESIS, BILATERAL Targeted ultrasound of the right breast CLINICAL INFORMATION: Reason for Exam-N61.0 - Mastitis without abscess According to the patient: Right nipple itchiness, sometimes associated with white discharge. Patient denies history of breast redness or any treatment with antibiotics. COMPARISON: Comparison made to multiple prior, most recent March 30, 2024, and most remote November 05, 2021. TECHNIQUE: Digital breast tomosynthesis is performed in both the mediolateral oblique and craniocaudal views along with computer-aided detection (CAD). Synthesized 2D images are generated from the tomosynthesis. FINDINGS: BREAST COMPOSITION: The breasts are heterogeneously dense, which may obscure small masses (ACR BI-RADS breast composition Category c). RIGHT BREAST: No significant masses, suspicious calcifications or other abnormalities are seen. In particular, no suspicious findings in the vicinity of the nipple areola complex. Targeted ultrasound of the right breast was performed in the region of the nipple and subareolar region. No masses, dilated ducts or abnormal vascularity with color Doppler evaluation. LEFT BREAST: No significant masses, suspicious calcifications or other abnormalities are seen. MM/MM tomosynthesis diagnostic BI IMPRESSION: RIGHT BREAST: Negative, no evidence of malignancy. Clinical follow-up is recommended. Otherwise, normal interval follow-up is recommended in 12 months. LEFT BREAST: Negative, no mammographic evidence of malignancy. Normal interval follow-up is recommended in 12 months. ASSESSMENT: BI-RADS 1 - Negative RECOMMENDATION: 1. Patient should be managed based on the clinical impression. 2. Otherwise, routine annual screening mammography. Results were provided to the patient at time of visit by the technologist. This patient's information was entered into a reminder system with a target due date for their next mammogram. Electronically signed by: Bonifacio Zepeda MD 03/12/2025 01:54 PM EDT RP Workstation: [id number] Dictated By: Bonifacio Zepeda MD Signed By: <Electronically signed by Bonifacio Zepeda MD in OV> 03/12/25 1354 DD/ 1301 TD/TT: 03/12/25 1306 Fish Hatchery Worker: [facility] External Provider IMG BI PROCEDURES Final Result documented in this encounter Visit Diagnoses Not on filedocumented in this encounter Additional Health Concerns Assessment Noted Time PHQ-9 Depression Total Score: 0 08/12/19 24 9:27 AM EST documented as of this encounter Care Teams Gear Lapping Machine Operator Relationship Specialty Start Date End Date Name, MD Luis [address] [place] [address] PCP - General Family Medicine 09/05/15 documented as of this encounter
--- OUTSIDE RECORDS SUMMARY | 2025-03-12 14:47 | XMS_ITS | Encounter Summary ---
Author Organization [facility] Address [address] [place] [address] Phone Care Team Providers Care Clinical Practitioner Name Role Phone Name, Luis ECHEVARRIA Primary Care Provider [phone] Encounter Details Date Type Department Care Team (Late st Contact Info) Description 08/28/2024 Ancillary Orders [facility], X-Ray - [address] [address] Mari Suggs PA [address] [place] [facility] [address] [place] [address] [email or web address] Cervicalgia (Primary Dx) Social History Tobacco Use Types [...] documented as of this encounter Results * XR CERVICAL SPINE 4-5 VIEWS (08/28/2024 11:11 AM EST) Anatomical Region Laterality Modality C-spine Computed Radiogr aphy 08/28/2024 5:03 PM EST Impressions 08/28/2024 5:04 PM EST Mild degenerative changes of the cervical spine with mild facet arthropathy and mild multilevel degenerative endplate changes, perhaps most notable at C5-6 with minor disc space narrowing at this level. No significant bony encroachment upon the neural foramina. Narrative 08/28/2024 5:04 PM EST XR CERVICAL SPINE 4-5 VIEWS Referring clinician's provided indication for this examination in [facility]: Pain COMPARISON: None Procedure Note Gold Boyer MD - 08/28/2024 XR CERVICAL SPINE 4-5 VIEWS Referring clinician's provided indication for this examination in [facility]:Pain COMPARISON: None IMPRESSION: Mild degenerative changes of the cervical spine with mild facetarthropathy and mild multilevel degenerative endplate changes, perhapsmost notable at C5-6 with minor disc space narrowing at this level. Nosignificant bony encroachment upon the neural foramina. Mari DICKERSON IMG XR SPINE Final Result documented in this encounter Visit Diagnoses Diagnosis Cervicalgia- Primary Cervicalgia documented in this encounter Care Teams Clinical Practitioner Relationship Specialty Start Date End Date Name, MD Luis [address] [place] [address] PCP - General 02/29/20 documented as of this encounter Additional Source Comments The information contained in this document represents components of the legal health record. It is not the complete legal health record.[facility]
--- OUTSIDE RECORDS SUMMARY | 2025-03-12 14:47 | XMS_ITS | Encounter Summary ---
Author Organization [facility] Address [address] [place] [address] Phone Care Team Providers Care Firewall Administrator Name Role Phone Name, Luis ECHEVARRIA Primary Care Provider [phone] Encounter Details Date Type Department Care Team (Late st Contact Info) Description 10/22/2024 Procedure Pass [facility], [address] [address] Social History Tobacco Use Types Packs/Day Years [...] on filedocumented in this encounter Care Teams Firewall Administrator Relationship Specialty Start Date End Date Name, MD Luis [address] [place] [address] PCP - General 02/29/20 documented as of this encounter Additional Source Comments The information contained in this document represents components of the legal health record. It is not the complete legal health record.[facility]
--- OUTSIDE RECORDS SUMMARY | 2025-03-12 14:47 | XMS_ITS | Encounter Summary ---
Author Organization [facility] Address [address] [place] [address] Phone Care Team Providers Care Director Peoples[employer] Name Role Phone Name, Luis ECHEVARRIA Primary Care Provider [phone] Encounter Details Date Type Department Care Team (Late st Contact Info) Description 02/29/2020 Procedure Pass [facility], Ct Scan - [address] [address] Social History Tobacco Use Types Packs/Day Years Used Date Smoking Tobacco: Never Alcohol Use Standard Drinks/Week Comments Yes 0 (1 standard drink = 0.6 oz pur e alcohol) socially Comments No Sex and Gender Information Value [...] documented as of this encounter Care Teams Director [employer] Relationship Specialty Start Date End Date Name, MD Luis [address] [place] [address] PCP - General 02/29/20 documented as of this encounter Additional Source Comments The information contained in this document represents components of the legal health record. It is not the complete legal health record.[facility]
--- OUTSIDE RECORDS SUMMARY | 2025-03-12 14:47 | XMS_ITS | Encounter Summary ---
Author Organization [facility] Address [address] [place] [address] Phone Care Team Providers Care Air Intelligence Specialist Name Role Phone Name, Luis ECHEVARRIA Primary Care Provider [phone] Encounter Details Date Type Department Care Team (Late st Contact Info) Description 11/14/2023 Ancillary Orders [facility], X-Ray - [facility] [address] [place] [address] Kamran Wang MD [address] [place] [address] [email or web address] Pain in left hip (Primary Dx) Social History Tobacco Use Types [...] with a working camera? Not on file Comments No Sex and Gender Information Value [...] as of this encounter Results * XR HIP 2 VW LEFT PLUS PELVIS (11/14/2023 10:46 AM EDT) Anatomical Region Laterality Modality Hip, Pelvis Computed Radiogr aphy 11/16/2023 1:17 AM EDT Impressions 11/16/2023 1:18 AM EDT Mild to moderate sacroiliac joint bony proliferative change. Hip joint spaces preserved. Narrative 11/16/2023 1:18 AM EDT XR HIP 2 VW LEFT PLUS PELVIS Referring clinician's provided indication for this examination in Epic: Pain REQUESTED INDICATION: Pain COMPARISON: CT ABDOMEN/PELVIS WITH CONTRAST FINDINGS: PELVIS: Pelvic ring intact. No displaced fracture. Degenerative changes of the lower lumbar spine, sacroiliac joints, and pubic symphysis. RIGHT HIP: No bone, joint, or soft tissue abnormality. LEFT HIP: No bone, joint, or soft tissue abnormality. Procedure Note Eda Del Rio MD - 11/16/2023 XR HIP 2 VW LEFT PLUS PELVIS Referring clinician's provided indication for this examination in Epic:Pain REQUESTED INDICATION: Pain COMPARISON: CT ABDOMEN/PELVIS WITH CONTRAST FINDINGS: PELVIS: Pelvic ring intact. No displaced fracture. Degenerative changes ofthe lower lumbar spine, sacroiliac joints, and pubic symphysis. RIGHT HIP: No bone, joint, or soft tissue abnormality. LEFT HIP: No bone, joint, or soft tissue abnormality. IMPRESSION: Mild to moderate sacroiliac joint bony proliferative change. Hip joint spaces preserved. Kamran Wang MD IMG XR PELVIS Final Result documented in this encounter Visit Diagnoses Diagnosis Pain in left hip- Primary Pain in left hip documented in this encounter Care Teams Air Intelligence Specialist Relationship Specialty Start Date End Date Name, MD Luis [address] [place] [address] PCP - General 02/29/20 documented as of this encounter Additional Source Comments The information contained in this document represents components of the legal health record. It is not the complete legal health record.[facility]
--- OUTSIDE RECORDS SUMMARY | 2025-03-12 14:47 | XMS_ITS | Encounter Summary ---
Author Organization [facility] Address [address] [place] [address] Phone Care Team Providers Care Music Agent Name Role Phone Name, Luis ECHEVARRIA Primary Care Provider [phone] Encounter Details Date Type Department Care Team (Latest Contact Info) Description 02/07/2020 Transcribe Orders Virtual Department [address] [place] [address] Nestor Figueroa MD [address] [facility] [address] [place] [address] [email or web address] Encounter for laboratory testing for COVID-19 virus (Primary Dx) Social History Tobacco Use Types [...] as of this encounter Visit Diagnoses Diagnosis Encounter for laboratory testing for COVID-19 virus- Primary documented in this encounter Additional Health Concerns Infection Onset Date Last Indicated Resolved Time CoV-Risk Comment:Per Ambulatory Triage Form 06/19/2021 06/20/202106/30 1:22 AM EST documented as of this encounter Care Teams Music Agent Relationship Specialty Start Date End Date Name, MD Luis [address] [place] [address] PCP - General 02/29/20 documented as of this encounter Additional Source Comments The information contained in this document represents components of the legal health record. It is not the complete legal health record.[facility]
--- OUTSIDE RECORDS SUMMARY | 2025-03-12 14:48 | XMS_ITS | Clinical Summary ---
Author Organization [facility] Address [address] 7[address] [place] [address] Care Team Providers Care Window Trimmer Apprentice Name Role Phone Name, Luis ECHEVARRIA Primary Care Provider [phone] Allergies Active Allergy Reactions Criticality Noted Date Comments Acetaminophen 12/31/2013 Other reaction(s): UPSET STOMACH Murcia Pod Extract 12/03/2020 Egg White (Egg Protein) 02/29/2020 Milk (Cow) 12/03/2020 Other 04/15/2023 Other reaction(s): eggs: rash Oxycodone 12/31/2013 Other reaction(s): UPSET STOMACH Oxycodone-Acetaminophen 08/29/2021 Peanut-Containing Drug Products 02/29/2020 Wheat 12/03/2020 Medications cetirizine (ZyrTEC) 10 MG tablet Take 10 mg by mouth in the morning. 06/28/20 22 Active [facility] B6 100 MG tablet TAKE 1 TABLET BY MOUTH EVERY DAY OTC DRUG NOT COVERED 11/05/19 22 Active Low-Ogestrel 0.3-30 MG-MCG tablet TAKE 1 TABLET BY MOUTH EVERY DAY FOR 84 DAYS 06/11/20 22 Active valACYclovir (Valtrex) 500 MG tabletIndications: Herpes Take 1 tablet by mouth twice a day 6 tablet 4 12/20/19 24 Active Additional Information Patient not taking.Reason: pt states not taking, Reported on 12/28/2024 cyclobenzaprine (Flexeril) 10 MG tabletIndications: Acute pain of right shoulder Take 1 tablet (10 mg) by mouth if needed in the morning, at noon, and at bedtime for muscle spasms for up to 10 days. 30 tablet 02/14/20 24 Active cholecalciferol (Vitamin D3) 25 MCG (1000 UT) tablet TAKE 1 TABLET BY MOUTH EVERY DAY 90 tablet 02/27/20 24 Active Diclofenac Sodium 1 % gelIndications:Sunshine mb pain, right,Sciatic leg pain apply (2G) by topical route 3 times every day to the affected area(s) 100 g 05/14/20 24 Active Additional Information Patient not taking.Reason: pt states not taking, Reported on 12/28/2024 triamcinolone (Kenalog) 0.1 % cream Apply topically if needed in the morning and at bedtime (pain and swelling). 30 g 2 06/20/20 24 Active Additional Information Patient not taking.Reason: pt states not taking, Reported on 12/28/2024 atorvastatin (Lipitor) 40 MG tabletIndications: Hyperlipidemia, unspecified hyperlipidemia type TAKE 1 TABLET BY MOUTH EVERY DAY 90 tablet 1 12/19/19 25 Active meloxicam (Mobic) 15 MG tabletIndications: Acute pain of right shoulder Take 1 tablet (15 mg) by mouth Once per day. 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 On exam evidence of muscle spasm Etiology? 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 On exam evidence of muscle spasm Etiology? Likely musculoskeletal Plan: NSAIDS, Muscle relaxant, PT eval pt requested [facility] in [place] Fractured dental christianity with loss of materi al 07/22/2023 Localized gingival recession, minimal 12/30/2022 Erosion of teeth, limited to enamel 12/30/2022 Dupuytren's contracture 07/30/2022 Hand pain 07/30/2022 Iron deficiency anemia due to chronic blood loss 07/30/2022 Radial styloid tenosynovitis 07/30/2022 Uterine leiomyoma 07/30/2022 Urge incontinence of urine 03/22/2018 Neck pain 09/05/2017 Backache 06/14/2017 Ganglion of hand 10/12/2016 Kidney stone 12/10/2015 Migule hematuria 11/24/2015 Depressive disorder 07/17/2013 Anemia 05/21/2013 Hyperlipidemia 10/23/2012 NICK (stress urinary incontinence, female) 2012 Resolved Problems Problem Noted Date Diagnosed Date Resolved Date Abnormal uterine bleeding 07/30/2022 Encounters Date Type Department Care Team Description 03/12/2025 Orders Only [facility] External Provider, [facility] 12/28/2024 3:00 PM EDT Office Visit [facility] [address] [place] [address] Amelia Dillon Abfraction (Primary Dx); Fractured dental christianity with loss of material; Sensitivity of root structure of tooth; Dental caries; Dental calculus; Localized gingival recession, minimal 12/18/2024 Refill [facility] [address] [place] [address] Name, MD Luis Hyperlipidemia, unspecified hyperlipidemia type from Last 3 Months Immunizations Immunization Administration Dates Next Due Influenza Injectable Quadriv [...] is your housing situation today? I have ottojohann wall 08/12/[address] you [...] Sign Reading Time Taken Comments Blood Pressure 124/72 12/28/2024 3:12 PM EDT Pulse 69 06/20/2024 2:21 PM EST Temperature 36.6 C (97.9 F) 06/20/2024 2:21 PM EST Respiratory Rate 16 06/20/2024 2:21 PM EST [...] Description 03/22/2025 8:00 AM EDT Office Visit [facility] [address] [place] [address] Hermilo Munroe DDS [address] [place] [address] 07/11/2025 3:00 PM EST Office Visit [facility] [address] [place] [address] Amelia Dillon [address] [place] [address] Health Maintenance Due Date Last Done Comments Disability Screening 1981 Alcohol/Substance Use Screening 1993 Family Planning (PISQ) 1996 HPV Vaccines (1 - 3-dose series) 1996 Hepatitis B Vaccines (1 of 3 - 19+ 3-dose series) 2000 Pap Smear 2002 Depression Screening 08/12/2024 08/12/2023, 08/12/19 24 SDOH Screening 08/12/2024 08/12/2023 COVID-19 Vaccine ( season) 2025 12/10/2021, 05/30/2021, 10/27/2020, Additional history exists Influenza Vaccine (#1) 2025 , 04/07/2022, 04/30/2021, Additional history exists Dental Oral Exam 06/30/2025 12/28/2024, , 12/30/2022, Additional history exists Dental Prophylaxis 06/30/2025 12/28/2024, 0 07/21/2023, 12/30/2022, Additional history exists Cervical Cancer Screening 12/22/2025 HPV/Cotest 12/22/2025 12/22/2020, 12/03, 09/03/2020, Additional history exists Tobacco Screening 12/28/2025 12/28/2024 Dental X-Ray: Bitewings 12/29/2025 12/29/19 25, 12/30/2022, 04/06/2021, Additional history exists Mammogram 03/12/2026 03/12/2025, 03/05, 09/30/2023, Additional history exists Dental X-Ray: Full Mouth 12/30/2027 025, 04/06/2021, 05/05/2015 Zoster Vaccines (1 of 2) 09/19/2031 DTaP/Tdap/Td [...] patient's age to complete this topic Meningococcal B Vaccine Aged Out No l onger eligible based on patient's age to complete this topic Meningococcal Vaccine Aged Out No dominga alicia eligible based on patient's age to complete this topic Pneumococcal Vaccine: Pediatrics (0 to 5 Years) and At-Risk Patients (6 to 49) Years Aged Out No longer eligible based on [...] TOMOSYNTHESIS BILATERAL Routine 03/12/2025 1:01 PM EDT PERIODIC ORAL EVALUATION - ESTABLISHED PATIENT Routine 12/28/2024 3:00 PM EDT CASE PRESENTATION, DETAILED AND EXTENSIVE TREATMENT PLANNING Routine 12/28/2024 3:00 PM EDT ORAL HYGIENE INSTRUCTIONS Routine 12/28/2024 3:00 PM EDT INTRAORAL - COMPLETE SERIES OF RADIOGRAPHIC IMAGES Routine 12/28/2024 3:00 PM EDT PROPHYLAXIS - ADULT Routine 12/28/2024 3 :00 PM EDT Dental calculus ZZZ HISTORICAL HEPATITIS C AB W/REFL TO HCV RNA, QN, PCR Routine 04/30/2022 11:36 AM EDT HIV 1/2 ANTIGEN/ANTIBODY, FOURTH GENERATION W/RFL Routine 04/30/2022 11:36 AM EDT ZZZ HISTORICAL HPV E6/E7 RFLX JENNIFER 16 18/45 Routine 12/22/2020 11:23 AM EDT from Last 3 Months or Most Recently Relevant to Health Maintenance Results * BI Mammogram Diagnostic Tomosynthesis Bilateral (03/12/2025 1:01 PM EDT) Anatomical Region Laterality Modality Breast Bilateral Mammography 03/12/2025 1:01 PM EDT Narrative 03/12/2025 1:56 PM EDT [facility] [address] [place] [address] Mammography Report Signed Patient: Jen Marrero MR#: [id number] : 1980 Acct:[id number] Age/Sex: 44 / F ADM Date: 03/12/25 Loc: HO.MAMMO Attending Dr: Del Amador MD Ordering Physician: Del Amador MD Results: 1Negativ e Date of Service: 03/12/25 Follow Up: 1 Year From Orig inal Mammogram Procedure(s): MM tomosynthesis diagnostic BI Accession Number(s): [id number] cc: Luis Mcclendon MD; Del Amador MD [...] 03/12/25 1354 DD/ 1301 TD/TT: 03/12/25 1306 Communication And Outreach Manager: Procedure Note Donotuseinterpreter, Image - 03/12/2025 [facility] [address] [place] [address] Mammography Report Signed Patient: Jen Marrero [facility]#: [id number] : 1980Acct:[id number] Age/Sex: 44 / FADM Date: 03/12/25 Loc: HO.MAMMO Attending Dr: Del Amador MD Ordering Physician: Del Amador MDResults: 1Negativ e Date of Service: 03/12/25Follow Up: 1 Year From [facility] ina Mammogram Procedure(s): MM tomosynthesis diagnostic BI Accession Number(s): [id number] cc: Name,Luis ECHEVARRIA; Del Amador MD EXAMINATION(S): [...] Zepeda MD 03/12/2025 01:54 PM EDT RP Dictated By: Bonifacio Zepeda MD Signed By: <Electronically signed by Bonifacio Zepeda MD in OV> 03/12/25 1354 DD/ 1301 TD/TT: 03/12/25 1306 Communication And Outreach Manager: [facility] External Provider IMG BI PROCEDURES Final Result * HEPATITIS C AB W/REFL TO HCV RNA, QN, PCR (04/30/2022 11:36 AM EDT) HEPATITIS C ANTIBODY NON-REACTI VE NON-REACT JEAN PIERRE CONVERTED LEGACY LABS INDEX 0.04 <1.00 CONVERTED LEGACY LABS Comment: HCV antibody was non-reactive. There is no laboratory evidence of HCV infection. In most cases, no further action is required. However, if recent HCV exposure is suspected, a test for HCV RNA (test code 36768) is suggested. For additional information please refer to http://education.Myze/faq/SGK96z7 (This link is being provided for informational/ educational purposes only.) 04/30/2022 11:3 6 AM EDT Luis Mcclendon MD HISTORICAL/NON ORDERABLE LABS Fi nal Result CONVERTED LEGACY LABS * HIV 1/2 ANTIGEN/ANTIBODY,FOURTH GENERATION W/RFL (04/30/2022 11:36 AM EDT) HIV-1/2 ANTIGEN AND ANTIBODIES, 4TH GENERATION W/ REFLEX NON-REACT JEAN PIERRE NON-REACT JEAN PIERRE CONVERTED LEGACY LABS Comment: HIV-1 antigen and HIV-1/HIV-2 antibodies were not detected. There is no laboratory evidence of HIV infection. PLEASE NOTE: This information has been disclosed to you from records whose confidentiality may be protected by state law. If your state requires such protection, then the state law prohibits you from making any further disclosure of the information without the specific written consent of the person to whom it pertains, or as otherwise permitted by law. A general authorization for the release of medical or other information is NOT sufficient for this purpose. For additional information please refer to http://Stratoscale.Myze/faq/AFE179 (This link is being provided for informational/ educational purposes only.) The performance of this assay has not been clinically validated in patients less than 2 years old. 04/30/2022 11:3 6 AM EDT us Luis Mcclendon MD LAB BLOOD ORDERABLES Final Resul t CONVERTED LEGACY LABS * HPV E6/E7 RFLX JENNIFER 16 18/45 (12/22/2020 11:23 AM EDT) HPV 16 RNA [facility] HPV 18/45 RNA [facility] HPV E6 E7 ADD [facility] HPV mRNA E6/E7 rflx Not Detected Not Detected [facility] Comment: Methodology: Director Nurses' Registry-Mediated Amplification This assay detects E6/E7 viral messenger RNA (mRNA) from 14 high-risk HPV types (16,18,31,33,35,39,45,51,52,56,58,59,66,68). The analytical performance characteristics of this assay have been determined by [employer]. The modifications have not been cleared or approved by the FDA. This assay has been validated pursuant to the CLIA regulations and is used for clinical purposes. For additional information, please refer to http://Stratoscale.Myze/faq/EFN460k5 (This link if provided for information/ educational purposes only.) THIS TEST WAS PERFORMED AT: [facility] [address] [place] [address] [address] [address] KARUNA ROGERS MD 12/22/2020 11:2 3 AM EDT us [place] HISTORICAL/NON ORDERABLE LABS Fi nal Result Performing Organization Address City/[facility]/ZIP Co de Phone Number [facility] [address] [place] [address], from Last 3 Months or Most Recently Relevant to Health Maintenance Insurance [place] [facility] [place] [id number] [place] [id number] [place] [id number] Care Teams Window Trimmer Apprentice Relationship Specialty Start Date End Date Name, MD Luis [address] [place] [address] PCP - General Family Medicine 09/05/15
--- OUTSIDE RECORDS SUMMARY | 2025-03-12 14:48 | XMS_ITS | Encounter Summary ---
Author Organization [employer] [facility] Address [address] [place] [address] Care Team Providers Care Industrial Hygienist Name Role Phone Name, Luis ECHEVARRIA Primary Care Provider [phone] Encounter Details Date Type Department Care Team (Late st Contact Info) Description 10/19/2024 Telephone [facility] [address] [place], [place] [phone] Name, MD Luis [address] [place] [address] Social History Tobacco Use Types Packs/Day Years [...] Description 03/22/2025 8:00 AM EDT Office Visit [facility] [address] [place] [address] Hermilo Munroe DDS [address] [place] [address] 07/11/2025 3:00 PM EST Office Visit [facility] [address] [place] [address] Amelia Dillon [address] [place] [address] documented as of this encounter Visit Diagnoses Not on filedocumented in this encounter Additional Health Concerns Assessment Noted Time PHQ-9 Depression Total Score: 0 08/12/19 24 9:27 AM EST documented as of this encounter Care Teams Industrial Hygienist Relationship Specialty Start Date End Date Name, MD Luis [address] [place] [address] PCP - General Family Medicine 09/05/15 documented as of this encounter
== END 2025-03-12 12:24 | disposition home or self-care (01) ==
LOC: HO.MAMMO 12:23
PROVIDERS: Absent Provider Surgery; PCP Internal Medicine Geriatric Medicine; Visit Provider Obstetrics & Gynecology
DX: N61.0 Mastitis without abscess (principal)
CPT/HCPCS: 76642; 77062; 77066

== ENCOUNTER → 2025-03-12 12:30 | Outpatient (BNV) | payer MEDICAID, SELFPAY | PROVIDERS: Absent Provider Surgery; PCP Internal Medicine Geriatric Medicine; Visit Provider Radiology Body Imaging | DX: N61.0 Mastitis without abscess (principal) | CPT/HCPCS: 76642; 77062; 77066 ==

== ENCOUNTER 2025-04-08 08:09 | Outpatient (REF) | payer MEDICAID, SELFPAY ==
--- OUTSIDE RECORDS SUMMARY | 2025-04-08 09:25 | XMS_ITS | Encounter Summary ---
Author Organization [employer] Address [address] [place] [address] Care Team Providers Care Soaker Name Role Phone Name, Luis ECHEVARRIA Primary Care Provider [phone] Encounter Details Date Type Department Care Team (Late st Contact Info) Description 10/19/2024 Telephone [facility] [address] [place], [place] [phone] Name, MD Luis [address] [place] [address] Social History Tobacco Use Types Packs/Day Years [...] Care Team (Late st Contact Info) Description 07/11/2025 3:00 PM EST Office Visit [facility] [address] [place] [address] Amelia Dillon [address] [place] [address] documented as of this encounter Visit Diagnoses Not on filedocumented in this encounter Additional Health Concerns Assessment Noted Time PHQ-9 Depression Total Score: 0 08/12/19 24 9:27 AM EST documented as of this encounter Care Teams Soaker Relationship Specialty Start Date End Date Name, MD Luis [address] [place] [address] PCP - General Family Medicine 09/05/15 documented as of this encounter
--- OUTSIDE RECORDS SUMMARY | 2025-04-08 09:25 | XMS_ITS | Encounter Summary ---
Author Organization [facility] Address [address] [place] [address] Phone Care Team Providers Care Medical Billing Supervisor Name Role Phone Name, Luis ECHEVARRIA Primary Care Provider [phone] Encounter Details Date Type Department Care Team (Late st Contact Info) Description 11/14/2023 Ancillary Orders [facility], X-Ray - [facility] [address] [place] [address] Kamran Wang MD [address] [place] [address] [email or web address] Pain in left hip (Primary Dx) Social [...] hip documented in this encounter Care Teams Medical Billing Supervisor Relationship Specialty Start Date End Date Name, MD Luis [address] [place] [address] PCP - General 02/29/20 documented as of this encounter Additional Source Comments The information contained in this document represents components of the legal health record. It is not the complete legal health record.[facility]
--- OUTSIDE RECORDS SUMMARY | 2025-04-08 09:25 | XMS_ITS | Clinical Summary ---
Author Organization [facility] Address [address] [facility] [address] [place] [address] Phone Care Team Providers Care Surface Grinder Name Role Phone Name, Luis ECHEVARRIA Primary Care Provider [phone] Allergies Active Allergy Reactions Criticality Noted Date Comments Egg 02/29/2020 Milk 12/03/2020 Samburg Murcia 12/03/2020 Peanut 02/29/2020 Oxycodone-Acetaminophen 08/29/2021 Wheat 12/03/2020 Medications ferrous sulfate 143 mg (45 mg oneida iron) TbER Take 143 mg by mouth [...] topic Medical Devices Not on file Insurance [facility] [address] [place] [address] [id number] [facility] C3 [facility] [address] [place] [id number] [facility] C3 ACO [facility] C3 ACO Care Teams Surface Grinder Relationship Specialty Start Date End Date Name, MD Luis [address] [place] [address] PCP - General 02/29/20 Additional Source Comments The information contained in this document represents components of the legal health record. It is not the complete legal health record.[facility]
--- OUTSIDE RECORDS SUMMARY | 2025-04-08 09:25 | XMS_ITS | Encounter Summary ---
Author Organization [employer] Address [address] 7[address] [place] [address] Care Team Providers Care Shafting Cleaner Name Role Phone Name, Luis ECHEVARRIA Primary Care Provider Reason for Visit * Reason Comments Med Refill Encounter Details Date Type Department Care Team (Late st Contact Info) Description 06/29/2023 Refill [facility] [address] [place], [place] [phone] Rosa Perera MD [address] [place], [place] [phone] Sciatic leg pain Social History Tobacco Use [...] Description 07/11/2025 3:00 PM EST Office Visit [facility] ADULT DENTAL [address] [place] [address] Wilma, Amelia [address] [place] [address] documented as of this encounter Visit Diagnoses Diagnosis Sciatic leg pain documented in this encounter Additional Health Concerns Assessment Noted Time PHQ-9 Depression Total Score: 0 07/30/19 23 10:15 AM EST documented as of this encounter Care Teams Shafting Cleaner Relationship Specialty Start Date End Date Name, MD Luis [address] [place] [address] PCP - General Family Medicine 09/05/15 documented as of this encounter
--- OUTSIDE RECORDS SUMMARY | 2025-04-08 09:25 | XMS_ITS | Encounter Summary ---
Author Organization [facility] Address [address] [place] [address] Phone Care Team Providers Care Ict Analyst Name Role Phone Name, Luis ECHEVARRIA Primary Care Provider [phone] Encounter Details Date Type Department Care Team (Late st Contact Info) Description 02/29/2020 Procedure Pass [facility], Ct Scan - [address] [address] Social History Tobacco Use Types Packs/Day Years [...] documented as of this encounter Care Teams Ict Analyst Relationship Specialty Start Date End Date Name, MD Luis [address] [place] [address] PCP - General 02/29/20 documented as of this encounter Additional Source Comments The information contained in this document represents components of the legal health record. It is not the complete legal health record.[facility]
--- OUTSIDE RECORDS SUMMARY | 2025-04-08 09:25 | XMS_ITS | Encounter Summary ---
Author Organization [facility] Address [address] [facility] [facility] [address] [place] [address] Phone Care Team Providers Care Manpower Development Specialist Name Role Phone Name, Luis ECHEVARRIA Primary Care Provider [phone] Encounter Details Date Type Department Care Team (Latest Contact Info) Description 02/07/2020 Transcribe Orders Virtual Department [address] [place] [address] Nestor Figueroa MD [address] [facility] 2 [place] [address] [email or web address] Encounter for laboratory testing for [...] documented as of this encounter Care Teams Manpower Development Specialist Relationship Specialty Start Date End Date Name, MD Luis [address] [place] [address] PCP - General 02/29/20 documented as of this encounter Additional Source Comments The information contained in this document represents components of the legal health record. It is not the complete legal health record.[facility]
--- OUTSIDE RECORDS SUMMARY | 2025-04-08 09:25 | XMS_ITS | Encounter Summary ---
Author Organization [facility] Address [address] [place] [address] Phone Care Team Providers Care Carding Doubler Name Role Phone Name, Luis ECHEVARRIA Primary Care Provider [phone] Encounter Details Date Type Department Care Team (Late st Contact Info) Description 10/22/2024 Procedure Pass [facility], [address] [address] Social History Tobacco Use Types Packs/Day Years [...] on filedocumented in this encounter Care Teams Carding Doubler Relationship Specialty Start Date End Date Name, MD Luis [address] [place] [address] PCP - General 02/29/20 documented as of this encounter Additional Source Comments The information contained in this document represents components of the legal health record. It is not the complete legal health record.[facility]
--- OUTSIDE RECORDS SUMMARY | 2025-04-08 09:25 | XMS_ITS | Encounter Summary ---
Author Organization [employer] [facility] Address [address] 7[address] [place] [address] Care Team Providers Care Patient Assessment Coordinator Name Role Phone Name, Luis ECHEVARRIA Primary Care Provider [phone] Encounter Details Date Type Department Care Team (Latest Contact Info) Description 04/06/2021 Abstract [facility] CONVERSIONS Dental, Provider, DDS Social History Tobacco [...] Description 07/11/2025 3:00 PM EST Office Visit [facility] ADULT DENTAL [address] [place] [address] Wilma, Amelia [address] [place] [address] documented as of this encounter Visit Diagnoses Not on filedocumented in this encounter Care Teams Patient Assessment Coordinator Relationship Specialty Start Date End Date Name, MD Luis [address] [place] [address] PCP - General Family Medicine 09/05/15 documented as of this encounter
--- OUTSIDE RECORDS SUMMARY | 2025-04-08 09:25 | XMS_ITS | Encounter Summary ---
Author Organization [employer] [facility] Address [address] [place] [address] Care Team Providers Care Warp Drawer Name Role Phone Name, Luis ECHEVARRIA Primary Care Provider [phone] Encounter Details Date Type Department Care Team (Latest Contact Info) Description 06/15/2019 Abstract [facility] CONVERSIONS Dental, Provider, DDS Social [...] Description 07/11/2025 3:00 PM EST Office Visit [facility] ADULT DENTAL [address] [place] [address] Wilma, Amelia [address] [place] [address] documented as of this encounter Visit Diagnoses Not on filedocumented in this encounter Care Teams Warp Drawer Relationship Specialty Start Date End Date Name, MD Luis [address] [place] [address] PCP - General Family Medicine 09/05/15 documented as of this encounter
--- OUTSIDE RECORDS SUMMARY | 2025-04-08 09:25 | XMS_ITS | Encounter Summary ---
Author Organization [employer] Address [address] [place] [address] Care Team Providers Care Package Dyeing Machine Operator Name Role Phone Name, Luis ECHEVARRIA Primary Care Provider [phone] Reason for Visit * Reason Comments Med Refill Encounter Details Date Type Department Care Team ([facility] st Contact Info) Description 10/10/2024 Refill [facility] [address] [place], [place] [phone] Name, MD Luis [address] [place] [address] Social History Tobacco Use Types Packs/Day Years [...] Description 07/11/2025 3:00 PM EST Office Visit [facility] ADULT DENTAL [address] [place] [address] Amelia Dillon [address] [place] [address] documented as of this encounter Visit Diagnoses Not on filedocumented in this encounter Additional Health Concerns Assessment Noted Time PHQ-9 Depression Total Score: 0 08/12/19 24 9:27 AM EST documented as of this encounter Care Teams Package Dyeing Machine Operator Relationship Specialty Start Date End Date Name, MD Luis [address] [place] [address] PCP - General Family Medicine 09/05/15 documented as of this encounter
--- OUTSIDE RECORDS SUMMARY | 2025-04-08 09:25 | XMS_ITS | Encounter Summary ---
Author Organization [facility] Address [address] [facility] [address] [place] [address] Phone Care Team Providers Care Line Out Man Name Role Phone Name, Luis ECHEVARRIA Primary Care Provider [phone] Encounter Details Date Type Department Care Team (Late st Contact Info) Description 02/02/2021 Procedure Pass [facility] Admitting Dept Virtual Department [address] [place] [address] Social History Tobacco Use Types Packs/Day Years [...] documented as of this encounter Care Teams Line Out Man Relationship Specialty Start Date End Date Name, MD Luis [address] [place] [address] PCP - General 02/29/20 documented as of this encounter Additional Source Comments The information contained in this document represents components of the legal health record. It is not the complete legal health record.[facility]
--- OUTSIDE RECORDS SUMMARY | 2025-04-08 09:25 | XMS_ITS | Encounter Summary ---
Author Organization [facility] Address [address] [place] [address] Phone Care Team Providers Care Historic Sites Supervisor Name Role Phone Name, Luis ECHEAVRRIA Primary Care Provider [phone] Reason for Referral * MRI/CAT Scan - Closed Specialty Diagnoses / Procedures Referred By Geeta morales Referred To Contact Radiology Diagnoses Other spondylosis with radiculopathy, cervical region Procedures MRI Cervical Spine Mari Suggs PA [address] [employer] [address] [place] [address] Phone: tel: [email or web address] Referral ID Status Reason Start Date Expiration Date Visits Re quested Visits Authorized [id number] Closed 10/22/2024 10/22/2025 1 1 Encounter Details Date Type Department Care Team (Latest Contact Info) Description 10/22/2024 Transcribe Orders Virtual Department [address] [place] [address] Mari Suggs PA [address] [employer] [address] [place] [address] [email or web address] Other spondylosis with radiculopathy, cervical region (Primary [...] clinician's provided indication for this examination in [facility]:Outside Radiology Order; spondylosis TECHNIQUE: MRI CERVICAL SPINE [...] region documented in this encounter Care Teams Historic Sites Supervisor Relationship Specialty Start Date End Date Name, MD Luis [address] [place] [address] PCP - General 02/29/20 documented as of this encounter Additional Source Comments The information contained in this document represents components of the legal health record. It is not the complete legal health record.[facility]
--- OUTSIDE RECORDS SUMMARY | 2025-04-08 09:25 | XMS_ITS | Encounter Summary ---
Author Organization [facility] Address [address] [place] [address] Phone Care Team Providers Care Tobacco Roller Name Role Phone Name, Luis ECHEVARRIA Primary Care Provider [phone] Encounter Details Date Type Department Care Team (Late st Contact Info) Description 08/28/2024 Ancillary Orders [facility], X-Ray - [address] [address] Mrai Suggs PA [address] [facility] [address] [place] [address] [email or web address] Cervicalgia (Primary Dx) Social History Tobacco Use [...] clinician's provided indication for this examination in [facility]: Pain COMPARISON: None Procedure Note Gold Boyer MD - 08/28/2024 XR CERVICAL SPINE 4-5 VIEWS Referring clinician's provided indication for this examination in [facility]:Pain COMPARISON: None IMPRESSION: Mild degenerative changes of the cervical spine with mild facetarthropathy and mild multilevel degenerative endplate changes, perhapsmost notable at C5-6 with minor disc space narrowing at this level. Nosignificant bony encroachment upon the neural foramina. Mari DICKERSON IMG XR SPINE Final Result documented in this encounter Visit Diagnoses Diagnosis Cervicalgia- Primary Cervicalgia documented in this encounter Care Teams Tobacco Roller Relationship Specialty Start Date End Date Name, MD Luis [address] [place] [address] PCP - General 02/29/20 documented as of this encounter Additional Source Comments The information contained in this document represents components of the legal health record. It is not the complete legal health record.[facility]
--- OUTSIDE RECORDS SUMMARY | 2025-04-08 09:25 | XMS_ITS | Clinical Summary ---
Author Organization [employer] [facility] Address [address] [place] [address] Care Team Providers Care Dye Lab Technician Name Role Phone Name, Luis ECHEVARRIA Primary Care Provider [phone] Allergies Active Allergy Reactions Criticality Noted Date [...] taking.Reason: pt states not taking, Reported on 03/22/2025 cyclobenzaprine (Flexeril) 10 MG tabletIndications: Acute pain of right shoulder Take 1 tablet (10 mg) by mouth if needed in the morning, at noon, and at bedtime for muscle spasms for up to 10 days. 30 tablet 02/14/20 24 Active Additional Information Patient not taking.Reported on 03/22/2025 cholecalciferol (Vitamin D3) 25 MCG (1000 UT) tablet TAKE 1 TABLET BY MOUTH EVERY DAY 90 tablet 02/27/20 24 Active Additional Information Patient not taking.Reported on 03/22/2025 Diclofenac Sodium 1 % gelIndications:Sunshine mb pain, [...] taking.Reason: pt states not taking, Reported on 03/22/2025 atorvastatin (Lipitor) 40 MG tabletIndications: Hyperlipidemia, unspecified hyperlipidemia type TAKE 1 TABLET BY MOUTH EVERY DAY 90 tablet 1 12/19/19 25 Active Active Problems Problem Noted Date Diagnosed Date 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 On exam evidence of muscle spasm Etiology? 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 On exam evidence of muscle spasm Etiology? Likely musculoskeletal Plan: NSAIDS, Muscle relaxant, PT eval pt requested [facility] in [place] Fractured dental alevism with loss of materi al 07/22/2023 Localized [...] Encounters Date Type Department Care Team Description 03/22/2025 8:00 AM EDT Office Visit [facility] ADULT DENTAL [address] [place] [address] Hermilo Munroe DDS Fractured dental alevism with loss of material (Primary Dx); Abfraction 03/12/2025 Orders Only [facility] External Provider, [facility] from Last 3 Months Immunizations Immunization Administration [...] Sign Reading Time Taken Comments Blood Pressure 124/74 03/22/2025 8:08 AM EDT Pulse 66 03/22/2025 8:08 AM EDT Temperature 36.6 C (97.9 F) 06/20/2024 2:21 [...] Upcoming Encounters Date Type Department Care Team ([facility] st Contact Info) Description 07/11/2025 3:00 PM EST Office Visit [facility] ADULT DENTAL [address] [place] [address] Amelia Dillon [address] [place] [address] Health Maintenance Due Date Last Done Comments [...] 12/22/2025 12/22/2020, 12/03, 09/03/2020, Additional history exists Dental X-Ray: Bitewings 12/29/2025 12/29/19 25, 12/30/2022, 04/06/2021, Additional history exists Mammogram 03/12/2026 03/12/2025, 09/0 03/2025, 03/30/2024, Additional history exists Tobacco Screening 03/22/2026 03/22/2025 Dental X-Ray: Full Mouth 12/30/2027 025, 04/06/2021, [...] Procedure Name Priority Date/Time Associated Diagnosis Comments CASE PRESENTATION, DETAILED AND EXTENSIVE TREATMENT PLANNING Routine 03/22/2025 8:00 AM EDT 28 B(V) RESIN-BASED COMPOSITE - 1 SURF, POSTERIOR Routine 03/22/2025 8:00 AM EDT Abfraction 29 B(V) RESIN-BASED COMPOSITE - 1 SURF, POSTERIOR Routine 03/22/2025 8:00 AM EDT Abfraction 30 B(V) RESIN-BASED COMPOSITE - 1 SURF, POSTERIOR Routine 03/22/2025 8:00 AM EDT Abfraction 31 O RESIN-BASED COMPOSITE - 1 SURF, POSTERIOR Routine 03/22/2025 8:00 AM EDT 20 B(V) RESIN-BASED COMPOSITE - 1 SURF, POSTERIOR Routine 03/22/2025 8:00 AM EDT Abfraction 21 B(V) RESIN-BASED COMPOSITE - 1 SURF, POSTERIOR Routine 03/22/2025 8:00 AM EDT Fractured dental alevism with loss of material 24 F(V) RESIN-BASED COMPOSITE - 1 SURF, ANTERIOR Routine 03/22/2025 8:00 AM EDT Abfraction BI US BREAST LIMITED RIGHT Routine 03/12/2025 1:01 PM EDT BI MAMMOGRAM DIAGNOSTIC TOMOSYNTHESIS BILATERAL Routine 03/12/2025 1:01 PM EDT PROPHYLAXIS - ADULT Routine 12/28/2024 3 :00 PM EDT Dental calculus INTRAORAL - COMPLETE SERIES OF RADIOGRAPHIC IMAGES Routine 12/28/2024 3:00 PM EDT PERIODIC ORAL EVALUATION - ESTABLISHED PATIENT Routine 12/28/2024 3:00 PM EDT ZZZ HISTORICAL HEPATITIS C AB W/REFL TO HCV RNA, QN, PCR Routine 04/30/2022 11:36 AM EDT HIV 1/2 ANTIGEN/ANTIBODY, FOURTH GENERATION W/RFL Routine 04/30/2022 11:36 AM EDT ZZZ HISTORICAL HPV E6/E7 RFLX JENNIFER 16 18/45 Routine 12/22/2020 11:23 AM EDT from Last 3 Months or Most Recently Relevant to Health Maintenance Results * BI US Breast Limited Right (03/12/2025 1:01 PM EDT) Anatomical Region Laterality Modality Breast Right Ultrasound 03/12/2025 1:01 PM EDT Narrative 03/12/2025 1:56 PM EDT [facility] [address] [place] [address] Ultrasound Report Signed Patient: Jen Marrero MR#: [id number] : 1980 Acct:[id number] Age/Sex: 44 / F ADM Date: 03/12/25 Loc: HO.MAMMO Attending Dr: eDl Amador MD Ordering Physician: Del Amador MD Date of Service: 03/12/25 Procedure(s): US breast RT limited mamm only Accession Number(s): [id number] cc: Danelle,Luis ECHEVARRIA; Del Amador MD Reason for Exam: N61.0 - Mastitis without abscess EXAMINATION(S): MM DIAGNOSTIC DIGITAL BREAST TOMOSYNTHESIS, BILATERAL [...] suspicious calcifications or other abnormalities are seen. US/US breast RT limited mamm only IMPRESSION: RIGHT BREAST: Negative, no evidence of [...] OV> 03/12/25 1354 DD/ 1301 TD/TT: 03/12/25 1324 Wire Straightening Machine Operator: Procedure Note Donotuseinterpreter, Image - 03/12/2025 [facility] [address] [place], [place] [address] Ultrasound Report Signed Patient: Jen Marrero MMR#: [id number] : 1980Acct:[id number] Age/Sex: 44 / FADM Date: 03/12/25 Loc: HO.MAMMO Attending Dr: Del Amador MD Ordering Physician: Del Amador MD Date of Service: 03/12/25 Procedure(s): US breast RT limited mamm only Accession Number(s): [id number] cc: Name,Luis ECHEVARRIA; Del Amador MD Reason for Exam: N61.0 - Mastitis without abscess EXAMINATION(S): MM DIAGNOSTIC DIGITAL BREAST TOMOSYNTHESIS, BILATERAL [...] suspicious calcifications or other abnormalities are seen. US/US breast RT limited mamm only IMPRESSION: RIGHT BREAST: Negative, no evidence of [...] OV> 03/12/25 1354 DD/ 1301 TD/TT: 03/12/25 1324 Wire Straightening Machine Operator: us [facility] External Provider IMG US PROCEDURES Final Result * BI Mammogram Diagnostic Tomosynthesis Bilateral (03/12/2025 1:01 PM EDT) Anatomical Region Laterality Modality Breast Bilateral Mammography 03/12/2025 1:01 PM EDT Narrative 03/12/2025 1:56 PM EDT [address] [place] [address] Mammography Report Signed Patient: Jen Marrero MR#: [id number] : 1980 Acct:[id number] Age/Sex: 44 / F ADM Date: 03/12/25 Loc: HO.MAMMO Attending Dr: Del Amador MD Ordering Physician: Del Amador MD Results: 1Negativ e Date of Service: 03/12/25 Follow Up: 1 Year From Orig ina Mammogram Procedure(s): MM tomosynthesis diagnostic BI Accession Number(s): [id number] cc: Luis Mcclendon MD; Del Amador MD [...] 03/12/25 1354 DD/ 1301 TD/TT: 03/12/25 1306 Wire Straightening Machine Operator: Procedure Note Donotuseinterpreter, Image - 03/12/2025 [facility] [address] [place] [address] Mammography Report Signed Patient: Jen Marrero [facility]#: [id number] : 1980Acct:[id number] Age/Sex: 44 / FADM Date: 03/12/25 Loc: HO.MAMMO Attending Dr: Del Amador MD Ordering Physician: Del Amador MDResults: 1Negativ e Date of Service: 03/12/25Follow Up: 1 Year From [facility] Mammogram Procedure(s): MM tomosynthesis diagnostic BI Accession Number(s): [id number] cc: Danelle,Luis ECHEVARRIA; Del Amador MD EXAMINATION(S): MM DIAGNOSTIC [...] 03/12/25 1354 DD/ 1301 TD/TT: 03/12/25 1306 Wire Straightening Machine Operator: [facility] External Provider IMG BI PROCEDURES Final [...] a test for HCV RNA (test code 31093) is suggested. For additional information please refer to http://[employer]/faq/ZVJ06b0 (This link is being provided for informational/ [...] purpose. For additional information please refer to http://[employer]/faq/XLW494 (This link is being provided for informational/ [...] mRNA E6/E7 rflx Not Detected Not Detected [facility] Comment: Methodology: Secretary Receptionist-Mediated Amplification This assay detects E6/E7 viral messenger RNA (mRNA) from 14 high-risk HPV types (16,18,31,33,35,39,45,51,52,56,58,59,66,68). The analytical performance characteristics of this assay have been determined by dynaTrace software. The modifications have not been cleared or approved by the FDA. This assay has been validated pursuant to the CLIA regulations and is used for clinical purposes. For additional information, please refer to http://education.[employer]/faq/XFT591t6 (This link if provided for information/ educational purposes only.) THIS TEST WAS PERFORMED AT: [facility] [address] [place] [address] [address] [address] KARUNA ROGERS MD 12/22/2020 11:2 3 AM EDT [facility] HISTORICAL/NON ORDERABLE LABS Fi nal Result [facility] [address] from Last 3 Months or Most Recently Relevant to Health Maintenance Insurance [place] [address] [place] [address] [place] [address] [place] [id number] [place] [address] Care Teams Dye Lab Technician Relationship Specialty Start Date End Date Name, MD Luis [address] [place] [address] PCP - General Family Medicine 09/05/15
== END 2025-04-08 08:10 | disposition home or self-care (01) ==
LOC: HO.LNP 08:09
PROVIDERS: PCP Internal Medicine Geriatric Medicine; Visit Provider Obstetrics & Gynecology
DX: Z01.419 Encounter for gynecological examination (general) (routine) without abnormal findings (principal)
CPT/HCPCS: 87626; 88175; 99396

== ENCOUNTER 2025-04-08 08:09 | Outpatient (AMB) | payer MEDICAID, SELFPAY ==
--- NOTE | 2025-04-08 08:26 | A.OFFVIS_ITS ---
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 Primer Powder Blender Wet Required: Yes Primer Powder Blender Wet Language: Cloth Wire Weaver Services: Primer Powder Blender Wet Present (in person) Primer Powder Blender Wet Name: Annel COMBS Information Interpreted: non-clinical & clinical Generator Mechanic: Generator Mechanic Present (Annel COMBS) Accompanied by: Self / Same As Patient Allergies acetaminophen (Percocet) Adverse Reaction (Unknown, Verified 04/08/25 08:34) stomach pain oxycodone (Percocet) Adverse Reaction (Unknown, Verified 04/08/25 08:34) stomach pain wheat/egg Allergy (Unknown, Uncoded 04/08/25 08:34) throat irritation, stomach upset Is last menstrual period known: Yes HPI Comments Details: Presenting for annual exam. No complaints. Last Pap/HPV was negative in 12/22 Last Mammogram was BI-RADS 1 in 03/28 [facility] Medical History Bilateral nephrolithiasis Urinary, incontinence, stress female Urgency of micturition Renal stone IBS (irritable colon syndrome) GERD (gastroesophageal reflux disease) Irritable bowel Acid reflux Surgical History Hx of section History of esophagogastroduodenoscopy (EGD) Family History Sister Breast cancer, Onset Age: 40 Social History Household Members: Children Housing: Apartment Are you a primary career and guidance counselor to a significant other at home: No Do you presently have visiting nurse or other home services: No Alcohol intake: never Patient Tobacco Use Status: Never used Tobacco service: No Current occupational status: employed 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 Gender identity: Female Female Reproductive History Menstrual Age of Menarche: 14 Review of Systems Const All systems reviewed & are unremarkable except as noted in HPI and below Card Reports as per HPI Resp Reports as per HPI GI Reports as per HPI and Reports no additional complaints Reports as per HPI Physical Exam Vital Signs: Last Vital Signs BP 110/72 04/08/25 08:29 BMI result Body Mass Index 27.7 Const General: cooperative, healthy appearing and comfortable Chest Chest palpation & inspection: normal inspection of the chest and normal palpation of entire chest wall Breast/axilla inspection: normal inspection of the breasts and normal inspection of the axillae Breast/axilla palpation: normal palpation of the breasts, normal palpation of the axillae and no axillary lymphadenopathy Resp Effort & Inspection: normal respiratory effort Auscultation: clear to auscultation bilaterally Percussion: percussion normal Cardio Palpation: normal PMI Rate: regular rate Rhythm: regular rhythm Heart sounds: no murmurs and no rubs Peripheral pulses: Peripheral pulses 2+ throughout GI Inspection: Yes normal to inspection Palpation (GI): Soft to palpation, nontender, no guarding, not rigid and No hepatosplenomegaly present Percussion: Yes normal to percussion Auscultation: normal bowel sounds Rectal Exam - Female: deferred General: Yes bladder normal to palpation External Female Exam: No lesion Speculum Exam - Vagina: normal appearance of the vagina, normal palpation, normal vaginal discharge and not erythematous Speculum Exam - Cervix: normal appearance of the cervix and normal palpation Bimanual exam- vagina & uterus: normal bimanual exam, normal palpation, uterine size normal, bladder normal to palpation, consistency normal and normal palpation Bimanual Exam- Adnexa, other: normal adnexae, no masses and no tenderness Assessment & Plan Assessment & Plan (1) Well woman exam with routine gynecological exam: Code(s): Z01.419 - Encounter for gynecological examination (general) (routine) without abnormal findings Category: Medical Plan: Cotesting done. Instructions given to patient to schedule next screening Mammogram in 03/29. Counseled the patient about the recommended dietary allowance of 1000 mg of Calcium & 600 IU of vitamin D. The patient was instructed to perform monthly self-breast exams and to schedule an annual exam in a year; All questions answered and the patient verbalized understanding. Instructed the patient to schedule annual exam in a year Coding Level of Care Code Est Pt Prev Care 40-64y(96350) Diagnoses Well woman exam with routine gynecological exam Z01.419
[2025-04-08 08:29] VITALS: BP 110/72; BMI 27.7
== END 2025-04-08 08:47 | disposition home or self-care (01) ==
LOC: HO.HWS 08:10
PROVIDERS: PCP Internal Medicine Geriatric Medicine; Visit Provider Obstetrics & Gynecology
DX: Z01.419 Encounter for gynecological examination (general) (routine) without abnormal findings (principal)
CPT/HCPCS: 99396; 99459

== ENCOUNTER 2025-05-17 13:57 | Outpatient (REF) | payer MEDICAID, SELFPAY ==
--- NOTE | ~2025-05-17 | US_ITS ---
EXAMINATION: US RETROPERITONEAL LIMITED (RENAL ONLY) CLINICAL INFORMATION: Calculus of kidney. COMPARISON: Ultrasound kidney bilateral 09/21/2023 TECHNIQUE: Routine imaging of kidneys was performed. FINDINGS: RIGHT KIDNEY: 10.3 x 3.5 x 3.4 cm (SAG x AP x TRV). The kidney is normal in size, contour, and echogenicity. Renal cortical thickness is normal. No calculi or focal parenchymal lesions. No hydronephrosis. LEFT KIDNEY: 10.2 x 4.2 x 3.2 cm (SAG x AP x TRV). The kidney is normal in size, contour, and echogenicity. Renal cortical thickness is normal. No calculi or focal parenchymal lesions. There is extrarenal pelvis seen. US/US renal BI IMPRESSION: Left renal extrarenal pelvis unchanged since previous study 03/23/2024. No echogenic stones or mass seen.. Electronically signed by: Kamran Pollack MD 05/17/2025 03:09 PM EST
--- OUTSIDE RECORDS SUMMARY | 2025-05-17 20:39 | XMS_ITS | Encounter Summary ---
Author Organization [employer] [facility] Address [address] 7[address] [place] [address] Care Team Providers Care Verifying Machine Operator Name Role Phone Name, Luis CEHEVARRIA Primary Care Provider [phone] Encounter Details Date Type Department Care Team (Latest Contact Info) Description 06/15/2019 Abstract [facility] CONVERSIONS Dental, Provider, DDS Social [...] Description 07/11/2025 3:00 PM EST Office Visit [facility] ADULT DENTAL [address] [place] [address] Wilma, Amelia [address] [place] [address] documented as of this encounter Visit Diagnoses Not on filedocumented in this encounter Care Teams Verifying Machine Operator Relationship Specialty Start Date End Date Name, MD Luis [address] [place] [address] PCP - General Family Medicine 09/05/15 documented as of this encounter
--- OUTSIDE RECORDS SUMMARY | 2025-05-17 20:40 | XMS_ITS | Encounter Summary ---
Author Organization [facility] Address [address] [facility] [address] [place] [address] Phone Care Team Providers Care Gig Tender Name Role Phone Name, Luis ECHEVARRIA Primary Care Provider [phone] Encounter Details Date Type Department Care Team (Late st Contact Info) Description 02/02/2021 Procedure Pass [facility] Endoscopy Admitting Dept Virtual Department [address] [place] [address] Social History Tobacco Use Types Packs/Day Years [...] documented as of this encounter Care Teams Gig Tender Relationship Specialty Start Date End Date Name, MD Luis [address] [place] [address] PCP - General 02/29/20 documented as of this encounter Additional Source Comments The information contained in this document represents components of the legal health record. It is not the complete legal health record[facility]
--- OUTSIDE RECORDS SUMMARY | 2025-05-17 20:40 | XMS_ITS | Encounter Summary ---
Author Organization [facility] Address [address] [facility] [address] [place] [address] Phone Care Team Providers Care Leadership Intern Name Role Phone Name, Luis ECHEVARRIA Primary Care Provider Encounter Details Date Type Department Care Team (Latest Contact Info) Description 02/07/2020 Transcribe Orders Virtual Department [address] [place] [address] Nestor Figueroa MD [address] [facility] 2 [place] [address] [email or web address] Encounter for laboratory testing for [...] documented as of this encounter Care Teams Leadership Intern Relationship Specialty Start Date End Date Name, MD Luis [address] [place] [address] PCP - General 02/29/20 documented as of this encounter Additional Source Comments The information contained in this document represents components of the legal health record. It is not the complete legal health record.[facility]
--- OUTSIDE RECORDS SUMMARY | 2025-05-17 20:40 | XMS_ITS | Clinical Summary ---
Author Organization [facility] Address [address] [facility] [address] [place] [address] Phone Care Team Providers Care Yardage Tufting Machine Operator Name Role Phone Name, Luis ECHEVARRIA Primary Care Provider Allergies Active Allergy Reactions Criticality Noted Date Comments Egg 02/29/2020 Milk 12/03/2020 [place] 12/03/2020 Peanut 02/29/2020 Oxycodone-Acetaminophen 08/29/2021 Wheat 12/03/2020 Medications ferrous sulfate 143 mg (45 mg [place] iron) TbER Take 143 mg by mouth [...] patient's age to complete this topic IPV VACCINES Aged Out No longer eligi ble [...] topic Medical Devices Not on file [place] [address] [place] [address] [place] [place] [id number] [facility] [address] [place] [place] [address] [facility] [address] [facility] [facility] [address] [place] [address] [address] [address] [facility] [facility] [address] [employer] [facility] [place] [place] [id number] Care Teams Yardage Tufting Machine Operator Relationship Specialty Start Date End Date Name, MD Luis [address] [place] [address] PCP - General 02/29/20 Additional Source Comments The information contained in this document represents components of the legal health record. It is not the complete legal health record.[facility]
--- OUTSIDE RECORDS SUMMARY | 2025-05-17 20:40 | XMS_ITS | Encounter Summary ---
Author Organization [facility] Address [address] [place] [address] Phone Care Team Providers Care Director Of Automation Name Role Phone Name, Luis ECHEVARRIA Primary Care Provider [phone] Encounter Details Date Type Department Care Team (Late st Contact Info) Description 02/29/2020 Procedure Pass [facility], Ct Scan - [address] [address] Social History Tobacco Use Types Packs/Day Years [...] as of this encounter Care Teams Director Of Automation Relationship Specialty Start Date End Date Name, MD Luis [address] [place] [address] PCP - General 02/29/20 documented as of this encounter Additional Source Comments The information contained in this document represents components of the legal health record. It is not the complete legal health record.[facility]
--- OUTSIDE RECORDS SUMMARY | 2025-05-17 20:40 | XMS_ITS | Encounter Summary ---
Author Organization [employer] [facility] Address [address] 7[address] [place] [address] Care Team Providers Care Sagger Soak Name Role Phone Name, Luis ECHEVARRIA Primary Care Provider [phone] Encounter Details Date Type Department Care Team (Latest Contact Info) Description 04/06/2021 Abstract [facility] CONVERSIONS Dental, Provider, DDS Social History Tobacco [...] Description 07/11/2025 3:00 PM EST Office Visit [facility] ADULT DENTAL [address] [place] [address] Wilma, Amelia [address] [place] [address] documented as of this encounter Visit Diagnoses Not on filedocumented in this encounter Care Teams Sagger Soak Relationship Specialty Start Date End Date Name, MD Luis [address] [place] [address] PCP - General Family Medicine 09/05/15 documented as of this encounter
--- OUTSIDE RECORDS SUMMARY | 2025-05-17 20:40 | XMS_ITS | Encounter Summary ---
Author Organization [facility] Address [address] [place] [address] Phone Care Team Providers Care Indoor Landscape Architect Name Role Phone Name, Luis ECHEVARRIA Primary Care Provider [phone] Encounter Details Date Type Department Care Team (Late st Contact Info) Description 10/22/2024 Procedure Pass [facility], [address] [address] Social History Tobacco Use Types Packs/Day Years [...] on filedocumented in this encounter Care Teams Indoor Landscape Architect Relationship Specialty Start Date End Date Name, MD Luis [address] [place] [address] PCP - General 02/29/20 documented as of this encounter Additional Source Comments The information contained in this document represents components of the legal health record. It is not the complete legal health record.[facility]
--- OUTSIDE RECORDS SUMMARY | 2025-05-17 20:40 | XMS_ITS | Encounter Summary ---
Author Organization [employer] [facility] Address [address] [place] [address] Care Team Providers Care Rn First Assistant Name Role Phone Name, Luis ECHEVARRIA Primary Care Provider [phone] Encounter Details Date Type Department Care Team (Late st Contact Info) Description 05/17/2025 Orders Only [facility] External Provider, [facility] Social History Tobacco Use Types Packs/Day Years [...] Description 07/11/2025 3:00 PM EST Office Visit [facility] ADULT DENTAL [address] [place], [place] [phone] Wilma, Amelia [address] [place] [address] documented as of this encounter Procedures Procedure Name Priority Date/Time Associated Diagnosis Comments US RENAL COMPLETE Routine 05/17/2025 2:1 9 PM EST documented in this encounter Results * US Renal Complete (05/17/2025 2:19 PM EST) Anatomical Region Laterality Modality Kidney Ultrasound 05/17/2025 2:19 PM EST Narrative 05/17/2025 3:12 PM EST [address] [address] Ultrasound Report Signed Patient: Jen Marrero MR#: [id number] : 1980 Acct:[id number] Age/Sex: 44 / F ADM Date: 05/17/25 Loc: HO.US Attending Dr: Magaly GERONIMO Ordering Physician: Magaly [place] Date of Service: 05/17/25 Procedure(s): US renal BI Accession Number(s): [id number] cc: Magaly [place]; Name,Luis ECHEVARRIA Reason for Exam: N20.0 - Calculus of kidney EXAMINATION: US RETROPERITONEAL LIMITED (RENAL ONLY) CLINICAL INFORMATION: Calculus of kidney. COMPARISON: Ultrasound kidney bilateral 09/21/2023 TECHNIQUE: Routine imaging of kidneys was performed. FINDINGS: RIGHT KIDNEY: 10.3 x 3.5 x 3.4 cm (SAG x AP x TRV). The kidney is normal in size, contour, and echogenicity. Renal cortical thickness is normal. No calculi or focal parenchymal lesions. No hydronephrosis. LEFT KIDNEY: 10.2 x 4.2 x 3.2 cm (SAG x AP x TRV). The kidney is normal in size, contour, and echogenicity. Renal cortical thickness is normal. No calculi or focal parenchymal lesions. There is extrarenal pelvis seen. US/US renal BI IMPRESSION: Left renal extrarenal pelvis unchanged since previous study 03/23/2024. No echogenic stones or mass seen.. Electronically signed by: Kamran Pollack MD 05/17/2025 03:09 PM EST Dictated By: Kamran Pollack MD Signed By: <Electronically signed by Kamran Pollack MD in OV> 05/17/25 1509 DD/ 1419 TD/TT: 05/17/25 1437 Lumber Yard Worker: [facility] Procedure Note Donotuseinterpreter, Image - 05/17/2025 [place] [address] Ultrasound Report Signed Patient: Jen Marrero [facility]#: [id number] : 1980Acct:[id number] Age/Sex: 44 / FADM Date: 05/17/25 Loc: HO.US Attending Dr: Magaly GERONIMO Ordering Physician: Magaly [place] Date of Service: 05/17/25 Procedure(s): US renal BI Accession Number(s): [id number] cc: Magaly [place]; Name,Luis ECHEVARRIA Reason for Exam: N20.0 - Calculus of kidney EXAMINATION: US RETROPERITONEAL LIMITED (RENAL ONLY) CLINICAL INFORMATION: Calculus of kidney. COMPARISON: Ultrasound kidney bilateral 09/21/2023 TECHNIQUE: Routine imaging of kidneys was performed. FINDINGS: RIGHT KIDNEY: 10.3 x 3.5 x 3.4 cm (SAG x AP x TRV). The kidney is normal in size, contour, and echogenicity. Renal cortical thickness is normal. No calculi or focal parenchymal lesions. No hydronephrosis. LEFT KIDNEY: 10.2 x 4.2 x 3.2 cm (SAG x AP x TRV). The kidney is normal in size, contour, and echogenicity. Renal cortical thickness is normal. No calculi or focal parenchymal lesions. There is extrarenal pelvis seen. US/US renal BI IMPRESSION: Left renal extrarenal pelvis unchanged since previous study 03/23/2024. No echogenic stones or mass seen.. Electronically signed by: Kamran Pollack MD 05/17/2025 03:09 PM EST RP Dictated By: Kamran Pollack MD Signed By: <Electronically signed by Kamran Pollack MD in OV> 05/17/25 1509 DD/ 1419 TD/TT: 05/17/25 1437 Lumber Yard Worker: [facility] External Provider IMG US PROCEDURES Final Result documented in this encounter Visit Diagnoses Not on filedocumented in this encounter Additional Health Concerns Assessment Noted Time PHQ-9 Depression Total Score: 0 08/12/19 24 9:27 AM EST documented as of this encounter Care Teams Rn First Assistant Relationship Specialty Start Date End Date Name, MD Luis [address] [place] [address] PCP - General Family Medicine 09/05/15 documented as of this encounter
--- OUTSIDE RECORDS SUMMARY | 2025-05-17 20:41 | XMS_ITS | Encounter Summary ---
Author Organization [employer] Address [address] 7[address] [place] [address] Care Team Providers Care Doctor Of Optometry Name Role Phone Name, Luis ECHEVARRIA Primary Care Provider [phone] Reason for Visit * Reason Comments Med Refill Encounter Details Date Type Department Care Team (Late st Contact Info) Description 06/29/2023 Refill [facility] [address] [place], [place] [phone] Rosa Perera MD [address] [place], [place] [phone] Sciatic leg pain Social History Tobacco Use [...] Description 07/11/2025 3:00 PM EST Office Visit [facility] ADULT DENTAL [address] [place] [address] Wilma, Amelia [address] [place] [address] documented as of this encounter Visit Diagnoses Diagnosis Sciatic leg pain documented in this encounter Additional Health Concerns Assessment Noted Time PHQ-9 Depression Total Score: 0 07/30/19 23 10:15 AM EST documented as of this encounter Care Teams Doctor Of Optometry Relationship Specialty Start Date End Date Name, MD Luis [address] [place] [address] PCP - General Family Medicine 09/05/15 documented as of this encounter
--- OUTSIDE RECORDS SUMMARY | 2025-05-17 20:41 | XMS_ITS | Encounter Summary ---
Author Organization [employer] Address [address] 7[address] [place] [address] Care Team Providers Care Assembler Bicycle Name Role Phone Name, Luis ECHEVARRIA Primary Care Provider [phone] Reason for Visit * Reason Comments Med Refill Encounter Details Date Type Department Care Team ([facility] st Contact Info) Description 10/10/2024 Refill [facility] MEDICINE [address] [place], [place] [phone] Name, MD Luis [address] [place] [address] Social History Tobacco Use Types Packs/Day Years [...] Description 07/11/2025 3:00 PM EST Office Visit [facility] ADULT DENTAL [address] [place] [address] Amelia Dillon [address] [place] [address] documented as of this encounter Visit Diagnoses Not on filedocumented in this encounter Additional Health Concerns Assessment Noted Time PHQ-9 Depression Total Score: 0 08/12/19 24 9:27 AM EST documented as of this encounter Care Teams Assembler Bicycle Relationship Specialty Start Date End Date Name, MD Luis [address] [place] [address] PCP - General Family Medicine 09/05/15 documented as of this encounter
--- OUTSIDE RECORDS SUMMARY | 2025-05-17 20:41 | XMS_ITS | Encounter Summary ---
Author Organization [facility] Address [address] [place] [address] Phone Care Team Providers Care Probate Paralegal Name Role Phone Name, Luis ECHEVARRIA Primary Care Provider [phone] Encounter Details Date Type Department Care Team (Late st Contact Info) Description 08/28/2024 Ancillary Orders [facility], X-Ray - [address] [address] Mari Suggs PA [address] [facility] [address] [place] [address] [email or web address] Cervicalgia (Primary Dx) Social History Tobacco Use [...] clinician's provided indication for this examination in [facility]: Pain COMPARISON: None Procedure Note Gold Boyer MD - 08/28/2024 XR CERVICAL SPINE 4-5 VIEWS Referring clinician's provided indication for this examination in [facility]:Pain COMPARISON: None IMPRESSION: Mild degenerative changes of the cervical spine with mild facetarthropathy and mild multilevel degenerative endplate changes, perhapsmost notable at C5-6 with minor disc space narrowing at this level. Nosignificant bony encroachment upon the neural foramina. Mari DICKERSON IMG XR SPINE Final Result documented in this encounter Visit Diagnoses Diagnosis Cervicalgia- Primary Cervicalgia documented in this encounter Care Teams Probate Paralegal Relationship Specialty Start Date End Date Name, MD Luis [address] [place] [address] PCP - General 02/29/20 documented as of this encounter Additional Source Comments The information contained in this document represents components of the legal health record. It is not the complete legal health record.[facility]
--- OUTSIDE RECORDS SUMMARY | 2025-05-17 20:41 | XMS_ITS | Encounter Summary ---
Author Organization [facility] Address [address] [place] [address] Phone Care Team Providers Care Snag Grinder Name Role Phone Name, Luis ECHEVARRIA Primary Care Provider [phone] Reason for Referral * MRI/CAT Scan - Closed Specialty Diagnoses / Procedures Referred By Geeta morales Referred To Contact Radiology Diagnoses Other spondylosis with radiculopathy, cervical region Procedures MRI Cervical Spine Mari Suggs PA [address] [place] [address] Phone: tel: [email or web address] Referral ID Status Reason Start Date Expiration Date Visits Re quested Visits Authorized [id number] Closed 10/22/2024 10/22/2025 1 1 Encounter Details Date Type Department Care Team (Latest Contact Info) Description 10/22/2024 Transcribe Orders Virtual Department [address] [place] [address] Mari Suggs PA [address] [employer] [address] [place] [address] [email or web address] Other spondylosis with radiculopathy, cervical region (Primary [...] clinician's provided indication for this examination in [facility]:Outside Radiology Order; spondylosis TECHNIQUE: MRI CERVICAL [...] region documented in this encounter Care Teams Snag Grinder Relationship Specialty Start Date End Date Name, MD Luis [address] [place] [address] PCP - General 02/29/20 documented as of this encounter Additional Source Comments The information contained in this document represents components of the legal health record. It is not the complete legal health record.[facility]
--- OUTSIDE RECORDS SUMMARY | 2025-05-17 20:41 | XMS_ITS | Encounter Summary ---
Author Organization [employer] Address [address] [place] [address] Care Team Providers Care Director Paid Media Name Role Phone Name, Luis ECHEVARRIA Primary Care Provider [phone] Encounter Details Date Type Department Care Team (Late st Contact Info) Description 10/19/2024 Telephone [facility] MEDICINE [address] [place], [place] [phone] Name, MD Luis [address] [place] [address] Social History Tobacco Use Types Packs/Day Years [...] Description 07/11/2025 3:00 PM EST Office Visit [facility] ADULT DENTAL [address] [place] [address] Amelia Dillon [address] [place] [address] documented as of this encounter Visit Diagnoses Not on filedocumented in this encounter Additional Health Concerns Assessment Noted Time PHQ-9 Depression Total Score: 0 08/12/19 24 9:27 AM EST documented as of this encounter Care Teams Director Paid Media Relationship Specialty Start Date End Date Name, MD Luis [address] [place] [address] PCP - General Family Medicine 09/05/15 documented as of this encounter
--- OUTSIDE RECORDS SUMMARY | 2025-05-17 20:41 | XMS_ITS | Encounter Summary ---
Author Organization [facility] Address [address] [place] [address] Phone Care Team Providers Care Sap Solution Manager Consultant Name Role Phone Name, Luis ECHEVARRIA Primary Care Provider Encounter Details Date Type Department Care Team (Late st Contact Info) Description 11/14/2023 Ancillary Orders [facility], X-Ray - [facility] [address] [place] [address] Kamran Wang MD [address] [place] [address] [email or web address] Pain in left hip (Primary Dx) Social [...] hip documented in this encounter Care Teams Sap Solution Manager Consultant Relationship Specialty Start Date End Date Name, MD Luis [address] [place] [address] PCP - General 02/29/20 documented as of this encounter Additional Source Comments The information contained in this document represents components of the legal health record. It is not the complete legal health record.[facility]
--- OUTSIDE RECORDS SUMMARY | 2025-05-17 20:42 | XMS_ITS | Clinical Summary ---
Author Organization [employer] [facility] Address [address] [place] [address] Care Team Providers Care Adjuster Arbitrator Name Role Phone Name, Luis ECHEVARRIA Primary Care Provider [phone] Allergies Active Allergy Reactions Criticality Noted Date Comments Acetaminophen 12/31/2013 Other reaction(s): UPSET STOMACH Murcia Pod Extract 12/03/2020 Egg Protein (Egg White) 02/29/2020 Milk (Cow) 12/03/2020 Other 04/15/2023 Other reaction(s): eggs: rash Oxycodone 12/31/2013 Other reaction(s): UPSET STOMACH Oxycodone-Acetaminophen 08/29/2021 Peanut-Containing Drug Products 02/29/2020 Wheat 12/03/2020 Medications cetirizine (ZyrTEC) 10 MG tablet Take 10 mg by mouth in the morning. Active [facility] B6 100 MG tablet TAKE 1 TABLET BY MOUTH EVERY DAY OTC DRUG NOT COVERED Active Low-Ogestrel 0.3-30 MG-MCG tablet TAKE 1 TABLET BY MOUTH EVERY DAY FOR 84 DAYS Active cyclobenzaprine (Flexeril) 10 MG tabletIndications :Acute pain of right shoulder Take 1 tablet (10 mg) by mouth if needed in the morning, at noon, and at bedtime for muscle spasms for up to 10 days. 30 tablet Active Additional Information Patient not taking.Reported on 03/22/2025 cholecalciferol (Vitamin D3) 25 MCG (1000 UT) tablet TAKE 1 TABLET BY MOUTH EVERY DAY 90 tablet Active Additional Information Patient not taking.Reported on 03/22/2025 Diclofenac Sodium 1 % gelIndications:Th umb pain, right,Sciatic leg pain apply (2G) by topical route 3 times every day to the affected area(s) 100 g 024 Active Additional Information Patient not taking.Reason: pt states not taking, Reported on 12/28/2024 triamcinolone (Kenalog) 0.1 % cream Apply topically if needed in the morning and at bedtime (pain and swelling). 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 On exam evidence of muscle spasm Etiology? Likely musculoskeletal Plan: NSAIDS, Muscle relaxant, PT eval pt requested [facility] in [place] Neck pain on right side 02/14/2024 Assessment & Plan (02/14/2024 1:48 PM EDT): Pt with c/o new onset of right sided neck and shoulder pain for a couple of weeks, pt works as a [employer]. On exam evidence of muscle spasm Etiology? Likely musculoskeletal Plan: NSAIDS, Muscle relaxant, PT eval pt requested [facility] in [place] Fractured dental alevism with loss of materi [...] Encounters Date Type Department Care Team Description 05/17/2025 Orders Only [facility] External Provider, [facility] 04/21/2025 Refill [facility] [address] [place] [address] Luis Mcclendon MD Herpes 04/11/2025 Results Follow-Up [facility] [address] [place] [address] NameLuis MD Pap Smear 04/08/2025 Orders Only GENERIC EXTERNAL DATA DEPARTMENT Provider, Generic External Data 03/22/2025 8:00 AM EDT Office Visit [facility] ADULT DENTAL [address] [place] [address] Hermilo Munroe DDS Fractured dental alevism with loss of material (Primary Dx); Abfraction 03/12/2025 Orders Only [facility] External Provider, [facility] from Last 3 Months Immunizations Immunization [...] 07/11/2025 3:00 PM EST Office Visit [facility] [address], [place] [phone] Wilma, Amelia [address] [place] [address] Health Maintenance Due Date Last Done Comments Disability Screening 1980 Alcohol/Substance Use Screening 1993 Family Planning (PISQ) 1996 HPV Vaccines (1 - 3-dose series) 1996 Hepatitis B Vaccines (1 of 3 - 19+ 3-dose series) 2000 Depression Screening 08/12/2024 08/12/2023, 08/12/19 24 SDOH Screening 08/12/2024 08/12/2023 COVID-19 Vaccine ( season) 2025 12/10/2021, 05/30/2021, 10/27/2020, Additional history exists Influenza Vaccine (#1) 2025 3, 04/07/2022, 04/30/2021, Additional history exists Dental Oral Exam 06/30/2025 12/28/2024, , 12/30/2022, Additional history exists Dental Prophylaxis 06/30/2025 12/28/2024, 0 07/21/2023, 12/30/2022, Additional history exists Dental X-Ray: Bitewings 12/29/2025 12/29/19 25, 12/30/2022, 04/06/2021, Additional history exists Mammogram 03/12/2026 03/12/2025, 09/0 03/2025, 03/12/2025, Additional history exists Tobacco Screening 03/22/2026 03/22/2025 Dental X-Ray: Full Mouth 12/30/2027 025, 04/06/2021, 05/05/2015 Pap Smear 04/08/2028 04/08/2025 Cervical Cancer Screening 04/08/2030 HPV/Cotest 04/08/2030 04/08/2025, 12/03, 12/22/2020, Additional history exists Zoster Vaccines (1 of [...] COMPLETE Routine 05/17/2025 2:1 9 PM EST PAP SMEAR Routine 04/08/2025 8:42 AM EDT HPV DNA, LOW/HIGH RISK Routine 8:42 AM EDT CASE PRESENTATION, DETAILED AND EXTENSIVE TREATMENT [...] GENERATION W/RFL Routine 04/30/2022 11:36 AM EDT from Last 3 Months or Most Recently Relevant to Health Maintenance Results * US Renal Complete (05/17/2025 2:19 PM EST) Anatomical Region Laterality Modality Kidney Ultrasound 05/17/2025 2:19 PM EST Narrative 05/17/2025 3:12 PM EST [address] [address] Ultrasound Report Signed Patient: Jen Marrero MR#: [id number] : 1980 Acct:[id number] Age/Sex: 44 / F ADM Date: 05/17/25 Loc: HO.US Attending Dr: Magaly GERONIMO Ordering Physician: Magaly Harrison Date of Service: 05/17/25 Procedure(s): US renal BI Accession Number(s): [id number] cc: Magaly Harrison; Name,Luis ECHEVARRIA Reason for [...] 05/17/25 1509 DD/ 1419 TD/TT: 05/17/25 1437 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 Donotuseinterpreter, Image - 05/17/[address] [address] Ultrasound Report Signed Patient: Jen Marrero [facility]#: [id number] : 1980Acct:[id number] Age/Sex: 44 / FADM Date: 05/17/25 Loc: HO.US Attending Dr: Magaly GERONIMO Ordering Physician: Magaly Harrison Date of Service: 05/17/25 Procedure(s): US renal BI Accession Number(s): [id number] cc: Magaly Harrison; Name,Luis ECHEVARRIA Reason for [...] by: Kamran Pollack MD 05/17/2025 03:09 PM [facility] Dictated By: Kamran Pollack MD Signed By: <Electronically signed by Kamran Pollack MD in OV> 05/17/25 1509 DD/ 1419 TD/TT: 05/17/25 1437 [employer] 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 The presence of HPV in the female genital tract isassociated with a number of diseases, including cervicalcarcinoma. The HPV DNA high risk pool tests for HPV 31, 33,35, 39, 45, 51, 52, 56, 58, 59, 66 and 68. The testing forHPV 16 and 18 genotypes has also been performed. A positiveresult indicates detection of nucleic acid sequences fromone or more subtypes, whereas a negative result indicatessuch sequences were not detected. 04/08/2025 8:42 AM EDT 04/08/2025 3:20 PM EDT us Generic External Data Provider LAB BLOOD ORDERAB LES Final Result [facility] [address] [place] [phone] * Pap Smear (04/08/2025 8:42 AM EDT) 04/08/2025 8:42 AM EDT 04/08/2025 3:20 PM EDT Narrative [facility] - 04/11/2025 11:41 AM EDT ----- ------- Name: JanesJen M Age/Sex: 44/F : 1980 Unit#: [id number] Attend Dr: Del Amador MD Re04/08/25 Status: DEP REF Location: HOGeronimoLNP Disch: ----- ------- SPEC : [id number] RECD: 04/08/25 STATUS: JOSE MCGARRY NUM: [id number] [place]: 04/08/[address] [facility] DR: Del Amador MD ENTERED: 04/08/25 SP TYPE: Pap Smr OTHR DR: Luis Mcclendon MD ORDERED: Pap Smear Interpretation Satisfactory for evaluation. Negative for intraepithelial lesion or malignancy. HPV High Risk: Negative HPV Genotyping 16: Negative HPV Genotyping 18: Negative Clinical Information LMP: Unknown date Previous PAP test: 12/23/2020, Unknown findings Other history: Encounter for annual routine gynecological examination Material Received ThinPrep-Cervical PAP Disclaimer As of April 25, 2024, the technical services to include automated prescreening performed by the ThinPrep Imaging System, PAP screening and HPV testing will be performed at [facility] (CLIA #[id number]), [address] [place] [address]. Testing for HPV was performed using the Roney RL 6800 system. The presence of HPV in the female genital tract is associated with a number of diseases, including cervical carcinoma. The HPV DNA high risk pool tests for HPV 31, 33, 35, 39, 45, 51, 52, 56, 58, 59, 66 and 68. The testing for HPV 16 and 18 genotypes has also been performed. A positive result indicates detection of nucleic acid sequences from one or more subtypes, whereas a negative result indicates such sequences were not detected. All professional services are performed by [facility] ([address] [place] [address]; ; CLIA #[id number]). The PAP Test is a screening procedure with the inherent possibility of both false negative and false positive results. Results should be interpreted in the context of historic and current clinical findings. Reliability of the PAP Test is enhanced by performing the test on a regular repetitive basis. CONTINUED ON NEXT PAGE ----- ------- Name: JanesJen Jeane Age/Sex: 44/F : 1980 Unit#: [id number] Attend Dr: Del Amador MD Re04/08/25 Status: DEP REF Location: HO.LNP Disch: ----- ------- SPEC : [id number] RECD: 04/08/25 STATUS: JOSE MATUTEIsidro NUM: [id number] [place]: 04/08/25 [facility] DR: Del Amador MD ENTERED: 04/08/25 SP TYPE: Pap Smr STEVO DR: Luis Mcclendon MD ORDERED: Pap Smear Copies To: Luis Mcclendon MD [address] [address] Del Amador MD [facility] [address] [place] [address] Drive [address] [place] [phone] ----- ------- Signed (signature on file) Tulio HewittXAVIER meehan ([facility]) 04/11/25 1141 ----- ------- END OF REPORT us Generic External Data Provider LAB CYTOLOGY JOSE CONNER Final Result Performing Organization Address City/State/[facility] Co de Phone Number [facility] [address] [place] [phone] * BI US Breast Limited Right (03/12/2025 1:01 PM EDT) Anatomical Region Laterality Modality Breast Right Ultrasound 03/12/2025 1:01 PM EDT Narrative 03/12/2025 1:56 PM EDT [address] [place] [address] Ultrasound Report Signed Patient: Jen Marrero MR#: [id number] : 1980 Acct:[id number] Age/Sex: 44 / F ADM Date: 03/12/25 Loc: [facility] Attending Dr: Del Amador MD Ordering Physician: Del Amador MD Date of Service: 03/12/25 Procedure(s): US breast RT limited mamm only Accession Number(s): [id number] cc: Name,Luis ECHEVARRIA; Del Amador MD Reason [...] 03/12/25 1354 DD/ 1301 TD/TT: 03/12/25 1324 [employer] Teacher: Procedure Note Donotuseinterpreter, Image - 03/12/2025 [facility] [address] [place] [address] Ultrasound Report Signed Patient: Jen Marrero [facility]#: [id number] : 1980Acct:[id number] Age/Sex: 44 / FADM Date: 03/12/25 Loc: HO.MAMMO Attending Dr: Del Amador MD Ordering Physician: Del Amador MD Date of Service: 03/12/25 Procedure(s): US breast RT limited mamm only Accession Number(s): [id number] cc: Name,Luis ECHEVARRIA; Del Amador MD Reason [...] 03/12/25 1354 DD/ 1301 TD/TT: 03/12/25 1324 [employer] Teacher: us [facility] External Provider IMG US PROCEDURES Final Result * BI Mammogram Diagnostic Tomosynthesis Bilateral (03/12/2025 1:01 PM EDT) Anatomical Region Laterality Modality Breast Bilateral Mammography 03/12/2025 1:01 PM EDT Narrative 03/12/2025 1:56 PM EDT [address] [place], [place] [address] Mammography Report Signed Patient: Jen Marrero MR#: [id number] : 1980 Acct:[id number] Age/Sex: 44 / F ADM Date: 03/12/25 Loc: HO.MAMMO Attending Dr: Del Amador MD Ordering Physician: Del Amador MD Results: 1Negativ e Date of Service: 03/12/25 Follow Up: 1 Year From [facility] Mammogram Procedure(s): MM tomosynthesis diagnostic BI Accession Number(s): [id number] cc: Luis Mcclendon MD; Del Amador MD [...] 03/12/25 1354 DD/ 1301 TD/TT: 03/12/25 1306 [employer] Teacher: Procedure Note Donotuseinterpreter, Image - 03/12/2025 [facility] [address] [place] [address] Mammography Report Signed Patient: Jen Marrero MMR#: [id number] : 1980Acct:[id number] Age/Sex: 44 / FADM Date: 03/12/25 Loc: HO.MAMMO Attending Dr: Del Amador MD Ordering Physician: Del Amador MDResults: 1Negativ e Date of Service: 03/12/25Follow Up: 1 Year From Orig inal Mammogram Procedure(s): MM tomosynthesis diagnostic BI Accession Number(s): [id number] cc: Luis Mcclendon MD; Del Amador MD [...] by Bonifacio Zepeda MD in OV> 03/12/25 1572 DD/ 1301 TD/TT: 03/12/25 1306 [employer] Teacher: [facility] External Provider IMG BI PROCEDURES Final [...] a test for HCV RNA (test code 27824) is suggested. For additional information please refer to http://[facility]/faq/UNM34i4 (This link is being provided for informational/ [...] purpose. For additional information please refer to http://[facility]/faq/ICJ081 (This link is being provided for informational/ educational purposes only.) The performance of this assay has not been clinically validated in patients less than 2 years old. 04/30/2022 11:3 6 AM EDT us Luis Name LAB BLOOD ORDERABLES Final Resul t CONVERTED LEGACY LABS from Last 3 Months or Most Recently Relevant to Health Maintenance [place] [place] [id number] [facility] C3 DENT[facility] [place] [id number] Care Teams Adjuster Arbitrator Relationship Specialty Start Date End Date Name, MD Luis [address] [place] [address] PCP - General Family Medicine 09/05/15
== END 2025-05-17 13:58 | disposition home or self-care (01) ==
LOC: HO.US 13:57
PROVIDERS: PCP Internal Medicine Geriatric Medicine; Visit Provider Nurse Practitioner Family
DX: N20.0 Calculus of kidney (principal)
CPT/HCPCS: 76775

== ENCOUNTER → 2025-05-17 14:17 | Outpatient (BNV) | payer MEDICAID, SELFPAY | PROVIDERS: PCP Internal Medicine Geriatric Medicine; Visit Provider Radiology Diagnostic Radiology | DX: N20.0 Calculus of kidney (principal) | CPT/HCPCS: 76775 ==